=== PATIENT | male | born 1950 | race Caucasian/White ===

== ENCOUNTER 2022-08-07 14:53 | Outpatient (OUT) | payer MEDICARE, OTHER, SELFPAY ==
--- NOTE | 2022-08-07 15:24 | CT_ITS ---
[address] [address] Patient Name: CORINE LAWTON MRN: [id number] date: 1950 Sex: M Assigned Patient Location: LAB Current Patient Location: LAB Accession/Order Number: [id number] Exam Date: 08/07/2022 15:25 Report Date: 08/07/2022 17:09 At the request of: ALEX GORE Procedure: CT lung screening low-dose EXAMINATION: CT lung screening low-dose HISTORY: Nicotine dependence F17.210 COMPARISON: CT chest 07/26/2021 TECHNIQUE: Axial, Coronal, and Sagittal images were created without the administration of IV contrast material. Dose reduction techniques were achieved by using automated exposure control and/or adjustment of mA and/or kV according to patient size and/or use of iterative reconstruction technique. FINDINGS: LUNGS: No visible pulmonary disease. PLEURA: No mass, effusion, or pneumothorax. VASCULATURE: No abnormality. SYDNIE: No mass or pathologic adenopathy. MEDIASTINUM: No mass or pathologic adenopathy. CARDIAC: No enlargement, pericardial thickening, or significant calcification. AORTA: No aneurysm or dissection. CHEST WALL: No mass or axillary adenopathy BONES: No bone lesion or fracture. LIMITED ABDOMEN: No suspicious findings. Limited images of the upper abdomen. OTHER: Negative. IMPRESSION: 1. Lung-RADS Category 1 Negative. No nodules and definitely benign nodules. Continue annual screening with LDCT in 12 months. Electronically authenticated by: LATHA CHRISTIAN Date: 08/07/2022 17:09
[2022-08-07 15:54] LABS: Basophils Percent Auto 0.4 % (0.2-2.0); Eosinophils Absolute Auto 0.1 10^3/uL (0.0-0.7); Eosinophils Percent Auto 1.1 % (0.9-7.0); Hematocrit 40.7 % (42.0-54.0); Hemoglobin 13.5 g/dL (14.0-18.0); Immature Granulocytes Abs Auto 0.04 10^3/uL (0.00-0.03); Immature Granulocytes Pct Auto 0.6 % (0.0-0.5); Lymphocytes Absolute Auto 1.2 10^3/uL (1.2-3.8); Lymphocytes Percent Auto 16.9 % (20.5-60.0); Mean Corpuscular HGB Conc 33.2 g/dL (29.9-35.2); Mean Corpuscular Volume 99.5 fL (80.0-94.0); Mean Platelet Volume 10.5 fL (9.5-13.5); Monocytes Absolute Auto 0.8 10^3/uL (0.3-0.8); Monocytes Percent Auto 11.8 % (1.7-12.0); Neutrophils Absolute Auto 4.9 10^3/uL (1.4-6.5); Neutrophils Percent Auto 69.2 % (43.0-75.0); Platelet Count 226 10^3/uL (150-450); Red Blood Count 4.09 10^6/uL (4.70-6.10); Red Cell Distribution Width 13.6 % (11.0-15.0); White Blood Count 7.1 10^3/uL (4.0-11.0)
[2022-08-07 16:19] LABS: Anion Gap 12.1; BUN Creatinine Ratio 19.4; Calcium 8.6 mg/dL (8.5-10.1); Carbon Dioxide 27.4 mmol/L (21.0-32.0); Chloride 103 mmol/L (98-107); Estimated GFR (African America >60 (>=60); Estimated GFR (Non-African Ame >60 (>=60); Glucose 91 mg/dL (74-106); Potassium 4.5 mmol/L (3.5-5.1); Sodium 138 mmol/L (136-145)
[2022-08-07 16:24] LABS: Microalbumin Urine Random <1.3 mg/dL (<=30.0)
[2022-08-07 16:24] LABS: Estimated Average Glucose 105 mg/dL; Glycohemoglobin A1C 5.3 % (4.5-6.2)
[2022-08-07 17:05] LABS: Prostate Specific Antigen Scrn 0.44 ng/mL (<=4.00)
== END 2022-08-07 14:54 ==
PROVIDERS: PCP Internal Medicine; Visit Provider Internal Medicine
DX: Z79.899 Other long term (current) drug therapy (principal); E11.65 Type 2 diabetes mellitus with hyperglycemia; Z12.5 Encounter for screening for malignant neoplasm of prostate; F17.210 Nicotine dependence, cigarettes, uncomplicated
CPT/HCPCS: 36415; 71271; 80048; 82043; 83036; 85025; G0103

== ENCOUNTER 2023-08-11 10:13 | Outpatient (OUT) | payer MEDICARE, OTHER, SELFPAY ==
--- NOTE | 2023-08-11 10:36 | CT_ITS ---
[address] [address] Patient Name: CORINE LAWTON MRN: [id number] date: 1950 Sex: M Assigned Patient Location: CT Current Patient Location: Accession/Order Number: [id number] Exam Date: 08/11/2023 10:33 Report Date: 08/12/2023 09:03 At the request of: ALEX GORE Procedure: CT lung screening low-dose EXAMINATION: CT lung screening low-dose HISTORY: Nicotine Dependence COMPARISON: CT lung cancer screening 08/07/2022, 07/26/2021, 02/12/2018 TECHNIQUE: Axial, Coronal, and Sagittal images were created without the administration of IV contrast material. Dose reduction techniques were achieved by using automated exposure control and/or adjustment of mA and/or kV according to patient size and/or use of iterative reconstruction technique. FINDINGS: LUNGS: Stable, chronic small nodule versus scarring within right minor fissure. No new nodules, suspicious nodules, or infiltrates. PLEURA: No mass, effusion, or pneumothorax. VASCULATURE: No abnormality. SYDNIE: No mass or pathologic adenopathy. MEDIASTINUM: No mass or pathologic adenopathy. CARDIAC: No enlargement, pericardial thickening, or pericardial effusion. Coronary artery calcifications: Mild. AORTA: No aneurysm or dissection. CHEST WALL: No mass or axillary adenopathy BONES: No bone lesion or fracture. LIMITED ABDOMEN: No suspicious findings. Limited images of the upper abdomen. OTHER: Negative. CT/CT lung screening low-dose IMPRESSION: 1. Lung-RADS Category 1 Negative. No nodules and definitely benign nodules. Continue annual screening with LDCT in 12 months. Electronically authenticated by: LATHA CHRISTIAN Date: 08/12/2023 09:03
[2023-08-11 11:33] LABS: Alanine Aminotransferase 19 U/L (16-63); Albumin Globulin Ratio 0.9; Albumin Level 3.4 g/dL (3.4-5.0); Alkaline Phosphatase 79 U/L (46-116); Anion Gap 13.1; Aspartate Amino Transferase 17 U/L (15-37); BUN Creatinine Ratio 21.5; Bilirubin Total 0.5 mg/dL (0.2-1.0); Calcium 8.9 mg/dL (8.5-10.1); Carbon Dioxide 29.2 mmol/L (21.0-32.0); Chloride 104 mmol/L (98-107); Estimated GFR (African America >60 (>=60); Estimated GFR (Non-African Ame >60 (>=60); Glucose 81 mg/dL (74-106); Potassium 4.3 mmol/L (3.5-5.1); Sodium 142 mmol/L (136-145); Total Protein 7.4 g/dL (6.4-8.2)
[2023-08-11 11:47] LABS: Estimated Average Glucose 123 mg/dL; Glycohemoglobin A1C 5.9 % (4.5-6.2)
[2023-08-11 11:56] LABS: Prostate Specific Antigen Scrn 0.29 ng/mL (<=4.00)
[2023-08-12 16:10] LABS: Free Kappa Lt Chains,S 34.3 mg/L (3.3-19.4); Free Lambda Lt Chains,S 20.5 mg/L (5.7-26.3); Kappa/Lambda Ratio,S 1.67 (0.26-1.65)
[2023-08-13 16:10] LABS: Immunofixation Result, Serum Comment: (.); Immunoglobulin A, Qn, Serum 182 mg/dL (61-437); Immunoglobulin G, Qn, Serum 1066 mg/dL (603-1613); Immunoglobulin M, Qn, Serum 329 mg/dL (15-143)
== END 2023-08-11 10:14 | disposition home or self-care (01) ==
LOC: CT 10:13
PROVIDERS: PCP Internal Medicine; Visit Provider Internal Medicine
DX: D47.2 Monoclonal gammopathy (principal); F17.210 Nicotine dependence, cigarettes, uncomplicated; R73.01 Impaired fasting glucose; M06.9 Rheumatoid arthritis, unspecified; Z12.5 Encounter for screening for malignant neoplasm of prostate
CPT/HCPCS: 36415; 71271; 80053; 83036; 83521; G0103

== ENCOUNTER 2024-04-07 14:10 | Outpatient (OUT) | payer MEDICARE, OTHER, SELFPAY ==
--- OUTSIDE RECORDS SUMMARY | 2024-04-07 14:27 | XMS_ITS | CCD ---
Author Organization [facility] CliniSymo Care Team Providers Care Industrial Services Worker Name Role Phone CHUCK SANCHEZ Unavailable Unavailable DO Chuck Sanchez Primary Care Provider MD Enrico Rojas Attending Provider DO Chuck Sanchez Primary Care Provider HARRISON Strickland Attending Provider DO Chuck Sanchez Primary Care Provider HARRISON Strickland Attending Provider DR CHUCK SANCHEZ Attending Unavailable SOFÍA, DR JOHNSON Consulting Unavailable SOFÍA, DR JOHNSON Primary Care Unavailable SOFÍA, DR JOHNSON Admitting Unavailable SOFÍA, DR JOHNSON Attending Unavailable SOFÍA, DR JOHNSON Consulting Unavailable SOFÍA, DR JOHNSON Primary Care Unavailable SOFÍA, DR JOHNSON Admitting Unavailable ZIEBER, DR LATHA Crane Consulting Unavailable SOFÍA, DR JOHNSON Primary Care Unavailable LALO, CHARLINE DUARTE Attending Unavailable ROSS, CHARLINE DUARTE Consulting Unavailable ROSS, CHARLINE DUARTE Admitting Unavailable BALL, DR JOHNSON Attending Unavailable BALL, DR JOHNSON Consulting Unavailable SOFÍA, DR JOHNSON Primary Care Unavailable SOFÍA, DR JOHNSON Admitting Unavailable Dalia Jenkins Unavailable Chuck Sanchez Unavailable DO Chuck Sanchez Primary Care Provider MD Enrico Rojas Attending Provider [phone] Christen Gunter Unavailable DO Chuck Sanchez Primary Care Provider MD Enrico Rojas Attending Provider CHUCK SANCHEZ Primary Care Physician [phone] Chuck Sanchez MD Primary Care Provider DO Chuck Sanchez Primary Care Provider MD Estuardo Rojas Attending Provider [phone] Bob, Estuardo Attending Unavailable Ball, Chuck Primary Care Unavailable Rojas, Estuardo Admitting Unavailable Ball, Chuck Primary Care Unavailable Rojas, Estuardo Admitting Unavailable Rojas, Estuardo Attending Unavailable Ball, Chuck Primary Care Unavailable Rojas, Estuardo Admitting Unavailable Rojas, Estuardo Attending Unavailable DOLCE, LIBAN D Attending Unavailable DOLCE, LIBAN D Attending Unavailable DOLCE, LIBAN D Referring Unavailable DOLCE, LIBAN D Attending Unavailable DOLCE, LIBAN D Attending Unavailable DOLCE, LIBAN D Referring Unavailable DOLCE, LIBAN D Referring Unavailable DOLCE, LIBAN D Attending Unavailable DOLCE, LIBAN D Attending Unavailable DOLCE, LIBAN D Referring Unavailable DOLCE, LIBAN D Referring Unavailable DOLCE, LIBAN D Attending Unavailable DOLCE, LIBAN D Attending Unavailable DOLCE, LIBAN D Attending Unavailable DOLCE, LIBAN D Attending Unavailable DOLCE, LIBAN D Attending Unavailable DOLCE, LIBAN D Attending Unavailable DOLCE, LIBAN D Attending Unavailable DOLCE, LIBAN D Referring Unavailable Allergies Allergy Classification Reported Allergen(s) Allergy Type Date of Onset Reaction(s) Facility (6 sources) patient allergy list reviewed by nurse or physicia Propensity to adverse reactions 5 Comment:Done UB. Other Medications Current Medications Medication Drug Class(es) Dates Sig (Normalized) Sig (Original) acetaminophen 325 mg / oxyCODONE hydrochloride 5 mg oral tablet (3 sources) Opioid Agonist Start: 04-02-2023 End: 04-13-2023 oxyCODONE-acetam inophen (Percocet) 5-325 MG tablet Indications: Pain Take 1 tablet by mouth 4 (four) times a day as needed for severe pain for up to 5 days TAKE 1 PILL P.O. Q.4H P.R.N. PAIN 20 tablet 0 04/08/2023 04/13/2023 Active cephalexin 500 mg oral capsule (2 sources) Cephalosporin Antibacterial Start: 04-08-2023 End: 04-18-2023 take 1 capsule by mouth in the morning, then take 1 capsule by mouth in the evening, then take 1 capsule by mouth at bedtime, then take 1 capsule by mouth three times daily cephalexin (Keflex) 500 MG capsule Indications: Skin and Skin Structure Infection Take 1 capsule (500 mg) by mouth in the morning and 1 capsule (500 mg) in the evening and 1 capsule (500 mg) before bedtime. Do all this for 10 days. TAKE 1 PILL P.O. T.I.D. FOR 10 DAYS. 30 capsule 0 04/08/2023 04/18/2023 Active folic acid 1 mg oral tablet (20 sources) Start: 07-29-2023 End: 07-29-2023 take 1 tablet by mouth once daily Folic Acid 1 mg tablet Active 1 MG PO Daily July 29, 2023 12:54pm take 1 tablet by [facility] every twenty-four hours Folic Acid 1 MG 1 tablet Orally Once a day Active methotrexate 2.5 mg oral tablet (20 sources) Folate Analog Metabolic Inhibitor Start: 07-29-2023 take 1 tablet by mouth every week Methotrexate Sodium 2.5 mg tablet Active 2.5 MG PO every week July 28, 2023 11:00pm Start: 07-16-2022 take 7 tablets by mo [facility] every week methotrexate 2.5 MG tablet TAKE 7 TABLETS BY MOUTH ONCE A WEEK 07/16/2022 Active take 6 tablets by [facility] every week Methotrexate 2.5 mg 6 tablet every week Oral weekly Active traMADol hydrochloride 50 mg oral tablet (20 sources) Opioid Agonist Start: 07-29-2023 End: 07-29-2023 take 1 tablet by mouth every six hours Tramadol 50 mg tablet Active 50 MG PO Every 6 hours July 29, 2023 12:55pm take 1 tablet by mouth every six hours traMADol HCl 50 MG 1 tablet as needed Orally every 6 hrs Active Vitamin B-12 1000 MCG/15ML (10 sources) Vitamin B-12 100 0 MCG/15ML once a month Active vitamin b12 0.0667 mg/ml oral solution (16 sources) Vitamin B12 Start: 07-29-2023 take 1000 ug by mouth every month Cyanocobalamin (Vitamin B-12) 1,000 mcg/15 mL liquid Active 1000 MCG PO every month July 28, 2023 11:00pm Vitamin B-12 100 0 MCG/15ML once a month Active Vitamin B-12 100 0 MCG/15ML once a month Active Completed/Discontinued Medications Medication Drug Class(es) Dates Sig (Normalized) Sig (Original) B-12 - up to 1000 mcg (20 sources) Start: 04-01-2023 B-12 - up to 1000 mcg Mar, 1000 mcg Start: 02-26-2023 B-12 - up to 1 000 mcg Feb, 1000 mcg Start: 01-23-2023 B-12 - up to 1 000 mcg Dec, 1 mL Start: 12-19-2022 B-12 - up to 1 000 mcg Nov, 1000 mcg Start: 11-18-2022 B-12 - up to 1 000 mcg Oct, 1000 mcg Start: 10-16-2022 B-12 - up to 1 000 mcg Sep, 1000 mcg Start: 09-12-2022 B-12 - up to 1 000 mcg Aug, 1000 mcg Start: 08-07-2022 B-12 - up to 1 000 mcg Jul, 1000 mcg Start: 07-04-2022 B-12 - up to 1 000 mcg June, 1000 mcg Start: 05-30-2022 B-12 - up to 1 000 mcg May, 1000 mcg Start: 04-25-2022 B-12 - up to 1 000 mcg Apr, 1000 mcg B-12 injection PT BROUGHT OW N MED (17 sources) Start: 03-25-2022 B-12 injection PT BROUGHT OWN MED Feb, 1000 mcg Problems Active Problems Problem Classification Problem Date Documented Date Episodic/Chronic Acquired foot deformities (3 sources) Hallux valgus; Translations: [Hallux valgus (acquired), right foot] 04-02-2023 Chronic Deficiency and other anemia (4 sources) Anemia, unspecified; Translations: [ANEMIA UNSPECIFIED] Onset: 11-16-2021 Episodic Deficiency and other anemia (15 sources) Vitamin B12 deficiency anemia due to intrinsic factor deficiency; Translations: [Pernicious anemia] Onset: 08-09-2021 Episodic Deficiency and other anemia (20 sources) Pernicious anemia; Translations: [Vitamin B12 deficiency anemia due to intrinsic factor deficiency] 07-15-2023 Episodic Deficiency and other anemia (8 sources) Anemia; Translations: [Anemia, unspecified] Episodic Diabetes mellitus with complications (20 sources) Hyperglycemia due to type 2 diabetes mellitus; Translations: [Type 2 diabetes mellitus with hyperglycemia] Onset: 11-29-2014 Chronic Diabetes mellitus without complication (20 sources) Impaired fasting glucose; Translations: [Impaired fasting glycemia] Onset: 07-26-2021 Episodic Disorders of lipid metabolism (9 sources) Hyperlipidemia, unspecified; Translations: [Hyperlipidemia] Onset: 08-09-2021 Chronic Hyperplasia of prostate (16 sources) Benign prostatic hypertrophy without outflow obstruction; Translations: [Hypertrophy (benign) of prostate without urinary obstruction and other lower urinary tract symptoms [LUTS]] Onset: 11-29-2014 Chronic Immunizations and screening for infectious disease (8 sources) Vaccination given; Translations: [Encounter for immunization] Episodic Neoplasms of unspecified nature or uncertain behavior (20 sources) Monoclonal paraproteinemia; Translations: [Monoclonal gammopathy] 07-27-2023 Chronic Neoplasms of unspecified nature or uncertain behavior (4 sources) Neoplasm of uncertain behavior of skin; Translations: [Neoplasm of uncertain behavior of skin] 11-26-2023 Episodic Nutritional deficiencies (2 sources) Deficiency of other specified B group vitamins; Translations: [Other B-complex deficiencies] 10-20-2023 Episodic Osteoarthritis (20 sources) Degenerative joint disease involving multiple joints; Translations: [Polyosteoarthritis, unspecified] Onset: 06-09-2014 Chronic Other acquired deformities (17 sources) Spondylolysis; Translations: [Spondylolysis, lumbar region] Episodic Other acquired deformities (1 source) Spondylolysis, lumbar region Episodic Other acquired deformities (20 sources) Deformity of metatarsal; Translations: [Unspecified acquired deformity of unspecified lower leg] Onset: 11-27-2022 Resolved: 11-27-2022 11-27-2022 Episodic Other aftercare (1 source) Other meterman (current) drug therapy Episodic Other aftercare (8 sources) Long-term current use of drug therapy; Translations: [Other usp (current) drug therapy] Episodic Other connective tissue disease (8 sources) Pain in left foot; Translations: [Pain in left foot] 11-26-2023 Episodic Other injuries and conditions due to external causes (8 sources) History of fall; Translations: [History of falling] Episodic Other lower respiratory disease (1 source) Other nonspecific abnormal finding of lung field Episodic Other lower respiratory disease (8 sources) Lung field abnormal; Translations: [Other nonspecific abnormal finding of lung field] Episodic Other lower respiratory disease (8 sources) Solitary nodule of lung; Translations: [Solitary pulmonary nodule] Episodic Other lower respiratory disease (9 sources) Nodule of lung; Translations: [Solitary pulmonary nodule] 07-27-2023 Episodic Comment on above: LDCT w/o suspicious nodules - 07/2021, 07/2022, 07/2023 Other lower respiratory disease (5 sources) Solitary pulmonary nodule; Translations: [Solitary pulmonary nodule] 07-29-2023 Episodic Other nervous system disorders (17 sources) Chronic pain; Translations: [Other chronic pain] Chronic Other nervous system disorders (8 sources) Chronic pain syndrome; Translations: [Chronic pain syndrome] Onset: 06-09-2014 Chronic Other non-traumatic joint disorders (20 sources) Arthralgia of the lower leg; Translations: [Pain in left knee] Episodic Other screening for suspected conditions (not mental disorders or infectious disease) (8 sources) Encounter for screening for malignant neoplasm of prostate; Translations: [Encounter for screening for malignant neoplasm of colon] Onset: 08-09-2021 Episodic Rheumatoid arthritis and related disease (20 sources) Rheumatoid arthritis with rheumatoid factor 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 organ or systems involvement; Translations: [Rheumatoid arthritis with rheumatoid factor of left hand without organ or systems involvement] Onset: 06-09-2014 Chronic Spondylosis; intervertebral disc disorders; other back problems (20 sources) Lumbosacral spondylosis without myelopathy; Translations: [Spondylosis without myelopathy or radiculopathy, lumbar region] Onset: 02-11-2017 07-27-2023 Chronic Spondylosis; intervertebral disc disorders; other back problems (17 sources) Low back pain; Translations: [Low back pain] Episodic Substance-related disorders (20 sources) Nicotine dependence, cigarettes, uncomplicated; Translations: [Nicotine dependence] Onset: 08-09-2021 Chronic Unclassified (1 source) Rheumatoid arthritis with rheumatoid factor of multiple sites without organ or systems involvement; Translations: [Rheumatoid arthritis with rheumatoid factor of multiple sites without organ or systems involvement] Onset: 12-04-2022 Viral infection (4 sources) Verruca plantaris; Translations: [Plantar wart] 11-26-2023 Episodic Past or Other Problems Problem Classification Problem Date Documented Da te Episodic/Chronic Bacterial infection; unspecified site (8 sources) Bacterial infectious disease; Translations: [Bacterial infection, unspecified, in conditions classified elsewhere and of unspecified site] Onset: 03-18-2018 Episodic Genitourinary symptoms and ill-defined conditions (16 sources) Nocturia; Translations: [Nocturia] Onset: 02-11-2017 Episodic Inflammatory conditions of male genital organs (8 sources) Acute prostatitis; Translations: [Acute prostatitis] Onset: 03-18-2018 Episodic Malaise and fatigue (8 sources) Malaise and fatigue; Translations: [Other malaise and fatigue] Onset: 08-31-2015 Episodic Other connective tissue disease (8 sources) Ganglion and cyst of synovium, tendon and bursa; Translations: [Other ganglion and cyst of synovium, tendon, and bursa] Onset: 06-09-2014 Episodic Residual codes; unclassified (8 sources) Tobacco user; Translations: [Tobacco use] Onset: 02-11-2017 Episodic Skin and subcutaneous tissue infections (14 sources) Abscess of foot; Translations: [Cutaneous abscess of unspecified foot] Onset: 11-27-2022 Resolved: 11-27-2022 11-27-2022 Episodic Unclassified (8 sources) Long-term current use of drug therapy; Translations: [Long-term (current) use of other medications] Onset: 03-18-2018 Results Test Name Value Interpretation Reference Range Facility XR Foot - left 3 [facility] Result: XRAY: Three views were taken today AP/MO/LAT foot: significant degenerative arthritis noted of the left 1st metatarsophalangeal joint with severe osteophytic formation great toe joint appears to be subluxed with cystic formation noted. The lesser metatarsophalangeal joints are subluxed Fourth and 5th metatarsus not degenerative arthritis noted of the 2nd and 3rd metatarsal. s well with significant ankylosis noted. Severe fibular deviation noted as well with mild osteopenia. [facility] Radiology Study observation (narrative) [facility] Estimated glomerular filtrat ion rate (GFR) non- Americanon 08-11-2023 GFR/1.73 sq M.predicted among non-blacks MDRD (S/P/Bld) [Vol rate/Area] mL/min/{1.73_m2} >=60 [facility] Globulin Calc (S) [Mass/Vol] on 08-11-2023 Globulin (S) [Mass/Vol] 4.0 g/dL [facility] Glucose mean value [Mass/vol ume] in Blood Estimated from glycated hemoglobinon 08-11-2023 Average glucose Estimated from glycated hemoglobin (Bld) [Mass/Vol] 123 mg/dL [facility] IgA [Mass/volume] in Serum o r Plasmaon 08-11-2023 IgA [Mass/Vol] 182 mg/dL 61-437 [facility] IgG [Mass/volume] in Serum o r Plasmaon 08-11-2023 IgG [Mass/Vol] 1066 mg/dL 603-1613 [facility] IgM [Mass/volume] in Serum o r Plasmaon 08-11-2023 IgM [Mass/Vol] 329 mg/dL Abnormal 15-143 [facility] Comment on above: Performed at: [facility] [address] [id number] Director: Jesus Nam PhD, Phone: [phone] Immunoglobulin light chains. kappa.free [Mass/volume] in Serumon 08-11-2023 Immunoglobulin light chains.kappa.free (S) [Mass/Vol] 34.3 mg/L Abnormal 3.3-19.4 [facility] Immunoglobulin light chains. kappa.free/Immunoglobulin light chains.lambda.free [Julieth 08-11-2023 Immunoglobulin light chains.kappa.free/Immun oglobulin light chains.lambda.free (S) [Mass ratio] 1.67 Abnormal 0.26-1.65 [facility] Comment on above: Performed at: [facility] [id number] Director: Jesus Nam PhD, Phone: [phone] Immunoglobulin light chains. lambda.free [Mass/volume] in Serum or Plasmaon 08-11-2023 Immunoglobulin light chains.lambda.free [Mass/Vol] 20.5 mg/L 5.7-26.3 [facility] Laboratory - Chemistry and C hemistry - challengeon 08-11-2023 Albumin [Mass/Vol] 3.4 g/dL 3.4-5.0 [facility] ALP [Catalytic activity/Vol] 79 U/L 46-116 [facility] ALT [Catalytic activity/Vol] 19 U/L 16-63 [facility] AST [Catalytic activity/Vol] 17 U/L 15-37 [facility] Bilirubin [Mass/Vol] 0.5 mg/dL 0.2-1.0 [facility] Calcium [Mass/Vol] 8.9 mg/dL 8.5-10.1 [facility] Chloride [Moles/Vol] 104 mmol/L 98-107 [facility] CO2 [Moles/Vol] 29.2 mmol/L 21.0-32.0 [facility] Creatinine [Mass/Vol] 1.07 mg/dL 0.70-1.30 [facility] GFR/1.73 sq M.predicted MDRD (S/P/Bld) [Vol rate/Area] mL/min/{1.73_m2} >=60 [facility] Glucose [Mass/Vol] 81 mg/dL 74-106 [facility] Potassium [Moles/Vol] 4.3 mmol/L 3.5-5.1 [facility] Protein [Mass/Vol] 7.4 g/dL 6.4-8.2 [facility] Sodium [Moles/Vol] 142 mmol/L 136-145 [facility] Urea nitrogen [Mass/Vol] 23.0 mg/dL High 7.0-18.0 [facility] Urea nitrogen/Creatinine [Mass ratio] 21.5 mg/mg [facility] Laboratory - Hematology and Cell countson 08-11-2023 HbA1c (Bld) [Mass fraction] 5.9 % 4.5-6.2 [facility] Comment on above: ADA RECOMMENDED LIMI T 4.0 - 6.0ADA THERAPEUTIC TARGET < 7.0ACTION SUGGESTED> 7.0 No Panel Informationon 08-10 Prostate Specific Antigen Screen 0.29 ng/mL <=4.00 [facility] Serum Immunofixation Comment: . [facility] Comment on above: Presence of monoclon al protein is unclear at this time. Suggestrepeat in 3 to 6 months if clinically indicated. Serum or plasma albumin/glob ulin mass ratioon 08-11-2023 Albumin/Globulin [Mass ratio] 0.9 {ratio} [facility] Serum or plasma anion gap de terminationon 08-11-2023 Anion gap [Moles/Vol] 13.1 mmol/L [facility] Alanine aminotransferase [En zymatic activity/volume] in Serum or PlasmaOrdered By: Madhuri Strickland on 08-06-2023 ALT [Catalytic activity/Vol] 11 U/L 7-52 [facility] Comment on above: Performed By: #### C MP, ESR, CBC #### [place] [address] [place] Albumin [Mass/volume] in Ser um or Plasma by Bromocresol green (BCG) dye binding methoOrdered By: Madhuri Strickland on 08-06-2023 Albumin BCG dye [Mass/Vol] 4.0 g/dL 3.5-5.7 [facility] Alkaline phosphatase [Enzyma tic activity/volume] in Serum or PlasmaOrdered By: Madhuri Strickland on 08-06-2023 ALP [Catalytic activity/Vol] 63 U/L 34-104 [facility] Comment on above: Result Comment: PERF ORMED BY: [place] [address] PATHOLOGIST BLUE LEATHER SORTER SANDRA CHA M.D. Performed By: #### C MP, ESR, CBC #### [address] Aspartate aminotransferase [ Enzymatic activity/volume] in Serum or PlasmaOrdered By: Madhuri Strickland on 08-06-2023 AST [Catalytic activity/Vol] 15 U/L 13-39 [facility] Comment on above: Performed By: #### C MP, ESR, CBC #### [address] Automated basophil %Ordered By: Madhuri Strickland on 08-06-2023 Basophils/100 WBC (Bld) 0.7 % . [facility] Comment on above: Performed By: #### C MP, ESR, CBC #### [address] Automated basophil countOrde red By: Madhuri Strickland on 08-06-2023 Basophils (Bld) [#/Vol] 0.0 10*3/uL 0.0-0.2 [facility] Comment on above: Performed By: #### C MP, ESR, CBC #### [address] Automated blood monocyte cou ntOrdered By: Madhuri Strickland on 08-06-2023 Monocytes (Bld) [#/Vol] 0.7 10*3/uL 0.0-0.8 [facility] Comment on above: Performed By: #### C MP, ESR, CBC #### [address] Automated eosinophil %Ordere d By: Madhuri Strickland on 08-06-2023 Eosinophils/100 WBC (Bld) 1.7 % . [facility] Comment on above: Performed By: #### C MP, ESR, CBC #### [address] Automated eosinophil countOr dered By: Madhuri Strickland on 08-06-2023 Eosinophils (Bld) [#/Vol] 0.1 10*3/uL 0.0-0.45 [facility] Comment on above: Performed By: #### C MP, ESR, CBC #### [address] Automated monocyte %Ordered By: Madhuri Strickland on 08-06-2023 Monocytes/100 WBC (Bld) 10.1 % . [facility] Comment on above: Performed By: #### C MP, ESR, CBC #### [address] Automated neutrophil %Ordere d By: Madhuri Strickland on 08-06-2023 Neutrophils/100 WBC (Bld) 70.0 % . [facility] Comment on above: Performed By: #### C MP, ESR, CBC #### [address] Bilirubin.total [Mass/volume ] in Serum or PlasmaOrdered By: Madhuri Strickland on 08-06-2023 Bilirubin [Mass/Vol] 0.5 mg/dL 0.3-1.0 [facility] Comment on above: Performed By: #### C MP, ESR, CBC #### [facility] [address] [place] [address] Calcium [Mass/volume] in Ser um or PlasmaOrdered By: Madhuri Strickland on 08-06-2023 Calcium [Mass/Vol] 9.0 mg/dL 8.6-10.3 [facility] Comment on above: Performed By: #### C MP, ESR, CBC #### [address] Carbon dioxide, total [Moles /volume] in Serum or PlasmaOrdered By: Madhuri Strickland on 08-06-2023 CO2 [Moles/Vol] 26.2 mmol/L 21.0-31.0 [facility] Comment on above: Performed By: #### C MP, ESR, CBC #### [address] Chloride [Moles/volume] in S yun or PlasmaOrdered By: Madhuri Strickland on 08-06-2023 Chloride [Moles/Vol] 105 mmol/L 98-107 [facility] Comment on above: Performed By: #### C MP, ESR, CBC #### [address] Complete Blood Count Auto Di ffon 08-06-2023 Mean Corpuscular HGB Conc 33.1 g/dL Normal 32.5-35.6 [facility] Comment on above: Performed By: #### C MP, ESR, CBC #### [address] NRBC% 0.0 /100{WBC} Normal 0-0.5 [facility] Comment on above: Performed By: #### C MP, ESR, CBC #### [address] Comprehensive Metabolic Pane ben 08-06-2023 Albumin [Mass/Vol] 4.0 g/dL Normal 3.5-5.7 [facility] Comment on above: Performed By: #### C MP, ESR, CBC #### [address] GFR/1.73 sq M.predicted MDRD (S/P/Bld) [Vol rate/Area] mL/min/{1.73_m2} Normal [facility] Comment on above: Performed By: #### C MP, ESR, CBC #### [address] Creatinine [Mass/volume] in Serum or PlasmaOrdered By: Madhuri Strickland on 08-06-2023 Creatinine [Mass/Vol] 1.00 mg/dL 0.70-1.30 [facility] Comment on above: Performed By: #### C MP, ESR, CBC #### [address] Erythrocyte Sedimentation Ra avelina 08-06-2023 ESR (Bld) [Velocity] 27 mm/h High 0-19 [facility] Comment on above: Result Comment: PERF ORMED BY: [place] [address] PATHOLOGIST BLUE LEATHER SORTER SANDRA CHA M.D. Performed By: #### C MP, ESR, CBC #### [address] Erythrocyte distribution wid th [Ratio] by Automated countOrdered By: Madhuri Strickland on 08-06-2023 Erythrocyte distribution width (RBC) [Ratio] 13.2 % 12.0-14.8 [facility] Comment on above: Performed By: #### C MP, ESR, CBC #### [address] Erythrocyte sedimentation ra te by Photometric methodOrdered By: Madhuri Strickland on 08-06-2023 ESR Photometric method (Bld) [Velocity] 27 mm/hr High 0-19 [facility] Erythrocytes [#/volume] in B lood by Automated countOrdered By: Madhuri Strickland on 08-06-2023 RBC (Bld) [#/Vol] 4.41 10*6/uL 3.90-5.60 [facility] Comment on above: Performed By: #### C MP, ESR, CBC #### [facility] [address] Glucose [Mass/volume] in Ser um or PlasmaOrdered By: Madhuri Strickland on 08-06-2023 Glucose [Mass/Vol] 123 mg/dL High 70-100 [facility] Comment on above: ADA recommended refe rence rangeRandom Glucose Reference Range is dependent on time and content of last meal. Glucose of more than 200 mg/dL in a nonstressed, ambulatory subject supports the diagnosis of Diabetes Mellitus. Result Comment: Edroy om Glucose Reference Range is dependent on time and content of last meal. Glucose of more than 200 mg/dL in a nonstressed, ambulatory subject supports the diagnosis of Diabetes Mellitus. ADA recommended reference range Performed By: #### C MP, ESR, CBC #### [facility] [address] Hematocrit [Volume Fraction] of Blood by Automated countOrdered By: Madhuri Strickland on 08-06-2023 Hematocrit (Bld) [Volume fraction] 41.3 % 38.8-50.0 [facility] Comment on above: Performed By: #### C MP, ESR, CBC #### [facility] [address] Hemoglobin [Mass/volume] in BloodOrdered By: Madhuri Strickland on 08-06-2023 Hemoglobin (Bld) [Mass/Vol] 13.7 g/dL 13.0-17.0 [facility] Comment on above: Performed By: #### C MP, ESR, CBC #### [facility] [address] Leukocytes [#/volume] correc matthias for nucleated erythrocytes in Blood by Automated counOrdered By: Madhuri Strickland on 08-06-2023 WBC corrected for nucl RBC Auto (Bld) [#/Vol] 6.6 10*3/uL 4.1-10.5 [facility] Leukocytes [#/volume] in Blo od by Automated countOrdered By: Madhuri Strickland on 08-06-2023 WBC (Bld) [#/Vol] 6.6 10*3/uL 4.1-10.5 [facility] Comment on above: Performed By: #### C MP, ESR, CBC #### [address] Lymphocytes [#/volume] in Bl ood by Automated countOrdered By: Madhuri Strickland on 08-06-2023 Lymphocytes (Bld) [#/Vol] 1.2 10*3/uL 1.00-4.8 [facility] Comment on above: Performed By: #### C MP, ESR, CBC #### [address] Lymphocytes/100 leukocytes i n Blood by Automated countOrdered By: Madhuri Strickland on 08-06-2023 Lymphocytes/100 WBC (Bld) 17.5 % . [facility] Comment on above: Performed By: #### C MP, ESR, CBC #### [address] MCH [Entitic mass] by Automa matthias countOrdered By: Madhuri Strickland on 08-06-2023 MCH (RBC) [Entitic mass] 31.0 pg 27.5-35.2 [facility] Comment on above: Performed By: #### C MP, ESR, CBC #### [facility] [address] [place] [address] MCHC Auto (RBC) [Mass/Vol]Or dered By: Madhuri Strickland on 08-06-2023 MCHC (RBC) [Mass/Vol] 33.1 g/dL 32.5-35.6 [facility] MCV [Entitic volume] by Auto mated countOrdered By: Madhuri Strickland on 08-06-2023 MCV (RBC) [Entitic vol] 93.7 fL 83.5-101 [facility] Comment on above: Performed By: #### C MP, ESR, CBC #### [address] [address] [place] Neutrophils [#/volume] in Bl ood by Automated countOrdered By: Madhuri Strickland on 08-06-2023 Neutrophils (Bld) [#/Vol] 4.6 10*3/uL 1.8-7.7 [facility] Comment on above: Performed By: #### C MP, ESR, CBC #### [facility] [address] [place] [address] No Panel InformationOrdered By: Madhuri Strickland on 08-06-2023 Estimated GFR (CKD-EPI) > 60.0 mL/Min [facility] Creatinine Clearance (Chem N/A [facility] Nucleated erythrocytes [Pres ence] in Blood by Automated countOrdered By: Madhuri Strickland on 08-06-2023 Nucleated RBC Auto Ql (Bld) 0.0 /100{WBC} 0-0.5 [facility] Platelet mean volume [Entiti c volume] in Blood by Automated countOrdered By: Madhuri Strickland on 08-06-2023 Platelet mean volume (Bld) [Entitic vol] 12.4 fL High 6.6-10.1 [facility] Comment on above: Performed By: #### C MP, ESR, CBC #### [facility] [address] [place] [address] Platelets [#/volume] in Bloo d by Automated countOrdered By: Madhuri Strickland on 08-06-2023 Platelets (Bld) [#/Vol] 178 10*3/uL 150-450 [facility] Comment on above: Performed By: #### C MP, ESR, CBC #### [facility] [address] [place] [address] [place] Potassium [Moles/volume] in Serum or PlasmaOrdered By: Madhuri Strickland on 08-06-2023 Potassium [Moles/Vol] 4.7 mmol/L 3.5-5.1 [facility] Comment on above: Performed By: #### C MP, ESR, CBC #### [facility] [address] [place] [address] [place] Protein [Mass/volume] in Ser um or PlasmaOrdered By: Madhuri Strickland on 08-06-2023 Protein [Mass/Vol] 6.5 g/dL 6.4-8.9 [facility] Comment on above: Performed By: #### C MP, ESR, CBC #### [address] Serum globulin measurement b y calculation (mass/volume)Ordered By: Madhuri Strickland on 08-06-2023 Globulin (S) [Mass/Vol] 2.5 g/dL [facility] Comment on above: Performed By: #### C MP, ESR, CBC #### [address] Serum or plasma albumin/glob ulin mass ratioOrdered By: Madhuri Strickland on 08-06-2023 Albumin/Globulin [Mass ratio] 1.6 {ratio} [facility] Comment on above: Performed By: #### C MP, ESR, CBC #### [address] Serum or plasma anion gap de terminationOrdered By: Madhuri Strickland on 08-06-2023 Anion gap [Moles/Vol] 11.5 mmol/L 6.0-15.[address] [facility] Comment on above: Performed By: #### C MP, ESR, CBC #### [address] Sodium [Moles/volume] in Ser um or PlasmaOrdered By: Madhuri Strickland on 08-06-2023 Sodium [Moles/Vol] 138 mmol/L 136-145 [facility] Comment on above: Performed By: #### C MP, ESR, CBC #### [address] Urea nitrogen [Mass/volume] in Serum or PlasmaOrdered By: Madhuri Strickland on 08-06-2023 Urea nitrogen [Mass/Vol] 24 mg/dL 7-25 [facility] Comment on above: Performed By: #### C MP, ESR, CBC #### [facility] [address] CHEMISTRYOrdered By: SYSTEM SYSTEM on 03-12-2023 Anion gap [Moles/Vol] 9 mmol/L Normal 6 - 16 mEq/L [facility] Calcium [Mass/Vol] 9.3 mg/dL Normal 8.9 - 11. 1 mg/dL [facility] Chloride [Moles/Vol] 106 mmol/L Normal 101 - 1 11 mmol/L [facility] CO2 [Moles/Vol] 30 mmol/L Normal 21 - 31 mmol/L [facility] Creatinine [Mass/Vol] 0.9 mg/dL Normal 0.5 - 1.3 mg/dL [facility] eGFR 91 mL/min/1.73 m2 Normal >=59mL/min / 1.73 m2 [facility] Glucose [Mass/Vol] 90 mg/dL Normal 55 - 199 mg/dL [facility] Potassium [Moles/Vol] 4.3 mmol/L Normal 3.5 - 5.3 mmol/L [facility] Sodium [Moles/Vol] 141 mmol/L Normal 135 - 145 mmol/L [facility] Urea nitrogen [Mass/Vol] 19 mg/dL Normal 5 - 21 mg/dL [facility] Urea nitrogen/Creatinine [Mass ratio] 21 mg/mg High 10 - 20 [facility] HEMATOLOGYOrdered By: SYSTEM SYSTEM on 03-12-2023 Basophil Absolute 0.0 E9/L Normal 0.0 - 0.2 E9/L [facility]e Basophils/100 WBC (Bld) 0.5 % Normal 0.0 - 2.0 % [facility]e Eos Absolute 0.1 E9/L Normal 0.0 - 0.5 E9/L [facility] Eosinophils/100 WBC (Bld) 0.8 % Normal 0.0 - 8.0 % [facility] Erythrocyte distribution width (RBC) [Ratio] 14.0 % Normal 10.9 - 14.2 % [facility] Hematocrit (Bld) [Volume fraction] 45.0 % Normal 37.7 - 49.0 % [facility] Hemoglobin (Bld) [Mass/Vol] 14.7 g/dL Normal 13.5 - 17.5 gm/dL [facility] Lymph Absolute 1.2 E9/L Normal 1.0 - 4.0 E9/L [facility]e Lymphocytes/100 WBC (Bld) 14.2 % Normal 14.0 - 50.0 % [facility]e MCH (RBC) [Entitic mass] 32.5 pg Normal 27.0 - 34.0 pg [facility] Heme MCHC (RBC) [Mass/Vol] 32.5 g/dL Normal 31.4 - 36.0 gm/dL [facility]e MCV (RBC) [Entitic vol] 99.9 fL Normal 80.0 - 100.0 fL [facility] Heme [place] Absolute 1.0 E9/L Normal 0.2 - 1.0 E9/L [facility]e Monocytes/100 WBC (Bld) 11.3 % Normal 4.0 - 14.0 % [facility] Neutro Absolute 6.3 E9/L Normal 2.0 - 7.5 E9/L [facility] Neutro Auto 73.2 % Normal 36.0 - 75.0 % [facility] Platelet 212.0 E9/L Normal 150.0 - 500.0 E9/L [facility] Platelet mean volume (Bld) [Entitic vol] 9.6 fL Normal 6.4 - 10.8 fL [facility] Heme RBC 4.5 E12/L Normal 4.3 - 5.9 E12/L [facility] WBC 8.7 E9/L Normal 4.0 - 11.0 E9/L [facility] Heme Complete Blood Count Auto Di ffon 12-04-2022 Basophils (Bld) [#/Vol] 0.0 10*3/uL Normal 0.0-0.2 [facility] Comment on above: Performed By: #### E SR, CMP, CBC #### [facility] [address] [place] [address] [place] Basophils/100 WBC (Bld) 0.6 % Normal . [facility] Comment on above: Performed By: #### E SR, CMP, CBC #### [facility] [address] [place] [address] [place] Eosinophils (Bld) [#/Vol] 0.1 10*3/uL Normal 0.0-0.45 [facility] Comment on above: Performed By: #### E SR, CMP, CBC #### [address] Eosinophils/100 WBC (Bld) 0.8 % Normal . [facility] Comment on above: Performed By: #### E SR, CMP, CBC #### [address] Erythrocyte distribution width (RBC) [Ratio] 14.3 % Normal 12.0-14.8 [facility] Comment on above: Performed By: #### E SR, CMP, CBC #### [address] Hematocrit (Bld) [Volume fraction] 42.0 % Normal 38.8-50.0 [facility] Comment on above: Performed By: #### E SR CMP, CBC #### [address] Hemoglobin (Bld) [Mass/Vol] 14.0 g/dL Normal 13.0-17.0 [facility] Comment on above: Performed By: #### E SR CMP, CBC #### [address] Lymphocytes (Bld) [#/Vol] 1.2 10*3/uL Normal 1.00-4.8 [facility] Comment on above: Performed By: #### E SR, CMP, CBC #### [address] Lymphocytes/100 WBC (Bld) 16.2 % Normal . [facility] Comment on above: Performed By: #### E SR, CMP, CBC #### [address] MCH (RBC) [Entitic mass] 32.9 pg Normal 27.5-35.2 [facility] Comment on above: Performed By: #### E SR, CMP, CBC #### [address] MCV (RBC) [Entitic vol] 98.4 fL Normal 83.5-101 [facility] Comment on above: Performed By: #### E SR, CMP, CBC #### [address] Mean Corpuscular HGB Conc 33.4 g/dL Normal 32.5-35.6 [facility] Comment on above: Performed By: #### E SR, CMP, CBC #### [facility] [address] Monocytes (Bld) [#/Vol] 0.5 10*3/uL Normal 0.0-0.8 [facility] Comment on above: Performed By: #### E SR, CMP, CBC #### [address] Monocytes/100 WBC (Bld) 7.3 % Normal . [facility] Comment on above: Performed By: #### E SR, CMP, CBC #### [address] Neutrophils (Bld) [#/Vol] 5.6 10*3/uL Normal 1.8-7.7 [facility] Comment on above: Performed By: #### E SR, CMP, CBC #### [address] Neutrophils/100 WBC (Bld) 75.1 % Normal . [facility] Comment on above: Performed By: #### E SR, CMP, CBC #### [address] NRBC% 0.1 /100{WBC} Normal 0-0.5 [facility] Comment on above: Performed By: #### E SR, CMP, CBC #### [address] Platelet mean volume (Bld) [Entitic vol] 10.8 fL High 6.6-10.1 [facility] Comment on above: Performed By: #### E SR, CMP, CBC #### [address] Platelets (Bld) [#/Vol] 186 10*3/uL Normal 150-450 [facility] Comment on above: Performed By: #### E SR, CMP, CBC #### [address] RBC (Bld) [#/Vol] 4.27 10*6/uL Normal 3.90-5.60 [facility] Comment on above: Performed By: #### E SR, CMP, CBC #### [address] WBC (Bld) [#/Vol] 7.5 10*3/uL Normal 4.1-10.5 [facility] Comment on above: Performed By: #### E SR, CMP, CBC #### [address] Comprehensive Metabolic Pane ben 12-04-2022 Albumin [Mass/Vol] 4.2 g/dL Normal 3.5-5.7 [facility] Comment on above: Performed By: #### E SR, CMP, CBC #### [address] Albumin/Globulin [Mass ratio] 1.8 {ratio} Normal [facility] Comment on above: Performed By: #### E SR, CMP, CBC #### [address] ALP [Catalytic activity/Vol] 58 U/L Normal 34-104 [facility] Comment on above: Result Comment: PERF ORMED BY: [place] [address] PATHOLOGIST BLUE LEATHER SORTER SANDRA CHA M.D. Performed By: #### E SR, CMP, CBC #### [address] ALT [Catalytic activity/Vol] 10 U/L Normal 7-52 [facility] Comment on above: Performed By: #### E SR, CMP, CBC #### [address] Anion gap [Moles/Vol] 8.2 mmol/L Normal 6.0-15.0 [facility] Comment on above: Performed By: #### E SR, CMP, CBC #### [facility] [address] AST [Catalytic activity/Vol] 13 U/L Normal 13-39 [facility] Comment on above: Performed By: #### E SR CMP, CBC #### [facility] [address] [place] [id number] [facility] Bilirubin [Mass/Vol] 0.4 mg/dL Normal 0.3-1.0 [facility] Comment on above: Performed By: #### E SR, CMP, CBC #### [facility] [address] Calcium [Mass/Vol] 9.2 mg/dL Normal 8.6-10.3 [facility] Comment on above: Performed By: #### E SR CMP, CBC #### [facility] [address] Chloride [Moles/Vol] 105 mmol/L Normal 98-107 [facility] Comment on above: Performed By: #### E SR CMP, CBC #### [place] [address] [place] CO2 [Moles/Vol] 31.0 mmol/L Normal 21.0-31.0 [facility] Comment on above: Performed By: #### E SR CMP, CBC #### [facility] [address] [place] [address] [place] Creatinine [Mass/Vol] 1.00 mg/dL Normal 0.70-1.30 [facility] Comment on above: Performed By: #### E SR CMP, CBC #### [place] [id number] [place] GFR/1.73 sq M.predicted MDRD (S/P/Bld) [Vol rate/Area] mL/min/{1.73_m2} Normal [facility] Comment on above: Performed By: #### E SR, CMP, CBC #### [facility] [address] [place] [address] [place] Globulin (S) [Mass/Vol] 2.3 g/dL Normal [facility] Comment on above: Performed By: #### E SR, CMP, CBC #### [address] Glucose [Mass/Vol] 162 mg/dL High 70-100 [facility] Comment on above: Result Comment: [place] Glucose Reference Range is dependent on time and content of last meal. Glucose of more than 200 mg/dL in a nonstressed, ambulatory subject supports the diagnosis of Diabetes Mellitus. ADA recommended reference range Performed By: #### E SUE ACUÑA, CBC #### [address] Potassium [Moles/Vol] 4.2 mmol/L Normal 3.5-5.1 [facility] Comment on above: Performed By: #### E SUE ACUÑA, CBC #### [address] Protein [Mass/Vol] 6.5 g/dL Normal 6.4-8.9 [facility] Comment on above: Performed By: #### E SUE ACUÑA, CBC #### [address] Sodium [Moles/Vol] 140 mmol/L Normal 136-145 [facility] Comment on above: Performed By: #### E SUE ACUÑA, CBC #### [address] Urea nitrogen [Mass/Vol] 13 mg/dL Normal 7-25 [facility] Comment on above: Performed By: #### E SUE ACUÑA, CBC #### [address] Erythrocyte Sedimentation Ra avelina 12-04-2022 ESR (Bld) [Velocity] 22 mm/h High 0-19 [facility] Comment on above: Result Comment: PERF ORMED BY: [place] [address] PATHOLOGIST BLUE LEATHER SORTER SANDRA CHA M.D. Performed By: #### E SR CMP, CBC #### [address] Physician Orderon 11-28-2022 Physician Order [id number] D:127 Normal [facility] Physician Orderon 11-27-2022 Physician Order [id number] D:127 Normal [facility] Alanine aminotransferase [En zymatic activity/volume] in Serum or PlasmaOrdered By: Estuardo Rojas on 09-05-2022 ALT [Catalytic activity/Vol] 14 U/L Normal 7-52 [facility] Comment on above: Performed By: #### E SR, CMP, CBC #### [facility] [address] Albumin [Mass/volume] in Ser um or Plasma by Bromocresol green (BCG) dye binding methoOrdered By: Estuardo Rojas on 09-05-2022 Albumin BCG dye [Mass/Vol] 3.9 g/dL 3.5-5.7 [facility] Alkaline phosphatase [Enzyma tic activity/volume] in Serum or PlasmaOrdered By: Estuardo Rojas on 09-05-2022 ALP [Catalytic activity/Vol] 46 U/L Normal 34-104 [facility] Comment on above: Result Comment: PERF ORMED BY: [place] [address] PATHOLOGIST BLUE LEATHER SORTER SANDRA CHA M.D. Performed By: #### E SR, CMP, CBC #### [facility] [address] [place] [address] Aspartate aminotransferase [ Enzymatic activity/volume] in Serum or PlasmaOrdered By: Estuardo Rojas on 09-05-2022 AST [Catalytic activity/Vol] 16 U/L Normal 13-39 [facility] Comment on above: Performed By: #### E SR, CMP, CBC #### [facility] [address] [place] [address] Automated basophil %Ordered By: Estuardo Rojas on 09-05-2022 Basophils/100 WBC (Bld) 0.6 % Normal . [facility] Comment on above: Performed By: #### E SR, CMP, CBC #### [address] Automated basophil countOrde red By: Estuardo Rojas on 09-05-2022 Basophils (Bld) [#/Vol] 0.0 10*3/uL Normal 0.0-0.2 [facility] Comment on above: Performed By: #### E SR, CMP, CBC #### [address] Automated blood monocyte cou ntOrdered By: Estuardo Westrow on 09-05-2022 Monocytes (Bld) [#/Vol] 0.6 10*3/uL Normal 0.0-0.8 [facility] Comment on above: Performed By: #### E SR, CMP, CBC #### [address] Automated eosinophil %Ordere d By: Estuardo Westrow on 09-05-2022 Eosinophils/100 WBC (Bld) 0.8 % Normal . [facility] Comment on above: Performed By: #### E SR, CMP, CBC #### [address] Automated eosinophil countOr dered By: Estuardo Westrow on 09-05-2022 Eosinophils (Bld) [#/Vol] 0.1 10*3/uL Normal 0.0-0.45 [facility] Comment on above: Performed By: #### E SR, CMP, CBC #### [address] Automated monocyte %Ordered By: Estuardo Westrow on 09-05-2022 Monocytes/100 WBC (Bld) 8.9 % Normal . [facility] Comment on above: Performed By: #### E SR, CMP, CBC #### [address] Automated neutrophil %Ordere d By: Estuardo Westrow on 09-05-2022 Neutrophils/100 WBC (Bld) 74.0 % Normal . [facility] Comment on above: Performed By: #### E SR, CMP, CBC #### [address] [place] [address] [place] Bilirubin.total [Mass/volume ] in Serum or PlasmaOrdered By: Estuardo Rojas on 09-05-2022 Bilirubin [Mass/Vol] 0.3 mg/dL Normal 0.3-1.0 [facility] Comment on above: Performed By: #### E SR, CMP, CBC #### [address] Calcium [Mass/volume] in Ser um or PlasmaOrdered By: Estuardo Westrow on 09-05-2022 Calcium [Mass/Vol] 8.9 mg/dL Normal 8.6-10.3 [facility] Comment on above: Performed By: #### E SR, CMP, CBC #### [address] Carbon dioxide, total [Moles /volume] in Serum or PlasmaOrdered By: Estuardo Westrow on 09-05-2022 CO2 [Moles/Vol] 30.0 mmol/L Normal 21.0-31.0 [facility] Comment on above: Performed By: #### E SR, CMP, CBC #### [address] Chloride [Moles/volume] in S yun or PlasmaOrdered By: Estuardo Westrow on 09-05-2022 Chloride [Moles/Vol] 107 mmol/L Normal 98-107 [facility] Comment on above: Performed By: #### E SR, CMP, CBC #### [address] Complete Blood Count Auto Di ffon 09-05-2022 Mean Corpuscular HGB Conc 33.1 g/dL Normal 32.5-35.6 [facility] Comment on above: Performed By: #### E SR, CMP, CBC #### [address] NRBC% 0.0 /100{WBC} Normal 0-0.5 [facility] Comment on above: Performed By: #### E SR, CMP, CBC #### [address] Comprehensive Metabolic Pane ben 09-05-2022 Albumin [Mass/Vol] 3.9 g/dL Normal 3.5-5.7 [facility] Comment on above: Performed By: #### E SR CMP, CBC #### [address] GFR/1.73 sq M.predicted MDRD (S/P/Bld) [Vol rate/Area] 55.494 mL/min/{1.73_m2} Normal [facility] Comment on above: Performed By: #### E SR, CMP, CBC #### [address] Creatinine [Mass/volume] in Serum or PlasmaOrdered By: Estuardo Rojas on 09-05-2022 Creatinine [Mass/Vol] 1.37 mg/dL High 0.70-1.30 [facility] Comment on above: Performed By: #### E SR CMP, CBC #### [address] Erythrocyte Sedimentation Ra avelina 09-05-2022 ESR (Bld) [Velocity] 26 mm/h High 0-19 [facility] Comment on above: Result Comment: PERF ORMED BY: [place] [address] PATHOLOGIST BLUE LEATHER SORTER SANDRA CHA M.D. Performed By: #### E SRSUE, CBC #### [address] Erythrocyte distribution wid th [Ratio] by Automated countOrdered By: Estuardo Rojas on 09-05-2022 Erythrocyte distribution width (RBC) [Ratio] 13.8 % Normal 12.0-14.8 [facility] Comment on above: Performed By: #### E SR CMP, CBC #### [address] Erythrocyte sedimentation ra te by Photometric methodOrdered By: Estuardo Rojas on 09-05-2022 ESR Photometric method (Bld) [Velocity] 26 mm/hr 0-19 [facility] Erythrocytes [#/volume] in B lood by Automated countOrdered By: Estuardo Rojas on 09-05-2022 RBC (Bld) [#/Vol] 3.79 10*6/uL Low 3.90-5.60 [facility] Comment on above: Performed By: #### E SUE ACUÑA, CBC #### [facility] [address] Glucose [Mass/volume] in Ser um or PlasmaOrdered By: Estuardo Rojas on 09-05-2022 Glucose [Mass/Vol] 98 mg/dL Normal 70-100 [facility] Comment on above: ADA recommended refe rence rangeRandom Glucose Reference Range is dependent on time and content of last meal. Glucose of more than 200 mg/dL in a nonstressed, ambulatory subject supports the diagnosis of Diabetes Mellitus. Result Comment: [place] Glucose Reference Range is dependent on time and content of last meal. Glucose of more than 200 mg/dL in a nonstressed, ambulatory subject supports the diagnosis of Diabetes Mellitus. ADA recommended reference range Performed By: #### E SUE ACUÑA, CBC #### [facility] [address] Hematocrit [Volume Fraction] of Blood by Automated countOrdered By: Estuardo Rojas on 09-05-2022 Hematocrit (Bld) [Volume fraction] 37.4 % Low 38.8-50.0 [facility] Comment on above: Performed By: #### E SUE ACUÑA, CBC #### [facility] [address] Hemoglobin [Mass/volume] in BloodOrdered By: Estuardo Rojas on 09-05-2022 Hemoglobin (Bld) [Mass/Vol] 12.4 g/dL Low 13.0-17.0 [facility] Comment on above: Performed By: #### E SUE ACUÑA, CBC #### [facility] [address] Leukocytes [#/volume] correc matthias for nucleated erythrocytes in Blood by Automated counOrdered By: Estuardo Rojas on 07-13-2023 WBC corrected for nucl RBC Auto (Bld) [#/Vol] 6.3 10*3/uL 4.1-10.5 [facility] Leukocytes [#/volume] in Blo od by Automated countOrdered By: Estuardo Rojas on 09-05-2022 WBC (Bld) [#/Vol] 6.3 10*3/uL Normal 4.1-10.5 [facility] Comment on above: Performed By: #### E SR, CMP, CBC #### [facility] [address] Lymphocytes [#/volume] in Bl ood by Automated countOrdered By: Estuardo Rojas on 09-05-2022 Lymphocytes (Bld) [#/Vol] 1.0 10*3/uL Normal 1.00-4.8 [facility] Comment on above: Performed By: #### E SR, CMP, CBC #### [facility] [address] [place] [address] Lymphocytes/100 leukocytes i n Blood by Automated countOrdered By: Estuardo Rojas on 09-05-2022 Lymphocytes/100 WBC (Bld) 15.7 % Normal . [facility] Comment on above: Performed By: #### E SR, CMP, CBC #### [facility] [address] [place] [address] MCH [Entitic mass] by Automa matthias countOrdered By: Estuardo Rojas on 09-05-2022 MCH (RBC) [Entitic mass] 32.7 pg Normal 27.5-35.2 [facility] Comment on above: Performed By: #### E SR, CMP, CBC #### [facility] [address] [place] [address] MCHC Auto (RBC) [Mass/Vol]Or dered By: Estuardo Rojas on 09-05-2022 MCHC (RBC) [Mass/Vol] 33.1 g/dL 32.5-35.6 [facility] MCV [Entitic volume] by Auto mated countOrdered By: Estuardo Rojas on 09-05-2022 MCV (RBC) [Entitic vol] 98.7 fL Normal 83.5-101 [facility] Comment on above: Performed By: #### E SR, CMP, CBC #### [address] Neutrophils [#/volume] in Bl ood by Automated countOrdered By: Estuardo Rojas on 09-05-2022 Neutrophils (Bld) [#/Vol] 4.7 10*3/uL Normal 1.8-7.7 [facility] Comment on above: Performed By: #### E SR, CMP, CBC #### [address] No Panel InformationOrdered By: Estuardo Rojas on 09-05-2022 Estimated GFR (CKD-EPI) 55.494 mL/Min [facility] Creatinine Clearance (Chem N/A [facility] Nucleated erythrocytes [Pres ence] in Blood by Automated countOrdered By: Estuardo Rojas on 09-05-2022 Nucleated RBC Auto Ql (Bld) 0.0 /100{WBC} 0-0.5 [facility] Platelet mean volume [Entiti c volume] in Blood by Automated countOrdered By: Estuardo Rojas on 09-05-2022 Platelet mean volume (Bld) [Entitic vol] 11.7 fL High 6.6-10.1 [facility] Comment on above: Performed By: #### E SR, CMP, CBC #### [address] Platelets [#/volume] in Bloo d by Automated countOrdered By: Estuardo Rojas on 09-05-2022 Platelets (Bld) [#/Vol] 199 10*3/uL Normal 150-450 [facility] Comment on above: Performed By: #### E SR, CMP, CBC #### [facility] [address] [place] [address] Potassium [Moles/volume] in Serum or PlasmaOrdered By: Estuardo Rojas on 09-05-2022 Potassium [Moles/Vol] 4.7 mmol/L Normal 3.5-5.1 [facility] Comment on above: Performed By: #### E SR, CMP, CBC #### [address] Protein [Mass/volume] in Ser um or PlasmaOrdered By: Estuardo Rojas on 09-05-2022 Protein [Mass/Vol] 6.1 g/dL Low 6.4-8.9 [facility] Comment on above: Performed By: #### E SR CMP, CBC #### [address] Serum globulin measurement b y calculation (mass/volume)Ordered By: Estuardo Rojas on 09-05-2022 Globulin (S) [Mass/Vol] 2.2 g/dL Normal [facility] Comment on above: Performed By: #### E SUE ACUÑA, CBC #### [address] Serum or plasma albumin/glob ulin mass ratioOrdered By: Estuardo Rojas on 09-05-2022 Albumin/Globulin [Mass ratio] 1.8 {ratio} Normal [facility] Comment on above: Performed By: #### E SR CMP, CBC #### [address] Serum or plasma anion gap de terminationOrdered By: Estuardo Rojas on 09-05-2022 Anion gap [Moles/Vol] 7.7 mmol/L Normal 6.0-15.0 [facility] Comment on above: Performed By: #### E SUE ACUÑA, CBC #### [place] [address] [place] Sodium [Moles/volume] in Ser um or PlasmaOrdered By: Estuardo Rojas on 09-05-2022 Sodium [Moles/Vol] 140 mmol/L Normal 136-145 [facility] Comment on above: Performed By: #### E SR CMP, CBC #### [address] Urea nitrogen [Mass/volume] in Serum or PlasmaOrdered By: Estuardo Rojas on 09-05-2022 Urea nitrogen [Mass/Vol] 21 mg/dL Normal 7-25 [facility] Comment on above: Performed By: #### E SR, CMP, CBC #### [facility] [address] Alanine aminotransferase [En zymatic activity/volume] in Serum or PlasmaOrdered By: Estuardo Rojas on 06-06-2022 ALT [Catalytic activity/Vol] 16 U/L 7-52 [facility] Albumin [Mass/volume] in Ser um or Plasma by Bromocresol green (BCG) dye binding methoOrdered By: Estuardo Rojas on 06-06-2022 Albumin BCG dye [Mass/Vol] 4.0 g/dL 3.5-5.7 [facility] Alkaline phosphatase [Enzyma tic activity/volume] in Serum or PlasmaOrdered By: Estuardo Rojas on 06-06-2022 ALP [Catalytic activity/Vol] 52 U/L 34-104 [facility] Aspartate aminotransferase [ Enzymatic activity/volume] in Serum or PlasmaOrdered By: Estuardo Rojas on 06-06-2022 AST [Catalytic activity/Vol] 15 U/L 13-39 [facility] Basophils Auto (Bld) [#/Vol] Ordered By: Estuardo Rojas on 06-06-2022 Basophils (Bld) [#/Vol] 0.1 10*3/uL 0.0-0.2 [facility] Basophils/100 WBC Auto (Bld) Ordered By: Estuardo Rojas on 06-06-2022 Basophils/100 WBC (Bld) 0.9 % . [facility] Bilirubin.total [Mass/volume ] in Serum or PlasmaOrdered By: Estuardo Rojas on 06-06-2022 Bilirubin [Mass/Vol] 0.4 mg/dL 0.3-1.0 [facility] Calcium [Mass/volume] in Ser um or PlasmaOrdered By: Estuardo Rojas on 06-06-2022 Calcium [Mass/Vol] 8.5 mg/dL 8.6-10.3 [facility] Carbon dioxide, total [Moles /volume] in Serum or PlasmaOrdered By: Estuardo Rojas on 06-06-2022 CO2 [Moles/Vol] 27.4 mmol/L 21.0-31.0 [facility] Chloride [Moles/volume] in S yun or PlasmaOrdered By: Estuardo Rojas on 06-06-2022 Chloride [Moles/Vol] 108 mmol/L 98-107 [facility] Creatinine [Mass/volume] in Serum or PlasmaOrdered By: Estuardo Rojas on 06-06-2022 Creatinine [Mass/Vol] 1.11 mg/dL 0.70-1.30 [facility] Eosinophils Auto (Bld) [#/Vo l]Ordered By: Estuardo Rojas on 06-06-2022 Eosinophils (Bld) [#/Vol] 0.1 10*3/uL 0.0-0.45 [facility] Eosinophils/100 WBC Auto (Bl d)Ordered By: Estuardo Rojas on 06-06-2022 Eosinophils/100 WBC (Bld) 1.3 % . [facility] Erythrocyte distribution wid th Auto (RBC) [Ratio]Ordered By: Estuardo Rojas on 06-06-2022 Erythrocyte distribution width (RBC) [Ratio] 14.2 % 12.0-14.8 [facility] Erythrocyte sedimentation ra te by Photometric methodOrdered By: Estuardo Rojas on 06-06-2022 ESR Photometric method (Bld) [Velocity] 15 mm/hr 0-19 [facility] Globulin Calc (S) [Mass/Vol] Ordered By: Estuardo Rojas on 06-06-2022 Globulin (S) [Mass/Vol] 2.1 g/dL [facility] Glucose [Mass/volume] in Ser um or PlasmaOrdered By: Estuardo Rojas on 06-06-2022 Glucose [Mass/Vol] 137 mg/dL 70-100 [facility] Comment on above: ADA recommended refe rence rangeRandom Glucose Reference Range is dependent on time and content of last meal. Glucose of more than 200 mg/dL in a nonstressed, ambulatory subject supports the diagnosis of Diabetes Mellitus. Hematocrit Auto (Bld) [Volum e fraction]Ordered By: Estuardo Rojas on 06-06-2022 Hematocrit (Bld) [Volume fraction] 42.5 % 38.8-50.0 [facility] Hemoglobin [Mass/volume] in BloodOrdered By: Estuardo Rojas on 06-06-2022 Hemoglobin (Bld) [Mass/Vol] 13.8 g/dL 13.0-17.0 [facility] Leukocytes [#/volume] correc matthias for nucleated erythrocytes in Blood by Automated counOrdered By: Estuardo Rojas on 06-06-2022 WBC corrected for nucl RBC Auto (Bld) [#/Vol] 7.1 10*3/uL 4.1-10.5 [facility] Lymphocytes Auto (Bld) [#/Vo l]Ordered By: Estuardo Rojas on 06-06-2022 Lymphocytes (Bld) [#/Vol] 1.2 10*3/uL 1.00-4.8 [facility] Lymphocytes/100 WBC Auto (Bl d)Ordered By: Estuardo Rojas on 06-06-2022 Lymphocytes/100 WBC (Bld) 17.1 % . [facility] MCH Auto (RBC) [Entitic mass ]Ordered By: Estuardo Rojas on 06-06-2022 MCH (RBC) [Entitic mass] 32.0 pg 27.5-35.2 [facility] MCHC Auto (RBC) [Mass/Vol]Or dered By: Estuardo Rojas on 06-06-2022 MCHC (RBC) [Mass/Vol] 32.6 g/dL 32.5-35.6 [facility] MCV Auto (RBC) [Entitic vol] Ordered By: Estuardo Rojas on 06-06-2022 MCV (RBC) [Entitic vol] 98.1 fL 83.5-101 [facility] Monocytes Auto (Bld) [#/Vol] Ordered By: Estuardo Rojas on 06-06-2022 Monocytes (Bld) [#/Vol] 0.6 10*3/uL 0.0-0.8 [facility] Monocytes/100 WBC Auto (Bld) Ordered By: Estuardo Rojas on 06-06-2022 Monocytes/100 WBC (Bld) 8.7 % . [facility] Neutrophils Auto (Bld) [#/Vo l]Ordered By: Estuardo Rojas on 06-06-2022 Neutrophils (Bld) [#/Vol] 5.1 10*3/uL 1.8-7.7 [facility] Neutrophils/100 WBC Auto (Bl d)Ordered By: Estuardo Rojas on 06-06-2022 Neutrophils/100 WBC (Bld) 72.0 % . [facility] No Panel InformationOrdered By: Estuardo Rojas on 06-06-2022 Estimated GFR (CKD-EPI) > 60.0 mL/Min [facility] Creatinine Clearance (Chem N/A [facility] Nucleated erythrocytes [Pres ence] in Blood by Automated countOrdered By: Estuardo Rojas on 06-06-2022 Nucleated RBC Auto Ql (Bld) 0.1 /100{WBC} 0-0.5 [facility] Platelet mean volume Auto (B ld) [Entitic vol]Ordered By: Estuardo Rojas on 06-06-2022 Platelet mean volume (Bld) [Entitic vol] 11.2 fL 6.6-10.1 [facility] Platelets Auto (Bld) [#/Vol] Ordered By: Estuardo Rojas on 06-06-2022 Platelets (Bld) [#/Vol] 199 10*3/uL 150-450 [facility] Potassium [Moles/volume] in Serum or PlasmaOrdered By: Estuardo Rojas on 06-06-2022 Potassium [Moles/Vol] 4.8 mmol/L 3.5-5.1 [facility] Protein [Mass/volume] in Ser um or PlasmaOrdered By: Estuardo Rojas on 06-06-2022 Protein [Mass/Vol] 6.1 g/dL 6.4-8.9 [facility] RBC Auto (Bld) [#/Vol]Ordere d By: Estuardo Rojas on 06-06-2022 RBC (Bld) [#/Vol] 4.33 10*6/uL 3.90-5.60 [facility] Serum or plasma albumin/glob ulin mass ratioOrdered By: Estuardo Rjoas on 06-06-2022 Albumin/Globulin [Mass ratio] 1.9 {ratio} [facility] Serum or plasma anion gap de terminationOrdered By: Estuardo Rojas on 06-06-2022 Anion gap [Moles/Vol] 10.4 mmol/L 6.0-15.0 [facility] Sodium [Moles/volume] in Ser um or PlasmaOrdered By: Estuardo Westrow on 06-06-2022 Sodium [Moles/Vol] 141 mmol/L 136-145 [facility] Urea nitrogen [Mass/volume] in Serum or PlasmaOrdered By: Estuardo Westrow on 06-06-2022 Urea nitrogen [Mass/Vol] 19 mg/dL 7-25 [facility] WBC Auto (Bld) [#/Vol]Ordere d By: Estuardo Bob on 06-06-2022 WBC (Bld) [#/Vol] 7.1 10*3/uL 4.1-10.5 [facility] CBC AUTO DIFFon 11-16-2021 BASO # 0.0 103/ul Normal 0.0-0.1 [facility] Comment on above: Performed By: #### C BC ####[facility] [address] [place] [address]Dr. Sharath Aguilera Basophils/100 WBC (Bld) 0.4 % Normal 0.2-2.0 [facility] Comment on above: Performed By: #### C BC ####[facility] [address] [place] [address]DrMony Aguilera EO # 0.2 103/ul Normal 0.0-0.7 [facility] Comment on above: Performed By: #### C BC ####[facility] [address] [place] [address]Dr. Sharath Aguilera Eosinophils/100 WBC (Bld) 2.4 % Normal 0.9-7.0 [facility] Comment on above: Performed By: #### C BC ####[facility] [address] [place] [address]DrMony Aguilera Erythrocyte distribution width (RBC) [Ratio] 13.2 % Normal 11.0-15.0 [facility] Comment on above: Performed By: #### C BC ####[facility] [address] [place] [address]DrMony Aguilera Hematocrit (Bld) [Volume fraction] 42.0 % Normal 42.0-54.0 [facility] Comment on above: Performed By: #### C BC ####[facility] [address] [place] [id number] Sharath Aguilera Hemoglobin (Bld) [Mass/Vol] 13.9 g/dL Critically low 14.0-18.0 [facility] Comment on above: Performed By: #### C BC ####[facility] [address] [place] [id number] Pughlb Willy IG # 0.08 10e3/ul Critically high 0.00-0.03 [facility] Comment on above: Performed By: #### C BC ####[facility] [address] [place] [address]DrMony Pughlb Willy IG % 1.2 % Critically high 0.0-0.5 [facility] Comment on above: Performed By: #### C BC ####[facility] [address] [place] [address]DrMony Aguilera LYMPH # 1.0 103/ul Critically low 1.2-3.8 [facility] Comment on above: Performed By: #### C BC ####[facility] [address] [place] [address]DrMony Lexylb Aguilera Lymphocytes/100 WBC (Bld) 14.8 % Critically low 20.5-60.0 [facility] Comment on above: Performed By: #### C BC ####[facility] [address] [place] [address]DrMony Aguilera MANUAL DIFF REQ NO Normal [facility] Comment on above: Performed By: #### C BC ####[facility] [address] [place] [id number] Pughlb Willy MCH (RBC) [Entitic mass] 32.9 pg Normal 25.9-34.0 [facility] Comment on above: Performed By: #### C BC ####[facility] [address] [place] [id number] Aguilera MCHC (RBC) [Mass/Vol] 33.1 g/dL Normal 29.9-35.2 [facility] Comment on above: Performed By: #### C BC ####[facility] [address] [place] [address]DrMony Sharath Willy MCV (RBC) [Entitic vol] 99.5 fL Critically high 80.0-94 .0 [facility] Comment on above: Performed By: #### C BC ####[facility] [address] [place] [address]DrMony Pughlb Willy MONO # 0.7 103/ul Normal 0.3-0.8 [facility] Comment on above: Performed By: #### C BC ####[facility] [address] [place] [address]DrMony Aguilera Monocytes/100 WBC (Bld) 10.9 % Normal 1.7-12.0 [facility] Comment on above: Performed By: #### C BC ####[facility] [address] [place], [place] [address]DrMony Pughlb Willy NEUT # 4.7 103/ul Normal 1.4-6.5 [facility] Comment on above: Performed By: #### C BC ####[facility] [address] [place], [place] [address]DrMony Lexylb gAuilera Neutrophils/100 WBC (Bld) 70.3 % Normal 43.0-75.[address] [facility] Comment on above: Performed By: #### C BC ####[facility] [address] [place] [address]DrMony Aguilera Platelet mean volume (Bld) [Entitic vol] 9.6 fL Normal 9.5-13.5 [facility] Comment on above: Performed By: #### C BC ####[facility] [address] [place] [address]DrMony Aguilera PLT 198 103/ul Normal 150-[address] [facility] Comment on above: Performed By: #### C BC ####[facility] [address] [place] [id number] Aguilera RBC 4.22 106/ul Critically low 4.70-6.10 [facility] Comment on above: Performed By: #### C BC ####[facility] [address] [place] [address]Dr. Sharath Aguilera WBC 6.7 103/ul Normal 4.0-11.0 [facility] Comment on above: Performed By: #### C BC ####[facility] [address] [place] [address]Dr. Sharath Aguilera FERRITINon 11-16-2021 Ferritin [Mass/Vol] 491.0 ng/mL Critically high 26.0-388.0 [facility] Comment on above: Performed By: #### F ERR, FOL, FETIBC #### [facility] [address] [place] [address] [address] Sharath Aguilera FOLATEon 11-16-2021 FOLATE 23.60 ng/mL Normal 8.60-58.90 [facility] Comment on above: Performed By: #### F ERR, FOL, FETIBC #### [facility] [address] [place] [address] [address] Sharath Aguilera IRON AND TIBCon 11-16-2021 % SATURATION 41.6 % Normal [facility] Comment on above: Performed By: #### F ERR, FOL, FETIBC #### [facility] [address] [place] [address] [address] Sharath Aguilera Iron [Mass/Vol] 87.0 ug/dL Normal 65.0-175.0 [facility] Comment on above: Performed By: #### F ERR, FOL, FETIBC #### [facility] [address] [place] [address] [address] Sharath Aguilera TIBC DIRECT 209.0 ug/dL Critically low 250.0-450.0 [facility] Comment on above: Performed By: #### F ERR, FOL, FETIBC #### [facility] [address] [place] [address] [address] Sharath Aguilera Basophils Auto (Bld) [#/Vol] Ordered By: Madhuri Strickland on 11-13-2021 Basophils (Bld) [#/Vol] 0.1 10*3/uL 0.0-0.2 [facility] Basophils/100 WBC Auto (Bld) Ordered By: Madhuri Strickland on 11-13-2021 Basophils/100 WBC (Bld) 0.8 % . [facility] Blood hemoglobin measurement (mass/volume)Ordered By: Madhuri Strickland on 11-13-2021 Hemoglobin (Bld) [Mass/Vol] 14.6 g/dL 13.0-17.0 [facility] Blood leukocytes automated c ount (number/volume)Ordered By: Madhuri Strickland on 11-13-2021 WBC (Bld) [#/Vol] 6.4 10*3/uL 4.5-11.0 [facility] Body fluid albumin measureme nt (mass/volume)Ordered By: Madhuri Strickland on 11-13-2021 Albumin (Body fld) [Mass/Vol] 3.8 g/dL 3.2-5.5 [facility] Creatinine and Glomerular fi ltration rate.predicted panel (S/P/Bld)Ordered By: Madhuri Strickland on 11-13-2021 Creatinine [Mass/Vol] 1.11 mg/dL 0.64-1.27 [facility] Eosinophils Auto (Bld) [#/Vo l]Ordered By: Madhuri Strickland on 11-13-2021 Eosinophils (Bld) [#/Vol] 0.2 10*3/uL 0.0-0.45 [facility] Eosinophils/100 WBC Auto (Bl d)Ordered By: Madhuri Strickland on 11-13-2021 Eosinophils/100 WBC (Bld) 2.7 % . [facility] Erythrocyte distribution wid th Auto (RBC) [Ratio]Ordered By: Madhuri Strickland on 11-13-2021 Erythrocyte distribution width (RBC) [Ratio] 13.9 % 12.0-14.8 [facility] Erythrocyte sedimentation ra te by Photometric methodOrdered By: Madhuri Strickland on 11-13-2021 ESR Photometric method (Bld) [Velocity] 25 mm/hr 0-19 [facility] Estimated glomerular filtrat ion rate (GFR) non- AmericanOrdered By: Madhuri Strickland on 11-13-2021 GFR/1.73 sq M.predicted among non-blacks MDRD (S/P/Bld) [Vol rate/Area] > 60 mL/Min [facility] Globulin Calc (S) [Mass/Vol] Ordered By: Madhuri Strickland on 11-13-2021 Globulin (S) [Mass/Vol] 2.6 g/dL [facility] Hematocrit Auto (Bld) [Volum e fraction]Ordered By: Madhuri Strickland on 11-13-2021 Hematocrit (Bld) [Volume fraction] 43.5 % 38.8-50.0 [facility] Laboratory - Hematology and Cell countsOrdered By: Madhuri Strickland on 11-13-2021 Nucleated RBC/100 WBC (Bld) [Ratio] 0.0 % 0-0.5 [facility] Lymphocytes Auto (Bld) [#/Vo l]Ordered By: Madhuri Strickland on 11-13-2021 Lymphocytes (Bld) [#/Vol] 1.2 10*3/uL 1.00-4.8 [facility] Lymphocytes/100 WBC Auto (Bl d)Ordered By: Madhuri Strickland on 11-13-2021 Lymphocytes/100 WBC (Bld) 18.4 % . [facility] MCH Auto (RBC) [Entitic mass ]Ordered By: Madhuri Strickland on 11-13-2021 MCH (RBC) [Entitic mass] 33.2 pg 27.5-35.2 [facility] MCHC Auto (RBC) [Mass/Vol]Or dered By: Madhuri Strickland on 11-13-2021 MCHC (RBC) [Mass/Vol] 33.5 g/dL 32.5-35.6 [facility] MCV Auto (RBC) [Entitic vol] Ordered By: Madhuri Strickland on 11-13-2021 MCV (RBC) [Entitic vol] 99.0 fL 83.5-101 [facility] Monocytes Auto (Bld) [#/Vol] Ordered By: Madhuri Strickland on 11-13-2021 Monocytes (Bld) [#/Vol] 0.6 10*3/uL 0.0-0.8 [facility] Monocytes/100 WBC Auto (Bld) Ordered By: Madhuri Strickland on 11-13-2021 Monocytes/100 WBC (Bld) 9.8 % . [facility] Neutrophils Auto (Bld) [#/Vo l]Ordered By: Madhuri Strickland on 11-13-2021 Neutrophils (Bld) [#/Vol] 4.4 10*3/uL 1.8-7.7 [facility] Neutrophils/100 WBC Auto (Bl d)Ordered By: Madhuri Strickland on 11-13-2021 Neutrophils/100 WBC (Bld) 68.3 % . [facility] No Panel InformationOrdered By: Madhuri Strickland on 11-13-2021 Estimated GFR () > 60 mL/Min [facility] Comment on above: GFR estimated refere nce range: According to KDOQI guidelines, <60 ml/min/1.73m2 is sufficient to diagnose a patient with chronic kidney disease. Pharmacy Creatinine Clearance (Chem N/A [facility] Platelet mean volume Auto (B ld) [Entitic vol]Ordered By: Madhuri Strickland on 11-13-2021 Platelet mean volume (Bld) [Entitic vol] 9.9 fL 6.6-10.1 [facility] Platelets Auto (Bld) [#/Vol] Ordered By: Madhuri Strickland on 11-13-2021 Platelets (Bld) [#/Vol] 218 10*3/uL 150-450 [facility] Protein [Mass/volume] in Ser um or PlasmaOrdered By: Madhuri Strickland on 11-13-2021 Protein [Mass/Vol] 6.4 g/dL 6.1-7.9 [facility] RBC Auto (Bld) [#/Vol]Ordere d By: Madhuri Strickland on 11-13-2021 RBC (Bld) [#/Vol] 4.39 10*6/uL 3.90-5.60 [facility] Serum or plasma alanine aragon otransferase measurement without P-5'-P (enzymatic activiOrdered By: Madhuri Strickland on 11-13-2021 ALT No additional P-5'-P [Catalytic activity/Vol] 21 U/L 10-60 [facility] Serum or plasma albumin/glob ulin mass ratioOrdered By: Madhuri Strickland on 11-13-2021 Albumin/Globulin [Mass ratio] 1.5 {ratio} [facility] Serum or plasma alkaline dharmesh sphatase measurement (enzymatic activity/volume)Ordered By: Madhuri Strickland on 11-13-2021 ALP [Catalytic activity/Vol] 41 U/L 32-92 [facility] Serum or plasma anion gap de terminationOrdered By: Madhuri Strickland on 11-13-2021 Anion gap [Moles/Vol] 11.1 mmol/L 6.0-15.[address] [facility] Serum or plasma aspartate am inotransferase measurement (enzymatic activity/volume)Ordered By: Madhuri Strickland on 11-13-2021 AST [Catalytic activity/Vol] 20 U/L 10-42 [facility] Serum or plasma calcium vargas urement (mass/volume)Ordered By: Madhuri Strickland on 11-13-2021 Calcium [Mass/Vol] 9.0 mg/dL 8.2-10.2 [facility] Serum or plasma chloride kristie surement (moles/volume)Ordered By: Madhuri Strickland on 11-13-2021 Chloride [Moles/Vol] 104 mmol/L 95-114 [facility] Serum or plasma glucose vargas urement (mass/volume)Ordered By: Madhuri Strickland on 11-13-2021 Glucose [Mass/Vol] 89 mg/dL 70-100 [facility] Comment on above: ADA recommended refe rence range Random Glucose Reference Range is dependent on time and content of last meal. Glucose of more than 200 mg/dL in a nonstressed, ambulatory subject supports the diagnosis of Diabetes Mellitus. Serum or plasma potassium me asurement (moles/volume)Ordered By: Madhuri Strickland on 11-13-2021 Potassium [Moles/Vol] 4.5 mmol/L 3.5-5.1 [facility] Serum or plasma sodium measu rement (moles/volume)Ordered By: Madhuri Strickland on 11-13-2021 Sodium [Moles/Vol] 136 mmol/L 136-146 [facility] Serum or plasma total biliru bin measurement (mass/volume)Ordered By: Madhuri Strickland on 11-13-2021 Bilirubin [Mass/Vol] 1.0 mg/dL 0.3-1.2 [facility] Serum or plasma total carbon dioxide measurement (moles/volume)Ordered By: Madhuri Strickland on 11-13-2021 CO2 [Moles/Vol] 25.4 mmol/L 22.0-30.0 [facility] Serum or plasma urea nitroge n measurement (mass/volume)Ordered By: Madhuri Strickland on 11-13-2021 Urea nitrogen [Mass/Vol] 17 mg/dL 9-23 [facility] Basophils Auto (Bld) [#/Vol] Ordered By: Madhuri Strickland on 08-15-2021 Basophils (Bld) [#/Vol] 0.1 10*3/uL 0.0-0.2 [facility] Basophils/100 WBC Auto (Bld) Ordered By: Madhuri Strickland on 08-15-2021 Basophils/100 WBC (Bld) 1.0 % [facility] Blood hemoglobin measurement (mass/volume)Ordered By: Madhuri Strickland on 08-15-2021 Hemoglobin (Bld) [Mass/Vol] 13.5 g/dL 13.0-17.0 [facility] Blood leukocytes automated c ount (number/volume)Ordered By: Madhuri Strickland on 08-15-2021 WBC (Bld) [#/Vol] 5.5 10*3/uL 4.5-11.0 [facility] Body fluid albumin measureme nt (mass/volume)Ordered By: Madhuri Strickland on 08-15-2021 Albumin (Body fld) [Mass/Vol] 3.5 g/dL 3.2-5.5 [facility] Creatinine and Glomerular fi ltration rate.predicted panel (S/P/Bld)Ordered By: Madhuri Strickland on 08-15-2021 Creatinine [Mass/Vol] 1.08 mg/dL 0.64-1.27 [facility] Eosinophils Auto (Bld) [#/Vo l]Ordered By: Madhuri Strickland on 08-15-2021 Eosinophils (Bld) [#/Vol] 0.1 10*3/uL 0.0-0.45 [facility] Eosinophils/100 WBC Auto (Bl d)Ordered By: Madhuri Strickland on 08-15-2021 Eosinophils/100 WBC (Bld) 1.3 % [facility] Erythrocyte distribution wid th Auto (RBC) [Ratio]Ordered By: Madhuri Strickland on 08-15-2021 Erythrocyte distribution width (RBC) [Ratio] 13.7 % 12.0-14.8 [facility] Erythrocyte sedimentation ra te by Photometric methodOrdered By: Madhuri Strickland on 08-15-2021 ESR Photometric method (d) [Velocity] 20 mm/hr 0-19 [facility] Estimated glomerular filtrat ion rate (GFR) non- AmericanOrdered By: Madhuri Strickland on 08-15-2021 GFR/1.73 sq M.predicted among non-blacks MDRD (S/P/Bld) [Vol rate/Area] > 60 mL/Min [facility] Globulin Calc (S) [Mass/Vol] Ordered By: Madhuri Strickland on 08-15-2021 Globulin (S) [Mass/Vol] 2.3 g/dL [facility] Hematocrit Auto (Bld) [Volum e fraction]Ordered By: Madhuri Strickland on 08-15-2021 Hematocrit (Bld) [Volume fraction] 40.3 % 38.8-50.0 [facility] Laboratory - Hematology and Cell countsOrdered By: Madhuri Strickland on 08-15-2021 Nucleated RBC/100 WBC (Bld) [Ratio] 0.1 % 0-0.5 [facility] Lymphocytes Auto (Bld) [#/Vo l]Ordered By: Madhuri Strickland on 08-15-2021 Lymphocytes (Bld) [#/Vol] 1.0 10*3/uL 1.00-4.8 [facility] Lymphocytes/100 WBC Auto (Bl d)Ordered By: Madhuri Strickland on 08-15-2021 Lymphocytes/100 WBC (Bld) 18.6 % [facility] MCH Auto (RBC) [Entitic mass ]Ordered By: Madhuri Strickland on 08-15-2021 MCH (RBC) [Entitic mass] 32.8 pg 27.5-35.2 [facility] MCHC Auto (RBC) [Mass/Vol]Or dered By: Madhuri Strickland on 08-15-2021 MCHC (RBC) [Mass/Vol] 33.5 g/dL 32.5-35.6 [facility] MCV Auto (RBC) [Entitic vol] Ordered By: Madhuri Strickland on 08-15-2021 MCV (RBC) [Entitic vol] 97.9 fL 83.5-101 [facility] Monocytes Auto (Bld) [#/Vol] Ordered By: Madhuri Strickland on 08-15-2021 Monocytes (Bld) [#/Vol] 0.4 10*3/uL 0.0-0.8 [facility] Monocytes/100 WBC Auto (Bld) Ordered By: Madhuri Strickland on 08-15-2021 Monocytes/100 WBC (Bld) 7.2 % [facility] Neutrophils Auto (Bld) [#/Vo l]Ordered By: Madhuri Strickland on 08-15-2021 Neutrophils (Bld) [#/Vol] 4.0 10*3/uL 1.8-7.7 [facility] Neutrophils/100 WBC Auto (Bl d)Ordered By: Madhuri Strickland on 08-15-2021 Neutrophils/100 WBC (Bld) 71.9 % [facility] No Panel InformationOrdered By: Madhuri Strickland on 08-15-2021 Estimated GFR () > 60 mL/Min [facility] Comment on above: GFR estimated refere nce range: According to KDOQI guidelines, <60 ml/min/1.73m2 is sufficient to diagnose a patient with chronic kidney disease. Pharmacy Creatinine Clearance (Chem N/A [facility] Platelet mean volume Auto (B ld) [Entitic vol]Ordered By: Madhuri Strickland on 08-15-2021 Platelet mean volume (Bld) [Entitic vol] 9.8 fL 6.6-10.1 [facility] Platelets Auto (Bld) [#/Vol] Ordered By: Madhuri Strickland on 08-15-2021 Platelets (Bld) [#/Vol] 198 10*3/uL 150-450 [facility] Protein [Mass/volume] in Ser um or PlasmaOrdered By: Madhuri Strickland on 08-15-2021 Protein [Mass/Vol] 5.8 g/dL 6.1-7.9 [facility] RBC Auto (Bld) [#/Vol]Ordere d By: Madhuri Strickland on 08-15-2021 RBC (Bld) [#/Vol] 4.12 10*6/uL 3.90-5.60 [facility] Serum or plasma alanine aragon otransferase measurement without P-5'-P (enzymatic activiOrdered By: Madhuri Strickland on 08-15-2021 ALT No additional P-5'-P [Catalytic activity/Vol] 18 U/L 10-60 [facility] Serum or plasma albumin/glob ulin mass ratioOrdered By: Madhuri Strickland on 08-15-2021 Albumin/Globulin [Mass ratio] 1.5 {ratio} [facility] Serum or plasma alkaline dharmesh sphatase measurement (enzymatic activity/volume)Ordered By: Madhuri Strickland on 08-15-2021 ALP [Catalytic activity/Vol] 42 U/L 32-92 [facility] Serum or plasma aspartate am inotransferase measurement (enzymatic activity/volume)Ordered By: Madhuri Strickland on 08-15-2021 AST [Catalytic activity/Vol] 19 U/L 10-42 [facility] Serum or plasma calcium vargas urement (mass/volume)Ordered By: Madhuri Strickland on 08-15-2021 Calcium [Mass/Vol] 8.8 mg/dL 8.2-10.2 [facility] Serum or plasma chloride kristie surement (moles/volume)Ordered By: Madhuri Strickland on 08-15-2021 Chloride [Moles/Vol] 103 mmol/L 95-114 [facility] Serum or plasma glucose vargas urement (mass/volume)Ordered By: Madhuri Strickland on 08-15-2021 Glucose [Mass/Vol] 124 mg/dL 70-100 [facility] Comment on above: ADA recommended refe rence range Random Glucose Reference Range is dependent on time and content of last meal. Glucose of more than 200 mg/dL in a nonstressed, ambulatory subject supports the diagnosis of Diabetes Mellitus. Serum or plasma potassium me asurement (moles/volume)Ordered By: Madhuri Strickland on 08-15-2021 Potassium [Moles/Vol] 4.3 mmol/L 3.5-5.1 [facility] Serum or plasma sodium measu rement (moles/volume)Ordered By: Madhuri Strickland on 08-15-2021 Sodium [Moles/Vol] 137 mmol/L 136-146 [facility] Serum or plasma total biliru bin measurement (mass/volume)Ordered By: Madhuri Strickland on 08-15-2021 Bilirubin [Mass/Vol] 0.5 mg/dL 0.3-1.2 [facility] Serum or plasma total carbon dioxide measurement (moles/volume)Ordered By: Madhuri Strickland on 08-15-2021 CO2 [Moles/Vol] 24.3 mmol/L 22.0-30.0 [facility] Serum or plasma urea nitroge n measurement (mass/volume)Ordered By: Madhuri Strickland on 08-15-2021 Urea nitrogen [Mass/Vol] 18 mg/dL 9- [facility] CBC AUTO DIFFon 07-26-2021 BASO # 0.0 103/ul Normal 0.0-0.1 [facility] Comment on above: Performed By: #### C BC #### [facility] [address] [address] [address] Sharath Aguilera Basophils/100 WBC (Bld) 0.3 % Normal 0.2-2.0 [facility] Comment on above: Performed By: #### C BC #### [facility] [address] [place] [address] Dr. Sharath Aguilera EO # 0.1 103/ul Normal 0.0-0.[address] [facility] Comment on above: Performed By: #### C BC #### [facility] [address] [place] [address] Dr. Sharath Aguilera Eosinophils/100 WBC (Bld) 1.7 % Normal 0.9-7.[address] [facility] Comment on above: Performed By: #### C BC #### [facility] [address] [place] [address] Dr. Sharath Aguilera Erythrocyte distribution width (RBC) [Ratio] 13.1 % Normal 11.0-15.0 [facility] Comment on above: Performed By: #### C BC #### [facility] [address] [place] [address] Dr. Sharath Aguilera Hematocrit (Bld) [Volume fraction] 43.0 % Normal 42.0-54.0 [facility] Comment on above: Performed By: #### C BC #### [facility] [address] [place] [address] Dr. Sharath Aguilera Hemoglobin (Bld) [Mass/Vol] 13.9 g/dL Critically low 14.0-18.0 [facility] Comment on above: Performed By: #### C BC #### [facility] [address] [place] [address] Dr. Sharath Aguilera IG # 0.03 10e3/ul Normal 0.00-0.[address] [facility] Comment on above: Performed By: #### C BC #### [facility] [address] [place] [address] Dr. Sharath Aguilera IG % 0.5 % Normal 0.0-0.[address] [facility] Comment on above: Performed By: #### C BC #### [facility] [address] [place] [address] Dr. Sharath Aguilera LYMPH # 1.2 103/ul Normal 1.2-3.[address] [facility] Comment on above: Performed By: #### C BC #### [facility] [address] [address] [address] Sharath Aguilera Lymphocytes/100 WBC (Bld) 18.8 % Critically low 20.5-60.0 [facility] Comment on above: Performed By: #### C BC #### [facility] [address] [place] [address] Dr. Sharath Aguilera MANUAL DIFF REQ NO Normal [facility] Comment on above: Performed By: #### C BC #### [facility] [address] [place] [address] Dr. Sharath Aguilera MCH (RBC) [Entitic mass] 32.8 pg Normal 25.9-34.0 [facility] Comment on above: Performed By: #### C BC #### [facility] [address] [place] [address] Dr. Sharath Aguilera MCHC (RBC) [Mass/Vol] 32.3 g/dL Normal 29.9-35.2 [facility] Comment on above: Performed By: #### C BC #### [facility] [address] [place] [address] Dr. Sharath Aguilera MCV (RBC) [Entitic vol] 101.4 fL Critically high 80.0-94 .0 [facility] Comment on above: Performed By: #### C BC #### [facility] [address] [place] [address] Dr. Sharath Aguilera MONO # 0.6 103/ul Normal 0.3-0.8 [facility] Comment on above: Performed By: #### C BC #### [facility] [address] [place] [address] Dr. Sharath Aguilera Monocytes/100 WBC (Bld) 9.5 % Normal 1.7-12.0 [facility] Comment on above: Performed By: #### C BC #### [facility] [address] [place] [address] Dr. Sharath Aguilera NEUT # 4.5 103/ul Normal 1.4-6.5 [facility] Comment on above: Performed By: #### C BC #### [facility] [address] [address] [address] Sharath Aguilera Neutrophils/100 WBC (Bld) 69.2 % Normal 43.0-75.0 [facility] Comment on above: Performed By: #### C BC #### [facility] [address] [place] [address] Dr. Sharath Aguilera Platelet mean volume (Bld) [Entitic vol] 9.7 fL Normal 9.5-13.5 [facility] Comment on above: Performed By: #### C BC #### [facility] [address] [place] [address] Dr. Sharath Aguilera PLT 189 103/ul Normal 150-450 [facility] Comment on above: Performed By: #### C BC #### [facility] [address] [place] [address] Dr. Sharath Aguilera RBC 4.24 106/ul Critically low 4.70-6.10 [facility] Comment on above: Performed By: #### C BC #### [facility] [address] [place] [address] Dr. Sharath Aguilera WBC 6.5 103/ul Normal 4.0-11.[address] [facility] Comment on above: Performed By: #### C BC #### [facility] [address] [place] [address] LUNG CANCER SCREENINGon 0 07-26-2021 CT LUNG CANCER SCREENING EXAMINATION: CT LUNG CANCER SCREENING HISTORY: Tobacco dependence caused by cigarettes COMPARISON: CT chest 07/06/2020 TECHNIQUE: Axial, Coronal, and Sagittal images were created without the administration of IV contrast material. Dose reduction techniques were achieved by using automated exposure control and/or adjustment of mA and/or kV according to patient size and/or use of iterative reconstruction technique. FINDINGS: LUNGS: No suspicious pulmonary nodules, acute infiltrates, or significant chronic interstitial changes. PLEURA: No mass, effusion, or pneumothorax. VASCULATURE: No abnormality. SYDNIE: No mass or pathologic adenopathy. MEDIASTINUM: No mass or pathologic adenopathy. CARDIAC: No enlargement, pericardial thickening, or significant calcification. AORTA: No aneurysm or dissection. CHEST WALL: No mass or axillary adenopathy BONES: No bone lesion or fracture. LIMITED ABDOMEN: No suspicious findings. Limited images of the upper abdomen. OTHER: Negative. IMPRESSION: 1. LUNG SCREENING: Lung-RADS Category 1 Negative. No nodules and definitely benign nodules. Continue annual screening with LDCT in 12 months. Electronically authenticated by: LATHA CHRISTIAN Date: 2021-07-26 16:23 Normal [facility] GLYCOHEMOGLOBIN A1Con 2021 ADA RECOMMENDATION SEE BELOW Normal [facility] Comment on above: Result Comment: ADA RECOMMENDED LIMIT 4.0 - 6.0 ADA THERAPEUTIC TARGET < 7.0 ACTION SUGGESTED > 7.0 Performed By: #### A 1C #### [facility] [address] [place] [address] Dr. Sharath Aguilera Glucose [Mass/Vol] 105 mg/dL Normal [facility] Comment on above: Performed By: #### A 1C #### [facility] [address] [place] [address] Dr. Sharath Aguilera HbA1c (Bld) [Mass fraction] 5.3 % Normal 4.5-6.2 [facility] Comment on above: Performed By: #### A 1C #### [facility] [address] [place] [address] Dr. Sharath Aguilera LIPID PROFILEon 07-26-2021 CHOL-HDL RATIO NORM SEE BELOW Normal [facility] Comment on above: Result Comment: 3.3 - 4.4 LOW RISK 4.4 - 7.1 AVERAGE RISK 7.1 - 11.0 MODERATE RISK >11.0 HIGH RISK Performed By: #### B MP, LIPID #### [facility] [address] [place] [address] Dr. Sharath Aguilera Cholesterol [Mass/Vol] 168 mg/dL Normal <=200 [facility] Comment on above: Performed By: #### B MP, LIPID #### [facility] [address] [place] [address] Dr. Sharath Aguilera Cholesterol in HDL [Mass/Vol] 53 mg/dL Normal 40-60 [facility] Comment on above: Performed By: #### B MP, LIPID #### [facility] [address] [place] [address] Dr. Sharath Aguilera Cholesterol in LDL [Mass/Vol] 101.2 mg/dL Normal [facility] Comment on above: Performed By: #### B MP, LIPID #### [facility] [address] [address] [address] Sharath Aguilera Cholesterol.total/Mary Carmen sterol in HDL [Mass ratio] 3.2 {ratio} Normal [facility] Comment on above: Performed By: #### B MP, LIPID #### [facility] [address] [address] [address] Sharath Aguilera HDL NORMAL > or = 60 mg/dl - LO W CARDIOVASCULAR RISK <40 mg/dl - HIGH CARDIOVASCULAR RISK Normal [facility] Comment on above: Performed By: #### B MP, LIPID #### [facility] [address] [place] [address] Dr. Sharath Aguilera LDL CALC NORMAL SEE BELOW Normal [facility] Comment on above: Result Comment: <100 mg/dl OPTIMAL 100 - 129 mg/dl NEAR OR ABOVE OPTIMAL 130 - 159 mg/dl BORDERLINE HIGH 160 - 189 mg/dl HIGH >190 mg/dl VERY HIGH Performed By: #### B MP, LIPID #### [facility] [address] [address] [address] Sharath Aguilera Triglyceride [Mass/Vol] 69 mg/dL Normal <=150 [facility] Comment on above: Performed By: #### B MP, LIPID #### [facility] [address] [address] [address] Sharath Aguilera VLDL CALC 13.8 mg/dL Normal [facility] Comment on above: Performed By: #### B MP, LIPID #### [facility] [address] [address] [address] Sharath Aguilera PROF CHEM 8 (BAS METB)on Anion gap [Moles/Vol] 13.4 mmol/L Normal [facility] Comment on above: Performed By: #### B MP, LIPID #### [facility] [address] [address] [address] Sharath Aguilera Calcium [Mass/Vol] 8.7 mg/dL Normal 8.5-10.1 [facility] Comment on above: Performed By: #### B MP, LIPID #### [facility] [address] [address] [address] Sharath Aguilera Chloride [Moles/Vol] 105 mmol/L Normal 98-107 [facility] Comment on above: Performed By: #### B MP, LIPID #### [facility] [address] [address] [address] Sharath Aguilera CO2 [Moles/Vol] 27.2 mmol/L Normal 21.0-32.0 [facility] Comment on above: Performed By: #### B MP, LIPID #### [facility] [address] [address] [address] Sharath Aguilera Creatinine [Mass/Vol] 1.08 mg/dL Normal 0.70-1.30 [facility] Comment on above: Performed By: #### B MP, LIPID #### [facility] [address] [address] [address] Sharath Aguilera EGFR-AF NAURUAN >60 Normal >=60 [facility] Comment on above: Performed By: #### B MP, LIPID #### [facility] [address] [address] [address] Sharath Aguilera EGFR-NON AF NAURUAN >60 Normal >=60 [facility] Comment on above: Performed By: #### B MP, LIPID #### [facility] [address] [address] [address] Sharath Aguilera Glucose [Mass/Vol] 120 mg/dL Critically high 74-106 [facility] Comment on above: Performed By: #### B MP, LIPID #### [facility] [address] [address] [address] Sharath Aguilera Potassium [Moles/Vol] 4.6 mmol/L Normal 3.5-5.1 [facility] Comment on above: Performed By: #### B MP, LIPID #### [facility] [address] [address] [address] Sharath Aguilera Sodium [Moles/Vol] 141 mmol/L Normal 136-145 [facility] Comment on above: Performed By: #### B MP, LIPID #### [facility] [address] [place], [place] [address] Dr. Sharath Aguilera Urea nitrogen [Mass/Vol] 25.0 mg/dL Critically high 7.0-18.0 [facility] Comment on above: Performed By: #### B MP, LIPID #### [facility] [address] [place], [place] [address] Dr. Sharath Aguilera Urea nitrogen/Creatinine [Mass ratio] 23.1 mg/mg Normal [facility] Comment on above: Performed By: #### B MP, LIPID #### [facility] [address] [place], [place] [address] Dr. Sharath Aguilera Basophils Auto (Bld) [#/Vol] Ordered By: Estuardo Rojas on 05-14-2021 Basophils (Bld) [#/Vol] 0.0 10*3/uL 0.0-0.2 [facility] Basophils/100 WBC Auto (Bld) Ordered By: Estuardo Rojas on 05-14-2021 Basophils/100 WBC (Bld) 0.6 % [facility] Blood hemoglobin measurement (mass/volume)Ordered By: Estuardo Rojas on 05-14-2021 Hemoglobin (Bld) [Mass/Vol] 14.0 g/dL 13.0-17.0 [facility] Blood leukocytes automated c ount (number/volume)Ordered By: Estuardo Rojas on 05-14-2021 WBC (Bld) [#/Vol] 7.4 10*3/uL 4.5-11.0 [facility] Body fluid albumin measureme nt (mass/volume)Ordered By: Estuardo Rojas on 05-14-2021 Albumin (Body fld) [Mass/Vol] 3.8 g/dL 3.2-5.5 [facility] Creatinine and Glomerular fi ltration rate.predicted panel (S/P/Bld)Ordered By: Estuardo Rojas on 05-14-2021 Creatinine [Mass/Vol] 1.08 mg/dL 0.64-1.27 [facility] Eosinophils Auto (Bld) [#/Vo l]Ordered By: Estuardo Rojas on 05-14-2021 Eosinophils (Bld) [#/Vol] 0.1 10*3/uL 0.0-0.45 [facility] Eosinophils/100 WBC Auto (Bl d)Ordered By: Estuardo Rojas on 05-14-2021 Eosinophils/100 WBC (Bld) 2.0 % [facility] Erythrocyte distribution wid th Auto (RBC) [Ratio]Ordered By: Estuardo Rojas on 05-14-2021 Erythrocyte distribution width (RBC) [Ratio] 14.2 % 12.0-14.8 [facility] Erythrocyte sedimentation ra te by Photometric methodOrdered By: Estuardo Rojas on 05-14-2021 ESR Photometric method (d) [Velocity] 26 mm/hr 0-19 [facility] Estimated glomerular filtrat ion rate (GFR) non- AmericanOrdered By: Estuardo Rojas on 05-14-2021 GFR/1.73 sq M.predicted among non-blacks MDRD (S/P/Bld) [Vol rate/Area] > 60 mL/Min [facility] Globulin Calc (S) [Mass/Vol] Ordered By: Estuardo Rojas on 05-14-2021 Globulin (S) [Mass/Vol] 2.6 g/dL [facility] Hematocrit Auto (Bld) [Volum e fraction]Ordered By: Estuardo oRjas on 05-14-2021 Hematocrit (Bld) [Volume fraction] 41.2 % 38.8-50.0 [facility] Laboratory - Hematology and Cell countsOrdered By: Estuardo Rojas on 05-14-2021 Nucleated RBC/100 WBC (Bld) [Ratio] 0.1 % 0-0.5 [facility] Lymphocytes Auto (Bld) [#/Vo l]Ordered By: Estuardo Rojas on 05-14-2021 Lymphocytes (Bld) [#/Vol] 1.4 10*3/uL 1.00-4.8 [facility] Lymphocytes/100 WBC Auto (Bl d)Ordered By: Estuardo Rojas on 05-14-2021 Lymphocytes/100 WBC (Bld) 18.8 % [facility] MCH Auto (RBC) [Entitic mass ]Ordered By: Estuardo Rojas on 05-14-2021 MCH (RBC) [Entitic mass] 33.4 pg 27.5-35.2 [facility] MCHC Auto (RBC) [Mass/Vol]Or dered By: Estuardo Rojas on 05-14-2021 MCHC (RBC) [Mass/Vol] 33.9 g/dL 32.5-35.6 [facility] MCV Auto (RBC) [Entitic vol] Ordered By: Estuardo Rojas on 05-14-2021 MCV (RBC) [Entitic vol] 98.6 fL 83.5-101 [facility] Monocytes Auto (Bld) [#/Vol] Ordered By: Estuardo Rojas on 05-14-2021 Monocytes (Bld) [#/Vol] 0.6 10*3/uL 0.0-0.8 [facility] Monocytes/100 WBC Auto (Bld) Ordered By: Estuardo Rojas on 05-14-2021 Monocytes/100 WBC (Bld) 7.7 % [facility] Neutrophils Auto (Bld) [#/Vo l]Ordered By: Estuardo Rojas on 05-14-2021 Neutrophils (Bld) [#/Vol] 5.2 10*3/uL 1.8-7.7 [facility] Neutrophils/100 WBC Auto (Bl d)Ordered By: Estuardo Rojas on 05-14-2021 Neutrophils/100 WBC (Bld) 70.9 % [facility] No Panel InformationOrdered By: Estuardo Rojas on 05-14-2021 Estimated GFR () > 60 mL/Min [facility] Comment on above: GFR estimated refere nce range: According to KDOQI guidelines, <60 ml/min/1.73m2 is sufficient to diagnose a patient with chronic kidney disease. Pharmacy Creatinine Clearance (Chem N/A [facility] Platelet mean volume Auto (B ld) [Entitic vol]Ordered By: Estuardo Rojas on 05-14-2021 Platelet mean volume (Bld) [Entitic vol] 9.5 fL 6.6-10.1 [facility] Platelets Auto (Bld) [#/Vol] Ordered By: Estuardo Rojas on 05-14-2021 Platelets (Bld) [#/Vol] 244 10*3/uL 150-450 [facility] Protein [Mass/volume] in Ser um or PlasmaOrdered By: Estuardo Rojas on 05-14-2021 Protein [Mass/Vol] 6.4 g/dL 6.1-7.9 [facility] RBC Auto (Bld) [#/Vol]Ordere d By: Estuardo Rojas on 05-14-2021 RBC (Bld) [#/Vol] 4.18 10*6/uL 3.90-5.60 [facility] Serum or plasma alanine aragon otransferase measurement without P-5'-P (enzymatic activiOrdered By: Estuardo Rojas on 05-14-2021 ALT No additional P-5'-P [Catalytic activity/Vol] 19 U/L 10-60 [facility] Serum or plasma albumin/glob ulin mass ratioOrdered By: Estuardo Rojas on 05-14-2021 Albumin/Globulin [Mass ratio] 1.5 {ratio} [facility] Serum or plasma alkaline dharmesh sphatase measurement (enzymatic activity/volume)Ordered By: Estuardo Rojas on 05-14-2021 ALP [Catalytic activity/Vol] 42 U/L 32-92 [facility] Serum or plasma aspartate am inotransferase measurement (enzymatic activity/volume)Ordered By: Estuardo Rojas on 05-14-2021 AST [Catalytic activity/Vol] 18 U/L 10-42 [facility] Serum or plasma calcium vargas urement (mass/volume)Ordered By: Estuardo Rojas on 05-14-2021 Calcium [Mass/Vol] 9.0 mg/dL 8.2-10.2 [facility] Serum or plasma chloride kristie surement (moles/volume)Ordered By: Estuardo Rojas on 05-14-2021 Chloride [Moles/Vol] 102 mmol/L 95-114 [facility] Serum or plasma glucose vargas urement (mass/volume)Ordered By: Estuardo Rojas on 05-14-2021 Glucose [Mass/Vol] 119 mg/dL 70-100 [facility] Comment on above: ADA recommended refe rence rangeRandom Glucose Reference Range is dependent on time and content of last meal. Glucose of more than 200 mg/dL in a nonstressed, ambulatory subject supports the diagnosis of Diabetes Mellitus. Serum or plasma potassium me asurement (moles/volume)Ordered By: Estuardo Rojas on 05-14-2021 Potassium [Moles/Vol] 4.6 mmol/L 3.5-5.1 [facility] Serum or plasma sodium measu rement (moles/volume)Ordered By: Estuardo Rojas on 05-14-2021 Sodium [Moles/Vol] 138 mmol/L 136-146 [facility] Serum or plasma total biliru bin measurement (mass/volume)Ordered By: Estuardo Rojas on 05-14-2021 Bilirubin [Mass/Vol] 0.7 mg/dL 0.3-1.2 [facility] Serum or plasma total carbon dioxide measurement (moles/volume)Ordered By: Estuardo Rojas on 05-14-2021 CO2 [Moles/Vol] 25.3 mmol/L 22.0-30.0 [facility] Serum or plasma urea nitroge n measurement (mass/volume)Ordered By: Estuardo Rojas on 05-14-2021 Urea nitrogen [Mass/Vol] 16 mg/dL 9-23 [facility] CBC AUTO DIFFon 12-25-2020 BASO # 0.0 103/ul Normal 0.0-0.1 [facility] Comment on above: Performed By: #### C BC #### [facility] [address] [address] [address] Sharath Aguilera Basophils/100 WBC (Bld) 0.4 % Normal 0.2-2.0 [facility] Comment on above: Performed By: #### C BC #### [facility] [address] [address] [address] Sharath Aguilera EO # 0.1 103/ul Normal 0.0-0.7 [facility] Comment on above: Performed By: #### C BC #### [facility] [address] [place] [address] Dr. Sharath Aguilera Eosinophils/100 WBC (Bld) 1.2 % Normal 0.9-7.0 [facility] Comment on above: Performed By: #### C BC #### [facility] [address] [place] [address] Dr. Sharath Aguilera Erythrocyte distribution width (RBC) [Ratio] 13.0 % Normal 11.0-15.0 [facility] Comment on above: Performed By: #### C BC #### [facility] [address] [place] [address] Dr. Sharath Aguilera Hematocrit (Bld) [Volume fraction] 40.7 % Critically low 42.0-54.0 [facility] Comment on above: Performed By: #### C BC #### [facility] [address] [place] [address] Dr. Sharath Aguilera Hemoglobin (Bld) [Mass/Vol] 13.4 g/dL Critically low 14.0-18.0 [facility] Comment on above: Performed By: #### C BC #### [facility] [address] [place] [address] Dr. Sharath Aguilera IG # 0.04 10e3/ul Critically high 0.00-0.03 [facility] Comment on above: Performed By: #### C BC #### [facility] [address] [place] [address] Dr. Sharath Aguilera IG % 0.5 % Normal 0.0-0.5 [facility] Comment on above: Performed By: #### C BC #### [facility] [address] [place] [address] Dr. Sharath Aguilera LYMPH # 1.1 103/ul Critically low 1.2-3.8 [facility] Comment on above: Performed By: #### C BC #### [facility] [address] [place] [address] Dr. Sharath Aguilera Lymphocytes/100 WBC (Bld) 14.5 % Critically low 20.5-60.0 [facility] Comment on above: Performed By: #### C BC #### [facility] [address] [place] [address] Dr. Sharath Aguilera MANUAL DIFF REQ NO Normal [facility] Comment on above: Performed By: #### C BC #### [facility] [address] [address] [address] Sharath Aguilera MCH (RBC) [Entitic mass] 32.7 pg Normal 25.9-34.[address] [facility] Comment on above: Performed By: #### C BC #### [facility] [address] [place] [address] Dr. Sharath Aguilera MCHC (RBC) [Mass/Vol] 32.9 g/dL Normal 29.9-35.[address] [facility] Comment on above: Performed By: #### C BC #### [facility] [address] [place] [address] Dr. Sharath Aguilera MCV (RBC) [Entitic vol] 99.3 fL Critically high 80.0-94 .0 [facility] Comment on above: Performed By: #### C BC #### [facility] [address] [place] [address] Dr. Sharath Aguilera MONO # 1.0 103/ul Critically high 0.3-0.8 [facility] Comment on above: Performed By: #### C BC #### [facility] [address] [place] [address] Dr. Sharath Aguilera Monocytes/100 WBC (Bld) 12.7 % Critically high 1.7-12. 0 [facility] Comment on above: Performed By: #### C BC #### [facility] [address] [place] [address] Dr. Sharath Aguilera NEUT # 5.4 103/ul Normal 1.4-6.[address] [facility] Comment on above: Performed By: #### C BC #### [facility] [address] [place] [address] Dr. Sharath Aguilera Neutrophils/100 WBC (Bld) 70.7 % Normal 43.0-75.[address] [facility] Comment on above: Performed By: #### C BC #### [facility] [address] [place] [address] Dr. Sharath Aguilera Platelet mean volume (Bld) [Entitic vol] 10.1 fL Normal 9.5-13.[address] [facility] Comment on above: Performed By: #### C BC #### [facility] [address] [place], [place] [address] Dr. Sharath Aguilera PLT 205 103/ul Normal 150-[address] [facility] Comment on above: Performed By: #### C BC #### [facility] [address] [place], [place] [address] Dr. Sharath Aguilera RBC 4.10 106/ul Critically low 4.70-6.10 [facility] Comment on above: Performed By: #### C BC #### [facility] [address] [place], [place] [address] Dr. Sharath Aguilera WBC 7.6 103/ul Normal 4.0-11.0 [facility] Comment on above: Performed By: #### C BC #### [facility] [id number] Sharath Aguilera NM PET/CT SKULL-THIGH INITon 02-27-2018 NM PET/CT SKULL-THIGH INIT * * *Final Report* * *DATE OF EXAM: Feb 27 2018 2:40PM NRN [id number] - NM PET/CT SKULL-THIGH INIT / REASON: Multiple nodules of lung, hx of MGUS * * * * Physician Interpretation * * * *RESULT: FDG PET/CT SCAN:CLINICAL HISTORY: Lung noduleINDICATION: Initial treatment strategy.TECHNIQUE: 10.3 mCi 18-FDG IV, followed about 1 hour later by PET imaging from base of the skull to proximal femur. Non contrast CT was performed for attenuation correction and anatomic localization purposes.CT Dose-Length Product (DLP): 260 mGy*cm.CT Dose Reduction Employed: YesBLOOD GLUCOSE: 172 mg/dL Correlation: CT chest dated 02/13/2018RESULT:NECK: Likely physiological activity in the oral cavity, tonsillar regions, salivary glands, larynx.No suspicious hypermetabolic foci.There is no hypermetabolic cervical lymphadenopathy.CHEST: There are aortic and coronary calcifications.There is no hypermetabolic hilar or mediastinal lymphadenopathy.Few scattered axillary lymph nodes likely reactive.There is no hypermetabolic axillary lymphadenopathy.Scatter ed bilateral opacities not associated with significant FDG activity.A nodular/groundglass opacity in the right anterior midlung region, measuring about 0.6 x 0.8 cm (max SUV 0.8), a posterior medial left lower nodular opacity measuring about 0.5 x 0.6 cm (max SUV 1).There are no hypermetabolic foci in the lungs.ABDOMEN AND PELVIS: The liver is slightly heterogeneous activity but no focal lesions are identified. There are no hypermetabolic foci in the liver, spleen, adrenals.There is no hypermetabolic abdominal or pelvic lymphadenopathy.Physiol ogic activity is noted in the liver, renal collecting system, bladder and bowel.Diffuse activity in several colonic and bowel loops in the mid and lower abdomen can be physiological or inflammatory.SKELETON: Mild heterogeneous marrow activity no focal lesions identified. There are no hypermetabolic osseous lesions. --------IMPRESSION:1. Neck: No suspicious hypermetabolic foci2. Chest: No hypermetabolic foci in the lungs.Scattered bilateral nodular opacities not associated with significant FDG activity.No hypermetabolic lymphadenopathy.3. Abdomen and pelvis: No suspicious hypermetabolic foci4. Skeleton: No hypermetabolic osseous lesionsTranscribe Date/Time: Feb 27 2018 3:22PDictated by: NICOLASA HURST MDThis examination was interpreted and the report reviewed and electronically signed by: NICOLASA HURST MD on Feb 27 2018 7:37PM ESTThank you for allowing us to participate in the care of your patient.Should there be any questions regarding this interpretation, please call [phone].If you are unable to reach us at the number above,please feel free to contact [facility] at [phone] [id number] Normal [facility] [place] PROGRESSon 02-27-2018 Protein mass conc HNO ID: [id number]: Diann Sanchez: (none)Author Type: (none)Type: Progress NotesFiled: 02/27/2018 2:50 PMNote Text: RADIOLOGY SERVICE PROGRESS NOTESERVICE DATE: 02/27/2018SERVICE TIME: 1:04 PMPATIENT IDENTITY VERIFICATION COMPLETED USING TWO (2) METHODS: Patientconfirmed name and Date of verbally.PATIENT GENDER DATA: .male: NoALLERGIES: Reviewed and unchangedMEDICATIONS REVIEWED: Not applicablePATIENT RELEVANT IMPLANT DATA REVIEWED: Not ApplicableCREATININE: No results found for: CREAT, EGFROTH, EGFRAAP.O.C.T. RESULTS: POC done: Yes, See Lab Tab February 27, 2018DIAGNOSTIC CT PERFORMED: NoIV SITE: Ambulatory: A peripheral IV was started in the Left antecubitalsite with a Angio cath: 22 gauge. Ondina Waddell RNPOST EXAM PIV STATUS: DiscontinuedPROCEDURE TYPE: NM INJECT: PET/CT BODY SCAN. 10.3 mCi F18 FDG. No othermedications given..ADMINISTRATION TIME: 1307PATIENT DISCHARGED TO: Ambulatory patient, left NM department area.Diann YovannoA Diagnostic radioactive procedure has taken place, with no furtherprecautions necessary other than routine body substance precautions. Moreinformation regarding radiation safety can be found using this link:[email or web address] [email or web address]%20Medic [email or web address] NATURE: Ondina Waddell PATIENT NAME: Parth LucianoDATE: February 27, 2018 : 1:04 PM PAGER/CONTACT #: Normal [facility] [place] CT-CT LUNG CANCER SCREENING IMPORTon 02-13-2018 CT-CT LUNG CANCER SCREENING IMPORT Images were obtained outside of [facility] [id number] Normal [facility] [place] Vital Signs Date Time Vital Sign Value Performing Clinician Facility 03-25-2024 11:43-0500 Body height 175.26 cm [facility] 03-25-2024 11:43-0500 Body mass index (BMI) [Ratio] 22.9 kg/m2 [facility] 03-25-2024 11:43-0500 Body weight 70.53 kg [facility] 03-25-2024 11:43-0500 Diastolic blood pressure 87 mm[Hg] [facility] 03-25-2024 11:43-0500 Heart rate 74 /min [facility] 03-25-2024 11:43-0500 Respiratory rate 12 /min [facility] 03-25-2024 11:43-0500 Systolic blood pressure 133 mm[Hg] [facility] 03-03-2024 11:11-0500 Body height 172.7 cm Liban Dolce DPM [facility] Work Phone: [facility] 03-03-2024 11:11-0500 Body mass index (BMI) [Ratio] 26.61 kg/m2 Liban Dolce DPM [facility] Work Phone: [facility] 03-03-2024 11:11-0500 Body weight 79.38 kg Liban Dolce DPM [facility] Work Phone: [facility] 03-03-2024 11:11-0500 Diastolic blood pressure 75 mm[Hg] Liban Dolce DPM [facility] Work Phone: [facility] 03-03-2024 11:11-0500 Heart rate 72 /min Liban Dolce DPM [facility] Work Phone: [facility] 03-03-2024 11:11-0500 Systolic blood pressure 129 mm[Hg] Liban Dolce DPM [facility] Work Phone: [facility] 01-07-2024 11:12-0500 Body height 172.7 cm Liban Dolce DPM [facility] Work Phone: [facility] 01-07-2024 11:12-0500 Body mass index (BMI) [Ratio] 26.61 kg/m2 Liban Dolce DPM [facility] Work Phone: [facility] 01-07-2024 11:12-0500 Body weight 79.38 kg Liban Dolce DPM [employer] Work Phone: [facility] 01-07-2024 11:12-0500 Diastolic blood pressure 75 mm[Hg] Liban Dolce DPM [facility] Work Phone: [facility] 01-07-2024 11:12-0500 Heart rate 72 /min Liban Dolce DPM [facility] Work Phone: [facility] 01-07-2024 11:12-0500 Systolic blood pressure 128 mm[Hg] Liban Dolce DPM [facility] Work Phone: [facility] 11-26-2023 11:48-0400 Body height 172.7 cm Liban Danielle DPM [facility] Work Phone: [facility] 11-26-2023 11:48-0400 Body mass index (BMI) [Ratio] 26.61 kg/m2 Liban Balderas DPM [facility] Work Phone: [facility] 11-26-2023 11:48-0400 Body weight 79.38 kg Liban Balderas DPM [facility] Work Phone: [facility] 11-26-2023 11:48-0400 Diastolic blood pressure 77 mm[Hg] Liban Balderas DPM [facility] Work Phone: [facility] 11-26-2023 11:48-0400 Heart rate 70 /min Liban Balderas DPM [facility] Work Phone: [facility] 11-26-2023 11:48-0400 Systolic blood pressure 130 mm[Hg] Liban Balderas DPM [facility] Work Phone: [facility] 07-29-2023 14:02-0400 Body height 175.26 cm [facility] 07-29-2023 14:02-0400 Body mass index (BMI) [Ratio] 23.3 kg/m2 [facility] 07-29-2023 14:02-0400 Body weight 71.78 kg [facility] 07-29-2023 14:02-0400 Diastolic blood pressure 90 mm[Hg] [facility] 07-29-2023 14:02-0400 Heart rate 68 /min [facility] 07-29-2023 14:02-0400 Respiratory rate 12 /min [facility] 07-29-2023 14:02-0400 Systolic blood pressure 134 mm[Hg] [facility] 04-08-2023 09:30-0500 Body height 172.7 cm Liban Balderas DPM [facility] Work Phone: [facility] 04-08-2023 09:30-0500 Body mass index (BMI) [Ratio] 26.15 kg/m2 Liban Balderas DPM [facility] Work Phone: [facility] 04-08-2023 09:30-0500 Body weight 78.02 kg Liban Balderas DPM [facility] Work Phone: [facility] 04-08-2023 09:30-0500 Diastolic blood pressure 77 mm[Hg] Liban Balderas DPM [facility] Work Phone: [facility] 04-08-2023 09:30-0500 Heart rate 74 /min Liban Balderas DPM [facility] Work Phone: [facility] 04-08-2023 09:30-0500 Systolic blood pressure 129 mm[Hg] Liban Balderas DPM [facility] Work Phone: [facility] 03-18-2023 11:00-0500 Body height 175.26 cm Chuck Ball Other [facility] 03-18-2023 11:00-0500 Body mass index (BMI) [Ratio] 24.07 kg/m2 Chukc Ball Other [facility] [employer] Other 03-18-2023 11:00-0500 Body weight 73.94 kg Chuck Ball Other [facility] [employer] Other 03-18-2023 11:00-0500 Body weight 73.93 kg [facility] 03-18-2023 11:00-0500 Diastolic blood pressure 88 mm[Hg] Chuck Ball Other [facility] 03-18-2023 11:00-0500 Respiratory rate 16 /min Chuck Ball Other [facility] [employer] Other 03-18-2023 11:00-0500 Systolic blood pressure 138 mm[Hg] Chuck Ball Other [facility] 07-19-2022 11:00-0400 Body height 175.26 cm Chuck Ball Other [facility] Other 07-19-2022 11:00-0400 Body mass index (BMI) [Ratio] 24.36 kg/m2 Chuck [employer] Other [facility] Other 07-19-2022 11:00-0400 Body weight 74.84 kg Chuck [employer] Other [facility] Other 07-19-2022 11:00-0400 Diastolic blood pressure 89 mm[Hg] Chuck [employer] Other [facility] Other 07-19-2022 11:00-0400 Respiratory rate 12 /min [employer] Other [facility] Other 07-19-2022 11:00-0400 Systolic blood pressure 142 mm[Hg] [employer] Other [facility] Other Encounters Encounter Date Encounter Type Care Provider Facility Start: 03-25-2024 End: 03-25-2024 ambulatory [facility] Work Phone: Start: 03-25-2024 End: 03-25-2024 Encounter for other preprocedural examination [facility] Start: 03-25-2024 End: 03-25-2024 Patient encounter procedure [facility] Work Phone: Start: 03-08-2024 End: 03-08-2024 ambulatory [facility] Work Phone: Start: 03-08-2024 End: 03-08-2024 Patient encounter procedure [facility] Work Phone: Start: 03-03-2024 End: 03-03-2024 [facility] Balderas DPM [facility] Work Phone: [facility] Start: 03-03-2024 End: 03-03-2024 [employer] Liban D Dolce DPM [facility] Work Phone: [facility] Start: 03-03-2024 End: 03-03-2024 Telephone encounter Liban D Dolce DPM [facility] Work Phone: [facility] Start: 03-03-2024 End: 03-03-2024 Office outpatient visit 25 minutes Liban D Dolce DPM [facility] Work Phone: [facility] Comment on above: Metatarsal deformity , left (Primary Dx); Foot pain, left; 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 ([facility]/HCC); Pain in left foot [M79.672] Start: 03-03-2024 End: 03-03-2024 ambulatory LIBAN D DOLCE Not Available Start: 01-28-2024 End: 01-28-2024 Patient encounter procedure [facility] Work Phone: Start: 01-07-2024 End: 01-07-2024 Bamboo flowsheet Liban D Dolce DPM [facility] Work Phone: [facility] Start: 01-07-2024 End: 01-07-2024 Bamboo flowsheet Liban D Dolce DPM [facility] Work Phone: [facility] Start: 01-07-2024 End: 01-07-2024 Office outpatient visit 15 minutes Liban D Dolce DPM [facility] Work Phone: [facility] Comment on above: Neoplasm of uncertai n behavior of skin (Primary Dx); Pain in left foot [M79.672]; Verruca plantaris; Metatarsal deformity, left Start: 01-07-2024 End: 01-07-2024 ambulatory LIBAN D DOLCE Not Available Start: 12-25-2023 End: 12-25-2023 ambulatory [facility] Work Phone: Start: 12-25-2023 End: 12-25-2023 Patient encounter procedure [facility] Work Phone: Start: 11-26-2023 End: 11-26-2023 Bamboo flowsheet Liban D Dolce DPM [facility] Work Phone: [facility] Start: 11-26-2023 End: 11-26-2023 Bamboo flowsheet Liban D Dolce DPM [facility] Work Phone: [facility] Start: 11-26-2023 End: 11-26-2023 Office outpatient visit 15 minutes Liban Balderas DPM [facility] Work Phone: [facility] Comment on above: 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 (CMS/HCC) (Primary Dx); Pain in left foot [M79.672]; Neoplasm of uncertain behavior of skin; Verruca plantaris; Metatarsal deformity, left Start: 11-26-2023 End: 11-26-2023 ambulatory LIBAN Kait DOLCE Not Available Start: 11-21-2023 End: 11-21-2023 ambulatory [facility] Work Phone: Start: 11-21-2023 End: 11-21-2023 Patient encounter procedure [facility] Work Phone: Start: 10-20-2023 End: 10-20-2023 ambulatory DO Chuck Ball Work Phone: [facility] Work Phone: Start: 10-20-2023 End: 10-20-2023 Patient encounter procedure DO Chuck Ball Work Phone: [facility] Work Phone: Start: 09-16-2023 End: 09-16-2023 ambulatory DO Chuck Ball Work Phone: [facility] Work Phone: Start: 09-16-2023 End: 09-16-2023 Patient encounter procedure DO Chuck Ball Work Phone: [facility] Work Phone: Start: 09-15-2023 End: 09-15-2023 ambulatory LIBAN D DOLCE Not Available Start: 08-15-2023 End: 08-15-2023 ambulatory DO Chuck Sanchez Work Phone: [facility] Work Phone: Start: 08-15-2023 End: 08-15-2023 Patient encounter procedure DO Chuck Sanchez Work Phone: [facility] Work Phone: Start: 08-15-2023 End: 08-15-2023 ambulatory LIBAN D DOLCE Not Available Start: 08-11-2023 Non-patient / Non-visit DO Rakesh Sanchez Work Phone: [facility] Work Phone: Start: 08-06-2023 End: 08-06-2023 Patient encounter procedure DO Chuck Sanchez Work Phone: [facility] [address] Work Phone: Start: 08-06-2023 End: 08-06-2023 ambulatory DO Chuck Sanchez Work Phone: [facility] Work Phone: Start: 07-29-2023 End: 07-29-2023 ambulatory [facility] Work Phone: Start: 07-29-2023 End: 07-29-2023 Patient encounter procedure [facility] Work Phone: Start: 07-18-2023 End: 07-18-2023 ambulatory LIBAN D DOLCE Not Available Start: 07-15-2023 End: 07-15-2023 ambulatory [facility] Work Phone: Start: 07-15-2023 End: 07-15-2023 Patient encounter procedure [facility] Physician [facility] Work Phone: Start: 07-04-2023 End: 07-04-2023 ambulatory LIBAN D DOLCE Not Available Start: 06-06-2023 End: 06-06-2023 ambulatory [facility] Work Phone: Start: 06-06-2023 End: 06-06-2023 Patient encounter procedure [facility] Work Phone: Start: 05-23-2023 End: 05-23-2023 ambulatory LIBAN D DOLCE Not Available Start: 05-09-2023 End: 05-09-2023 ambulatory LIBAN D DOLCE Not Available Start: 05-05-2023 End: 05-05-2023 Patient encounter procedure [facility] Work Phone: Start: 2023 End: 2023 ambulatory LIBAN D DOLCE Not Available Start: 04-25-2023 End: 04-25-2023 ambulatory LIBAN D DOLCE Not Available Start: 04-08-2023 Bamboo flowsheet Liban D Dolce DPM FACFAS Work Phone: [facility] Start: 04-08-2023 Bamboo flowsheet Liban D Dolce DPM FACFAS Work Phone: [facility] Start: 04-08-2023 End: 04-08-2023 Patient encounter procedure Liban D Dolce DPM FACFAS Work Phone: [facility] Comment on above: 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 (CMS/HCC) (Primary Dx); Hallux valgus of right foot; Metatarsal deformity, right Start: 04-08-2023 End: 04-08-2023 ambulatory LIBAN D DOLCE Not Available Start: 04-02-2023 Telephone encounter Liban D Dol ce DPM FACFAS Work Phone: [facility] Start: 04-01-2023 End: 04-01-2023 ambulatory Chuck Sanchez Other [facility]. Other Start: 04-01-2023 Nursing evaluation o f patient and report Chuck Sanchez [facility] Start: 03-18-2023 End: 03-18-2023 ambulatory Chuck Sanchez Other [facility]. Other Start: 03-18-2023 Encounter for other preprocedural examination Chuck Sanchez [facility] Start: 03-18-2023 Office outpatient vi sit 25 minutes Chuck Sanchez [facility] Start: 03-18-2023 End: 03-18-2023 Patient encounter procedure [facility]- Start: 03-12-2023 End: 03-12-2023 ambulatory LIBAN BALDERAS Not Available Start: 03-12-2023 End: 03-12-2023 Patient encounter procedure Liban Balderas [facility] Start: 02-26-2023 End: 02-26-2023 ambulatory Chuck Sanchez Other [facility]. Other Start: 02-26-2023 Nursing evaluation o f patient and report Chuck Sanchez [facility] Start: 01-23-2023 End: 01-23-2023 ambulatory Dalia Jenkins Other [facility]. Other Start: 01-23-2023 Nursing evaluation o f patient and report Dalia Alice [facility] Start: 12-23-2022 End: 12-23-2022 ambulatory Chuck Sanchez Other [facility]. Other Start: 12-23-2022 Nursing evaluation o f patient and report Chuck Sanchez [facility] Start: 12-19-2022 End: 12-19-2022 ambulatory Dalia Jenkins Other [facility]. Other Start: 12-19-2022 Nursing evaluation o f patient and report Dalia Alice [facility] Start: 12-04-2022 End: 12-04-2022 ambulatory Estuardo Rojas Facility:[facility] Start: 11-18-2022 End: 11-18-2022 ambulatory Chuck Sanchez Other [facility]. Other Start: 11-18-2022 Nursing evaluation o f patient and report Chuck Sanchez [facility] Start: 10-16-2022 End: 10-16-2022 ambulatory Chuck Sanchez Other [facility]. Other Start: 10-16-2022 Nursing evaluation o f patient and report Chuck Sanchez [facility] Start: 09-12-2022 End: 09-12-2022 ambulatory Dalia Jenkins Other [facility]. Other Start: 09-12-2022 Nursing evaluation o f patient and report Dalia Jenkins [facility] Start: 09-05-2022 End: 09-05-2022 Patient encounter procedure DO Chuck Sanchez Work Phone: [facility] [address] Work Phone: Start: 09-05-2022 End: 09-05-2022 ambulatory DO Chuck Sanchez Work Phone: [facility] Work Phone: Start: 08-14-2022 End: 08-14-2022 ambulatory Chuck Sanchez Other [facility]. Other Start: 08-14-[address] [facility] Start: 08-08-2022 End: 08-08-2022 ambulatory Chuck Sanchez Other [facility]. Other Start: 08-08-2022 Telephone encounter Chuck Sanchez [facility] Start: 08-07-2022 End: 08-07-2022 ambulatory Christen Gunter Other [facility]. Other Start: 08-07-2022 Nursing evaluation o f patient and report Christen Gunter [facility] Start: 07-19-2022 End: 07-19-2022 ambulatory Chuck Sanchez Other [facility]. Other Start: 07-19-2022 Patient encounter procedure Chuck Sanchez [facility] Start: 07-04-2022 End: 07-04-2022 ambulatory Chuck Sanchez Other [facility]. Other Start: 07-04-2022 Nursing evaluation o f patient and report Chuck Sanchez [facility] Start: 06-06-2022 End: 06-06-2022 ambulatory DO Chuck Sanchez Work Phone: [facility] Work Phone: Start: 06-06-2022 End: 06-06-2022 Patient encounter procedure DO Chuck Sanchez Work Phone: [facility] [address] Work Phone: Start: 05-30-2022 End: 05-30-2022 ambulatory Chuck Sanchez Other [facility]. Other Start: 05-30-2022 Nursing evaluation o f patient and report Chuck Sanchez [facility] Start: 04-25-2022 End: 04-25-2022 ambulatory Chuck Sanchez Other [facility]. Other Start: 04-25-2022 Nursing evaluation o f patient and report Chuck Sanchez [facility] Start: 03-25-2022 End: 03-25-2022 ambulatory Dalia Jenkins Other [facility]. Other Start: 03-25-2022 Nursing evaluation o f patient and report Dalia Alice [facility] Start: 11-16-2021 End: 11-17-[address] CUHCK SANCHEZ Facility:[facility] Start: 11-13-2021 End: 11-13-2021 Patient encounter procedure DO Chuck Sanchez Work Phone: [facility] [address] Start: 08-15-2021 End: 08-15-2021 Patient encounter procedure DO Chuck Sanchez Work Phone: [facility] [address] Start: 07-26-2021 End: 07-27-[address] CHUCK SANCHEZ Facility:[facility] Start: 07-19-2021 Adult health examination Edmar Sanchez Other [facility]. Other Start: 05-14-2021 End: 05-14-2021 Patient encounter procedure DO Chuck Sanchez Work Phone: [facility] [address] Start: 12-26-2020 End: 12-27-[address] CHUCK SANCHEZ Facility:[facility] Start: 12-25-2020 End: 12-26-[address] CHUCK SANCHEZ Facility:[facility] Start: 02-27-2018 End: 03-03-2018 Patient encounter procedure CHUCK SANCHEZ [facility] Procedures Date Procedure Procedure Detail Performing Clinician Start: 03-03-2024 Radex foot complete minimum 3 views Liban Balderas DPM FACFAS Work Phone: Start: 07-26-[address] J CARLOS WAYNE SOFÍA Comment on above: Performed By: #### P [facility] #### [facility] [address] [place] [address] Dr. Sharath Aguilera Start: 02-05-2018 Diabetes mellitus screening Chuck Sanchez Other Start: 02-05-2018 Hyperlipidemia screening Chuck Sanchez Other Start: 08-31-2015 General examination of patient Chuck Sanchez Other Start: 08-31-2015 Screening for malign ant neoplasm of colon Chuck Sanchez Other Start: 08-31-2015 Screening for malign ant neoplasm of prostate Chuck Sanchez Other Depression screening Kapil Sanchez Other Screening for malign ant neoplasm of prostate Chuck Sanchez Other Plan of Treatment Date Care Activity Detail Author Start: 08-30-2025 Screening for malign ant neoplasm of colon [facility] Start: 03-03-2024 End: 03-03-2024 Patient encounter procedure [facility] Comment on above: Arrived Start: 12-31-2023 End: 12-31-2023 Patient encounter procedure 12/31/2023 11:20 AM EST Office Visit [facility] [address] [place] [address] Libna Balderas, DPM FACFAS [address] [place] [address] [facility] Start: 11-26-2023 End: 11-26-2023 Patient encounter procedure 11/26/2023 11:40 AM EDT Office Visit [facility] [address] [place] [phone] Liban Balderas, DPM FACFAS [address] [facility] [address] Arrived [facility] Comment on above: Arrived Start: 10-26-2023 Influenza vaccination Influenza Vacc ine (#1) [facility] Start: 04-25-2023 End: 04-25-2023 Patient encounter procedure 04/25/2023 9:20 AM EST Office Visit [facility] [address] [place] [phone] Liban Balderas, DPM FACFAS [address] [place] [address] [facility] Start: 04-08-2023 End: 04-08-2023 Patient encounter procedure [facility] Comment on above: Arrived Start: 04-03-2023 End: 04-03-2023 Patient encounter procedure 04/03/2023 7:50 AM EST Procedure Visit [facility] Liban Balderas, DPM FACFAS [address] [facility] [address] [facility] Start: 02-05-2019 Pneumococcal Vaccine : 65+ Years (2 of 2 - PPSV23 or PCV20) Pneumococcal Vaccine: 65+ Years (2 of 2 - PPSV23 or PCV20) [facility] Start: 1950 Screening for malign ant neoplasm of colon [facility] Comprehensive metabo lic 2000 panel - Serum or Plasma [facility] XR Foot - right 3 Views XR foot 3+ views right Imaging Routine Hallux valgus of right foot Metatarsal deformity, right 04/08/2023 9:31 AM EST [facility] Work Phone: [facility] Immunizations Immunization Date Immunization Notes Care Provider Fa cility 01-28-2024 influenza, high dose seasonal, preservative-free [facility] 01-28-2024 influenza virus vaccine, unspecified formulation Liban Balderas CHILORayray FACFAS Work Phone: [facility] 12-23-2022 influenza, high dose seasonal, preservative-free Chuck Sanchez Other [facility] [employer] Other 12-23-2022 influenza virus vaccine, unspecified formulation [facility] 12-03-2021 influenza virus vaccine, split virus (incl. purified surface antigen) Chuck Sanchez Other [facility] [employer] Other 12-03-2021 influenza virus vaccine, unspecified formulation [facility] 12-03-2021 influenza, high dose seasonal, preservative-free Christen Gunter Other [facility] [employer] Other 12-26-2020 COVID-19 Vaccine Pfi zer - Documentation Purposes Only Christen Gunter Other [facility] 12-11-2020 influenza virus vaccine, split virus (incl. purified surface antigen) Chuck Sanchez Other [facility] [employer] Other 12-11-2020 influenza virus vaccine, unspecified formulation [facility] 05-16-2020 COVID-19 Vaccine Pfi zer - Documentation Purposes Only Christen Gunter Other [facility] 04-24-2020 COVID-19 Vaccine Pfi zer - Documentation Purposes Only Christen Gunter Other [facility] 12-07-2019 influenza virus vaccine, split virus (incl. purified surface antigen) Chuck Sanchez Other [facility] [employer] Other 12-07-2019 influenza virus vaccine, unspecified formulation [facility] 06-09-2019 pneumococcal polysaccharide vaccine, 23 valent Christen Gunter Other [facility] 12-14-2018 influenza virus vaccine, split virus (incl. purified surface antigen) Chuck Sanchez Other [facility] [employer] Other 12-14-2018 influenza virus vaccine, unspecified formulation [facility] 04-24-2018 zoster vaccine recombinant Christen Lyric Other [facility] 02-20-2018 zoster vaccine recombinant Christen Lyric Other [facility] 02-05-2018 pneumococcal Conjuga te, unspecified formulation; Translations: [Need for prophylactic vaccination against Streptococcus pneumoniae (pneumococcus)] Chuck Sanchez Other [facility] [employer] Other 02-05-2018 pneumococcal conjuga te vaccine, 13 valent Christenyajaira Gunter Other [facility] 12-12-2017 influenza virus vaccine, split virus (incl. purified surface antigen) Chuck Sanchez Other [facility] [employer] Other 12-12-2017 influenza virus vaccine, unspecified formulation [facility] 11-27-2016 tetanus and diphther ia toxoids, adsorbed, preservative free, for adult use (5 Lf of tetanus toxoid and 2 Lf of diphtheria toxoid) Chuck Sanchez Other [facility] 12-01-2015 tetanus and diphther ia toxoids, adsorbed, preservative free, for adult use (5 Lf of tetanus toxoid and 2 Lf of diphtheria toxoid) Chuck Sanchez Other [facility] 12-13-2013 tetanus and diphther ia toxoids, adsorbed, preservative free, for adult use (5 Lf of tetanus toxoid and 2 Lf of diphtheria toxoid) Chuck Sanchez Other [facility] Payers Date Payer Category Payer Private Health Insurance [id number] 2017 Medicare [id number] 1959 Medicare [id number] 1959 Self-pay [id number] 1959 Unknown [id number] 1952 Unknown [id number] 2.16.84 0.1.119558.3.579.2.593 1952 Unknown [id number] 2.16.84 0.1.604959.3.579.2.593 1952 Unknown [id number] 2.16.84 0.1.125454.3.579.2.593 1952 Unknown [id number] 2.16.84 0.1.576560.3.579.2.1259 1952 Unknown [id number] 2.16.84 0.1.402412.3.579.2.1259 1952 Unknown [id number] 2.16.84 0.1.672342.3.579.2.1259 1952 Unknown [id number] 2.16.84 0.1.316137.3.579.2.1259 1952 Unknown [id number] 2.16.84 0.1.491066.3.579.2.1259 1952 Unknown [id number] 2.16.84 0.1.300155.3.579.2.1259 1952 Unknown [id number] 2.16.84 0.1.105155.3.579.2.1259 1952 Unknown [id number] 2.16.84 0.1.276323.3.579.2.1259 1952 Unknown [id number] 2.16.84 0.1.731031.3.579.2.1259 1952 Unknown [id number] 2.16.84 0.1.032189.3.579.2.9 1952 Unknown [id number] 2.16.84 0.1.768388.3.579.2.9 1952 Unknown [id number] 2.16.84 0.1.346589.3.579.2.1258 1952 Unknown [id number] 2.16.84 0.1.124094.3.579.2.1258 1952 Unknown [id number] 2.16.84 0.1.185164.3.579.2.1258 1952 Unknown [id number] 2.16.84 0.1.620702.3.579.2.1258 1952 Unknown [id number] 2.16.84 0.1.380100.3.579.2.1258 1952 Unknown [id number] 2.16.84 0.1.491824.3.579.2.1259 Private Health Insurance [facility] [id number] Unknown [id number] Unknown [id number] Unknown [id number] 2.16.84 0.1.030231.3.579.2.593 Unknown [id number] 2.16.8 40.1.744270.3.579.2.531 Unknown [id number] 2.16.8 40.1.918851.3.579.2.531 Unknown [id number] 2.16.8 40.1.599082.3.579.2.531 Social History Date Type Detail Facility [facility] Work Phone: Start: 1950 Sex Assigned At Male [facility] Start: 03-12-2023 End: 03-03-2024 Sex Assigned At [facility] Tobacco smoking status No Smokin g Status Entered [facility] Start: 08-16-2022 Tobacco smoking stat us NHIS Never smoked tobacco [facility] Start: 08-16-2022 Tobacco use and exposure Smokeless tobacco non-user [facility] Start: 03-12-2023 End: 03-03-2024 Alcohol intake Lifetime non-drinker (finding) [facility] Start: 03-12-2023 End: 03-03-2024 History of Social function [facility] Start: 1950 Sex Assigned At Not on file [facility] Start: 03-17-2023 End: 01-28-2024 Tobacco smoking status NHIS Smoker (finding) [facility] Start: 03-08-2024 End: 03-25-2024 Sex Male (finding) [facility] Clinical Notes 03-25-2022 to 03-03-2024 Telephone Encounter - HILARY Kirkland - 03/03/2024 10:18 PM ESTTelephone Encounter - HILARY Kirkland - 03/03/2024 10:18 PM ESTHILARY Kirkland - 03/03/2024 10:50 AM EST Note Date & Type Note Facility 03-03-2024 Telephone encounter Note Phone #: [phone] Insurance: Payor: MEDICARE / Plan: MEDICARE PART B / Product Type: Medicare / Preferred Date/Time: First Available [x] MISSAEL [] Patient Name: Joo Luciano : 1950 Surgeon: Dr. Libna Balderas [x] Dr. Leland Balderas [] Location: [facility] [x] [facility] [] [facility] [] Procedure(s): 1 Pathak bunionectomy, 2. Gill -brando procedure CPT Code(s): 43201 20689 Diagnosis: No diagnosis found. Procedure Time: 30 min [] 1 Hour [x] 1.5 Hour [] 2 Hours [] Anesthesia: MAC [x] General [] Local [] Popliteal Block [] Position: Supine [x] Prone [] Lateral [] Special Requests: C-arm [x] Pulse Lavage [] VersaJet [] Special Equipment: Arthrex plate /screws [] Internal brace [] Arthrex FiberTak [] Biopro Staple [] Biopro Hank Impant [] Other [] Pre-op Orders: Abx 30 min Prior: 2g Ancef [x] Clindamycin 600mg [] Vancomycin 1 g [] Post-op WB: Partial WB [x] Non-WB [x] Crutches [] Walker [] Knee Scooter [] PCP Clearance: Chuck Sanchez MD Other Clearance: Cardiology [] Rheumatology [] Other [x] Patient may need to stop his methotrexate [facility] [employer] Work Phone: 03-03-2024 Miscellaneous Notes Phone #: [phone] Insurance: Payor: MEDICARE / Plan: MEDICARE PART B / Product Type: Medicare / Preferred Date/Time: First Available [x] MISSAEL [] Patient Name: Joo Luciano : 1950 Surgeon: Dr. Liban Balderas [x] Dr. Leland Balderas [] Location: [facility] [x] [facility] [] [facility] [] Procedure(s): 1 Pathak bunionectomy, 2. Gill -brando procedure CPT Code(s): 23275 29678 Diagnosis: No diagnosis found. Procedure Time: 30 min [] 1 Hour [x] 1.5 Hour [] 2 Hours [] Anesthesia: MAC [x] General [] Local [] Popliteal Block [] Position: Supine [x] Prone [] Lateral [] Special Requests: C-arm [x] Pulse Lavage [] VersaJet [] Special Equipment: Arthrex plate /screws [] Internal brace [] Arthrex FiberTak [] Biopro Staple [] Biopro Hank Impant [] Other [] Pre-op Orders: Abx 30 min Prior: 2g Ancef [x] Clindamycin 600mg [] Vancomycin 1 g [] Post-op WB: Partial WB [x] Non-WB [x] Crutches [] Walker [] Knee Scooter [] PCP Clearance: Chuck Sanchez MD Other Clearance: Cardiology [] Rheumatology [] Other [x] Patient may need to stop his methotrexate documented in this encounter [facility] 03-03-2024 History of Present illness Narrative Patient: Joo Luciano : 1950 PCP: Chuck Sanchez MD SUBJECTIVE This is a 73 y.o. male that presents today for a chief complaint of This patient has been dealing with severe forefoot deformities secondary to rheumatoid arthritis. 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 He has been improving with the use of topical salicylic acid as well as offloading. But he is at a point now where he has significant limitation ambulation due to pain and pressure from the deformity of the left foot. He wishes to discuss surgical intervention possibly in the fall. On a scale of 1-10 the patient rates the pain as an 9 with 10 being the worst pain of the lives. He is attempted shoe gear modifications anti-inflammatory medications to no avail. Previous Gill procedure on her right had an excellent postoperative outcome. Allergies: No Known Allergies Past Medical History: Past Medical History: Diagnosis Date Abscess of foot 11/27/2022 Anemia pernicious Arthritis Deformity of metatarsal 11/27/2022 Rheumatoid arthritis ([facility]) Medications: Current Outpatient Medications: methotrexate 2.5 MG tablet, TAKE 7 TABLETS BY MOUTH ONCE A WEEK, Disp: , Rfl: ROS: Constitutional: Denies fever, chills, nausea, vomiting GI: Denies abdominal pain, cramping, loose stool, gastric ulcers Musculoskeletal: Denies low back pain, knee pain, systemic arthritis Neurologic: Denies burning, tingling, transient paralysis OBJECTIVE Physical examination: Vascular: Dorsalis pedis posterior tibial pulses are palpable bilateral, no edema noted Neuro: Milliken-Gab 5.07 monofilament intact, vibratory sensation intact Derm: All hair growth noted skin temperature is warm to cool knees to toes There is pinpoint bleeding noted upon debridement. Pain with lateral compression. No skin lines running through the lesion. The lesions are multiple and sporadic. Musculoskeletal: Muscle strength +5/5 all intrinsic and extrinsic muscles tested Severe fibular deviation of the lesser digits with a large hallux abductovalgus deformity left foot. There is severe contracture of the PIPJ joint and MPJ joints creating pressure plantarly at the level of the lesser metatarsal heads. There is hallux abductovalgus deformity is rigidly fixed and non reducible. There is significant anterior displacement of the fat pad plantarly as well. XRAY: Three views were taken today AP/MO/LAT foot: significant degenerative arthritis noted of the left 1st metatarsophalangeal joint with severe osteophytic formation great toe joint appears to be subluxed with cystic formation noted. The lesser metatarsophalangeal joints are subluxed Fourth and 5th metatarsus not degenerative arthritis noted of the 2nd and 3rd metatarsal. s well with significant ankylosis noted. Severe fibular deviation noted as well with mild osteopenia. ASSESSMENT 1. Foot pain, left PLAN I discussed the etiology of his severe forefoot deformity on the left. I explained to him how the severe subluxation and ankylosis of his lesser metatarsals and great toe joint are directly related to his rheumatoid arthritis. He is at a point where he is having significant limitation in activities of daily living secondary to the deformities. I discussed in great detail reconstruction of the forefoot including a Gill lake metatarsal head resection on the left. With fusion Pathak procedure procedure of the great toe joint has a toe is rigidly fixed We felt this would be the best option to allow him to ambulate without pain and prevent further destruction of his forefoot which could lead to further disability in the future. Plantar plantar approach where the displaced fat pad can be brought more proximally does have a large hallux valgus deformity. Patient is currently on methotrexate I discussed stopping the methotrexate prior and after his surgery as may impede his postoperative healing. He has an appointment with his bridge tender next week discussed stopping his methotrexate prior to surgery. Today I debrided all the porokeratosis. Applied 60 percent salicylic acid to the lesions recommended continue offloading and shoe gear modifications. He will follow up with me in 2 weeks Liban Balderas DPM FACFAS, FACFAS documented in this encounter [facility] 01-07-2024 History of Present illness Narrative Images from the original note were not included. Patient: Joo Luciano : 1950 PCP: Chuck Sanchez MD SUBJECTIVE This is a 73 y.o. male that presents today with a chief complaint of a painful lesion plantar aspect of the foot. They state the lesion has been slow growing and has multipled. The area is painful and causes marked limitation in ambulation secondary to the pain. They have attempted [id number] anti-inflammatory medications as well as pwpt-uru-kfvunzn wart treatment to no avail. This is relating to his left foot. His right foot status post Gill procedure doing very well no complaints very happy with the outcome of the procedure. Allergies: No Known Allergies Past Medical History: Past Medical History: Diagnosis Date Abscess of foot 11/27/2022 Anemia pernicious Arthritis Deformity of metatarsal 11/27/2022 Rheumatoid arthritis ([facility]) Medications: Current Outpatient Medications: methotrexate 2.5 MG tablet, TAKE 7 TABLETS BY MOUTH ONCE A WEEK, Disp: , Rfl: Review of systems: Constitutional: Denies fever, chills, nausea, vomiting GI: Denies abdominal pain, cramping, loose stool, gastric ulcers Musculoskeletal: Denies low back pain, knee pain, systemic arthritis Neurologic: Denies burning, tingling, transient paralysis OBJECTIVE Physical Examination: DERM: Positive hair growth to b/l feet with good skin turgor noted. Negative openings in skin. There is pinpoint bleeding noted upon debridement. Pain with lateral compression. No skin lines running through the lesion. The lesions are multiple and sporadic. Left VASC: DP /PT were palpable bilateral. Capillary refill time < 3 seconds Digits 1-5 bilateral NEURO: Milliken Gab 5.07 monofilament was intact B/L. Vibratory sensation was intact B/L Musculoskeletal: Muscle strength was +5 over 5 all intrinsic and extrinsic muscles tested. Gill procedure doing well no signs of hyperkeratosis no pain right foot. With direct palpation of the 3rd metatarsophalangeal joint secondary to rigidly contracted MPJ and left. ASSESSMENT 1. Neoplasm of uncertain behavior of skin 2. Pain in left foot [M79.672] 3. Verruca plantaris 4. Metatarsal deformity, left PLAN Patient was educated on the etiology of the plantar neoplasm. We discussed surgical versus conservative options. From a surgical standpoint we discussed excision with pathological examination versus Chemo -lytic treatment. Today I debrided the lesions to the level of pinpoint bleeding. I applied an application of 60 percent salicylic acid to the lesions. Covered with an occlusive dressing. Doing well on the right no complaints able to walk and cut the grass very happy with the outcome of his surgery. Follow-up 1 month. Discussed possible osteotomy of the left 3rd metatarsal we will further discuss next visit and plan radiographs. HILARY Kirkland documented in this encounter [facility] 12-25-2023 Evaluation note Diagnosis Onset Date Resolution Pernicious anemia acute December 25, 2023 2:30pm [facility] Work Phone: 1(524) 463-928410-02-2024 History of Present illness Narrative* HILARY Kirkland - 11/26/2023 11:40 AM EDT Images from the original note were not included. Patient: Joo Luciano : 1950 PCP: Chuck Sanchez MD SUBJECTIVE This is a 73 y.o. male that presents today with a chief complaint of a painful lesion plantar aspect of the foot. They state the lesion has been slow growing and has multipled. The area is painful and causes marked limitation in ambulation secondary to the pain. They have attempted ltke-fad-llueapseiyo- inflammatory medications as well as yzho-vmb-nqwrkny wart treatment to no avail. This is relating to his left foot. His right foot status post Gill procedure doing very well no complaints very happy with the outcome of the procedure. Allergies: No Known Allergies Past Medical History: Past Medical History: Diagnosis Date Abscess of foot 11/27/2022 Anemia pernicious Arthritis Deformity of metatarsal 11/27/2022 Rheumatoid arthritis (CMS/HCC) Medications: Current Outpatient Medications: methotrexate 2.5 MG tablet, TAKE 7 TABLETS BY MOUTH ONCE A WEEK, Disp: , Rfl: Review of systems: Constitutional: Denies fever, chills, nausea, vomiting GI: Denies abdominal pain, cramping, loose stool, gastric ulcers Musculoskeletal: Denies low back pain, knee pain, systemic arthritis Neurologic: Denies burning, tingling, transient paralysis OBJECTIVE Physical Examination: DERM: Positive hair growth to b/l feet with good skin turgor noted. Negative openings in skin. There is pinpoint bleeding noted upon debridement. Pain with lateral compression. No skin lines running through the lesion. The lesions are multiple and sporadic. Left VASC: DP /PT were palpable bilateral. Capillary refill time < 3 seconds Digits 1-5 bilateral NEURO: Milliken Gab 5.07 monofilament was intact B/L. Vibratory sensation was intact B/L Musculoskeletal: Muscle strength was +5 over 5 all intrinsic and extrinsic muscles tested. Gill procedure doing well no signs of hyperkeratosis no pain right foot. With direct palpation of the 3rdmetatarsophalangeal joint secondary to rigidly contracted MPJ and left. ASSESSMENT 1. 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 (CMS/HCC) 2. Pain in left foot [M79.672] 3. Neoplasm of uncertain behavior of skin 4. Verruca plantaris 5. Metatarsal deformity, left PLAN Patient was educated on the etiology of the plantar neoplasm. We discussed surgical versus conservative options. From a surgical standpoint we discussed excision with pathological examination versus Chemo -lytic treatment. Today I debrided the lesions to the level of pinpoint bleeding. I applied anapplication of 60 percent salicylic acid to the lesions. Covered with an occlusive dressing. Doing well on the right no complaints able to walk and cut the grass very happy with the outcome of his surgery. Follow-up 1 month. Discussed possible osteotomy of the left 3rd metatarsal we will further discuss next visit and plan radiographs HILARY Kirkland [id number] History of Present illness Narrative* HILARY Kirkland - 04/08/2023 9:30 AM EST Images from the original note were not included. Patient: Joo Luciano : 1950 PCP: Chuck Sanchez MD SUBJECTIVE This is a 72 y.o. male that presents today The patient is here status post Pathak/Gill Brando procedure right procedure. Postop week 1. They deny fevers, chills, nausea, vomiting, calf pain and shortness of breath. Pain level is being managed with ice elevation and pain medication. They have been relatively compliant with her postoperative care. Patient is doing quite well minimal pain Allergies: No Known Allergies Past Medical History: Past Medical History: Diagnosis Date Abscess of foot 11/27/2022 Anemia pernicious Arthritis Deformity of metatarsal 11/27/2022 Rheumatoid arthritis ([facility]) Medications: Current Outpatient Medications: cephalexin (Keflex) 500 MG capsule, Take 1 capsule (500 mg) by mouth in the morning and 1 capsule (500 mg) in the evening and 1 capsule (500 mg) before bedtime. Do all this for 10 days. TAKE 1 PILL P.O. T.I.D. FOR 10 DAYS., Disp: 30 capsule, Rfl: 0 methotrexate 2.5 MG tablet, TAKE 7 TABLETS BY MOUTH ONCE A WEEK, Disp: , Rfl: oxyCODONE-acetaminophen (Percocet) 5-325 MG tablet, Take 1 tablet by mouth 4 (four) times a day as needed for severe pain for up to 5 days TAKE 1 PILL P.O. Q.4H P.R.N. PAIN, Disp: 20 tablet, Rfl: 0 Review of systems: Constitutional: Denies fever, chills, nausea, vomiting GI: Denies abdominal pain, cramping, loose stool, gastric ulcers Musculoskeletal: Denies low back pain, knee pain, systemic arthritis Neurologic: Denies burning, tingling, transient paralysis OBJECTIVE Physical Examination: DERM: Positive hair growth to b/l feet with good skin turgor noted. Negative openings in skin VASC: DP /PT were palpable bilateral. Capillary refill time < 3 seconds Digits 1-5 bilateral NEURO: Milliken Gab 5.07 monofilament was intact B/L. Vibratory sensation was intact B/L Musculoskeletal: Muscle strength was +5 over 5 all intrinsic and extrinsic muscles tested. NegativeHomans test noted Surgical site evaluation: The incision site is healing well without signs infection. Minimal swelling noted. Consistent with the patient's level of surgery consistent with time frame postoperatively.Sutures remain intact without signs of dehiscence. Radiographs: AP/MO/LAT: Excellent position and resection of the lesser metatarsals metatarsal parabola has been maintained K-wires intact Diagnostic ultrasound: ASSESSMENT 1. 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 (CMS/HCC) 2. Hallux valgus of right foot 3. Metatarsal deformity, right PLAN Today we applied a dry sterile dressing with betadine to the incision site. Covered the incision with 4x4s, Kerlix and Aguilar bandage. The Patient is to continue ice and elevation on a regular basis. They were reminded to remain compliant with her weight-bearing status in the ambulatory surgical device. I applied a below-knee posterior splint well-padded continue with the knee 1 mg aspirin he is to continue to remain off his rheumatoid medication dispensed a prescription for Keflex 500 mg t.i.d. as well as Percocet 5 mg for pain with nonweightbearing on the foot follow up with me in 1 week HILARY Kirkland documented [facility] encounter[facility] [id number] Evaluation note* Encounter Date Diagnosis Assessment Notes Treatment Notes Treatment Clinical Notes Mar, Pernicious anemia (ICD-10 - D51.0) UB. Other 01-23-2024 Evaluation note* Encounter Date Diagnosis Assessment Notes Treatment Notes Treatment Clinical Notes Feb, Preop exam for internal medicine (ICD-10 - Z01.818) Patient seen and examined for preoperative evaluation. I have reviewed his medications - Podiatry has instructed him to hold his MTX for two doses, prior to his procedure - he was instructed to avoid fish oil, ASA, NSAIDs Feb, Nicotine dependence, cigarettes, uncomplicated (ICD-10 - F17.210) Instructed to decrease or stop smoking two weeks prior to surgery. Cough and deep breathing exercises. Mucolytics as needed for cough. Feb, Rheumatoid arthritis involving multiple sites with positive rheumatoid factor (ICD-10 - M05.79) Stable and in remission. Podiatry has him holding his MTX prior to surgery. Feb, Pernicious anemia (ICD-10 - D51.0) Stable, continue w/ monthly B12 supplements. UB. Other 01-03-2024 Evaluation note* Encounter Date Diagnosis Assessment Notes Treatment Notes Treatment Clinical Notes 03 Lance, 2024 Pernicious anemia (ICD-10 - D51.0) UB. Other 11-30-2023 Evaluation note* Encounter Date Diagnosis Assessment Notes Treatment Notes Treatment Clinical Notes Dec, Pernicious anemia (ICD-10 - D51.0) UB. Other 10-26-2023 Evaluation note* Encounter Date Diagnosis Assessment Notes Treatment Notes Treatment Clinical Notes Nov, Pernicious anemia (ICD-10 - D51.0) UB. Other 09-25-2023 Evaluation note* Encounter Date Diagnosis Assessment Notes Treatment Notes Treatment Clinical Notes Oct, Pernicious anemia (ICD-10 - D51.0) UB. Other 08-23-2023 Evaluation note* Encounter Date Diagnosis Assessment Notes Treatment Notes Treatment Clinical Notes Sep, Pernicious anemia (ICD-10 - D51.0) UB. Other 07-20-2023 Evaluation note* Encounter Date Diagnosis Assessment Notes Treatment Notes Treatment Clinical Notes Aug, Pernicious anemia (ICD-10 - D51.0) UB. Other 06-15-2023 Evaluation note* Encounter Date Diagnosis Assessment Notes Treatment Notes Treatment Clinical Notes Jul, Cigarette nicotine dependence without complication (ICD-10 - F17.210) LDCT w/o suspicious nodules - 07/2021, 07/2022 UB. Other 06-14-2023 Evaluation note* Encounter Date Diagnosis Assessment Notes Treatment Notes Treatment Clinical Notes Jul, Pernicious anemia (ICD-10 - D51.0) UB. Other 05-26-2023 Evaluation note* Encounter Date Diagnosis Assessment Notes Treatment Notes Treatment Clinical Notes June, Medicare annual wellness visit, subsequent (ICD-10 - Z00.00) Personalized health advice was given to the beneficiary including a written plan for screenings discussed and provided. Advanced care planning reviewed and/or information given as requested. Additional counseling was provided here today in regards to, [ ]. The above visit was performed by [ ], under direct supervision of [ ]. Document reviewed and amended by provider signed below. Healthy diet and exercise. Reviewed age-appropriate preventive testing recommended. June, Lumbar spondylolysis (ICD-10 - M43.06) The patient is instructed to avoid bending, twisting or lifting. They are to use intermittent heat and ice as needed. They may schedule a massage or gentle manipulation. They may safely use Tylenol as needed. June, Controlled type 2 diabetes mellitus with hyperglycemia, without long-term current use of insulin (ICD-10 - E11.65) This patient is following a comprehensive diabetic treatment plan. They are checking their feet daily for calluses and nonhealing ulcers. They are being seen for yearly dilated eye examinations. Goals: SBP less than 130, LDL less than 100, FBS less than 140, AC and A1C less than 7%. They are checking their BS daily, will which are reviewed at the office visit. A1C: [ ] Microalbumin: [ ] Eye exam: [ ] Foot exam: [ ] June, Rheumatoid arthritis involving multiple sites with positive rheumatoid factor (ICD-10 - M05.79) June, Cigarette nicotine dependence without complication (ICD-10 - F17.210) LDCT w/o suspicious nodules - 07/2021 This patient has been encouraged to quit tobacco use immediately. They are aware of the hazards associated with tobacco use, including but not limited to respiratory infections, vascular disease and cancers. 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 Other 05-11-2023 Evaluation note* Encounter Date Diagnosis Assessment Notes Treatment Notes Treatment Clinical Notes June, Pernicious anemia (ICD-10 - D51.0) UB. Other 04-06-2023 Evaluation note* Encounter Date Diagnosis Assessment Notes Treatment Notes Treatment Clinical Notes May, Pernicious anemia (ICD-10 - D51.0) UB. Other 03-02-2023 Evaluation note* Encounter Date Diagnosis Assessment Notes Treatment Notes Treatment Clinical Notes Apr, Pernicious anemia (ICD-10 - D51.0) UB. Other 01-30-2023 Evaluation note* Encounter Date Diagnosis Assessment Notes Treatment Notes Treatment Clinical Notes Feb, Pernicious anemia (ICD-10 - D51.0) UB. Other Evaluation + Plan note No data available for this section [facility] information [facility] Work Phone: Evaluation noteNo InformationNortEvangelical [facility] [employer] Other Evaluation note* Diagnosis 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 (CMS/HCC)- Primary Hallux valgus of right foot [facility] Diagnosis 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 (CMS/HCC)- Primary Hallux valgus of right foot Metatarsal deformity, right [facility]* Diagnosis Onset Date Resolution Status IFG (impaired fasting glucose) acute Lumbar spondylosis acute Lung nodule acute MGUS (monoclonal gammopathy of unknown significance) acute Nicotine addiction acute Rheumatoid arthritis in remission acute Medicare annual wellness visit, subsequent noneactive Screening PSA (prostate specific antigen) noneactive [facility] Work Phone: Evaluation note* Diagnosis Onset Date Resolution Status B12 deficiency noneactive [facility] Work Phone: Evaluation note* Diagnosis 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 (CMS/HCC)- Primary Pain in left foot [M79.672] Pain in soft tissues of limb Neoplasm of uncertain behavior of skin Verruca plantaris Plantar wart Metatarsal deformity, left [facility] Diagnosis Neoplasm of uncertain behavior of skin- Primary Pain in left foot [M79.672] Pain in soft tissues of limb Verruca plantaris Plantar wart Metatarsal deformity, left documented in [facility] encounter [facility]* Diagnosis Metatarsal deformity, left- Primary Foot pain, left Pain in soft tissues of limb 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 (CMS/HCC) Pain in left foot [M79.672] Pain in soft tissues of limb documented in this encounter [facility]* Diagnosis Onset Date Resolution Status Admit Date IFG (impaired fasting glucose) acute March 25 11:27am Nicotine addiction acute 2024 11:27am Rheumatoid arthritis in remission acute March 25 11:27am Preop exam for internal medicine noneactive March 25 11:27am [facility] Work Phone: History general Narrative - Reported* Type Description Date Medical History Anemia Medical History Pre- Diabetic Surgical History tonsillectomy Hospitalization History anemia 1987 UB. Other History general Narrative - Reported* Type Description Date Medical History Anemia Medical History Pre- Diabetic Medical History Monoclonal gammopathy of unknown significance (MGUS) Medical History IFG (impaired fasting glucose) Medical History Controlled type 2 di abetes mellitus with hyperglycemia, without long-term current use of insulin Surgical History tonsillectomy Hospitalization History anemia 1987 [facility]. Other Hospital Discharge instructions No data available for this section [facility] No data available for this section [facility] Summary Purpose Family History Relationship Condition Age at Onset Recorded Date/T tammy brother Unknown daughter Malignant neoplasm Unknown Unknown father Heart disease Unknown Not Specified Diabetes mellitus Unknown Relationship Condition Age at Onset Recorded Date/T tammy brother Unknown daughter Malignant neoplasm Unknown Unknown father Heart disease Unknown mother Diabetes mellitus Unknown Advance Directives Advance Directive Response Recorded Date/ Time Advance Directives No July 09 1:08pm Advance Directive Response Recorded Date/ Time Advance Directives No January 28, 2024 2:31pm Chief Complaint and Reason for Visit Chief Complaint See order Chief Complaint M05.79 M15.0 Z79.899 Chief Complaint m05.79 m15.0 z79.899 Chief Complaint M05.79 Chief Complaint Pre-Op Clearance B-12 SHOT b12 Chief Complaint B-12 SHOT b12 b12 Chief Complaint B-12 SHOT b12 b12 Medicare Wellness Reason for Visit IFG (impaired fastin g glucose) Lumbar spondylosis Lung nodule MGUS (monoclonal gammopathy of unknown significance) Nicotine addiction Rheumatoid arthritis in remission Medicare annual wellness visit, subsequent Screening PSA (prostate specific antigen) Chief Complaint b12 b12 Medicare Wellness See order Reason for Visit IFG (impaired fastin g glucose) Lumbar spondylosis Lung nodule MGUS (monoclonal gammopathy of unknown significance) Nicotine addiction Rheumatoid arthritis in remission Medicare annual wellness visit, subsequent Screening PSA (prostate specific antigen) Chief Complaint b12 b12 Medicare Wellness See order B12 Shot Reason for Visit IFG (impaired fastin g glucose) Lumbar spondylosis Lung nodule MGUS (monoclonal gammopathy of unknown significance) Nicotine addiction Rheumatoid arthritis in remission Medicare annual wellness visit, subsequent Screening PSA (prostate specific antigen) Chief Complaint b12 Medicare Wellness See order B12 Shot B12 Shot Reason for Visit IFG (impaired fastin g glucose) Lumbar spondylosis Lung nodule MGUS (monoclonal gammopathy of unknown significance) Nicotine addiction Rheumatoid arthritis in remission Medicare annual wellness visit, subsequent Screening PSA (prostate specific antigen) Chief Complaint Medicare Wellness See order B12 Shot B12 Shot B12 Shot Reason for Visit IFG (impaired fastin g glucose) Lumbar spondylosis Lung nodule MGUS (monoclonal gammopathy of unknown significance) Nicotine addiction Rheumatoid arthritis in remission Medicare annual wellness visit, subsequent Screening PSA (prostate specific antigen) Chief Complaint B12 Shot B12 Shot b12 shot Reason for Visit B12 deficiency Chief Complaint B12 Shot b12 shot B12 shot Reason for Visit B12 deficiency Chief Complaint Admit Date B12 shot December 25, 2023 2 :30pm b12 shot/flu shot January 28, 2024 2 :31pm b12 shot March 08, 2024 3 :37pm Reason for Visit Admit Date Pernicious anemia December 25, 2023 2 :30pm Chief Complaint Admit Date b12 shot/flu shot January 28, 2024 2 :31pm b12 shot March 08, 2024 3 :37pm pre surgical clearance March 25 11:27am Reason for Visit Admit Date IFG (impaired fasting glucose) February 262024 11:27am Nicotine addiction March 25, 2024 1 1:27am Rheumatoid arthritis in remission Valeria kaylie 2024 11:27am Preop exam for internal medicine March 25, 2024 11:27am Additional Source Comments (unrecognized sect ion and content) No Status Records FoundNo Status Records FoundNo Status Records FoundNo Status Records FoundNo Status Records Found INFORMATION SOURCE (unrecogn ized section and content) DATE CREATED AUTHOR 03/04/2018 [facility] DATE CREATED AUTHOR AUTHOR'S ORGANIZ ATION 11/26/2021 [facility] DATE CREATED AUTHOR AUTHOR'S ORGANIZ ATION 12/01/2022 [facility] DATE CREATED AUTHOR AUTHOR'S ORGANIZ ATION 08/20/2023 [facility] DATE CREATED AUTHOR AUTHOR'S ORGANIZ ATION 03/09/2024 [facility] EPIC Care Teams (unrecognized sec tion and content) Team Status: Inactive Member Role Status Dates Chuck Sanchez DO Primary Care Provider Active Enrico Rojas MD Attending Provider Active Team Status: Active Member Role Status Dates Chuck Sanchez DO Primary Care Provider Active Team Status: Inactive Member Role Status Dates Chuck Sanchez DO Primary Care Provider Active Madhuri Strickland NP-C Attending Provider Active 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 Specialty Start Date End Date Chuck Sanchez MD [address] [place] [id number] PCP - General Internal Medicine 08/16/22 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 Specialty Start Date End Date Chuck Sanchez MD [address] [place] [id number] PCP - General Internal Medicine 08/16/22 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 Specialty Start Date End Date Chuck Sanchez MD [address] [place] [phone] PCP - General Internal Medicine 08/16/22 Team Status: Inactive Member Role Status Dates Chuck Sanchez DO Attending Provider Active Sta rt: March 18, 2023 End: March 18, 2023 Team Status: Inactive Member Role Status Dates Chuck Sanchez DO Primary Care Provide r, Attending Provider Active Start: May 05, 2023 End: May 05, 2023 Team Status: Inactive Member Role Status Dates Chuck Sanchez DO Primary Care Provide r, Attending Provider Active Start: June 06, 2023 End: June 06, 2023 Team Status: Inactive Member Role Status Dates Chuck Sanchez DO Primary Care Provide r, Attending Provider Active Start: July 15, 2023 End: July 15, 2023 Team Status: Inactive Member Role Status Dates Chuck Sanchez DO Primary Care Provide r, Attending Provider Active Start: July 29, 2023 End: July 29, 2023 Team Status: Inactive Member Role Status Dates Chuck Sanchez DO Primary Care Provider Active Start: August 06, 2023 End: August 06, 2023 Estuardo Rojas MD Attending Provider Active St art: August 06, 2023 End: August 06, 2023 Team Status: Active Member Role Status Dates Chuck Sanchez DO Primary Care Provide r, Attending Provider Active Start: August 11, 2023 Team Status: Inactive Member Role Status Dates Chuck Sanchez DO Primary Care Provide r, Attending Provider Active Start: August 15, 2023 End: August 15, 2023 Team Status: Inactive Member Role Status Dates Chuck Sanchez DO Primary Care Provide r, Attending Provider Active Start: September 16, 2023 End: September 16, 2023 Team Status: Inactive Member Role Status Dates Chuck Sanchez DO Primary Care Provide r, Attending Provider Active Start: October 20, 2023 End: October 20, 2023 Team Status: Inactive Member Role Status Dates Chuck Sanchez DO Primary Care Provide r, Attending Provider Active Start: November 21, 2023 End: November 21, 2023 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 Specialty Start Date End Date Chuck Sanchez MD [address] [place] [phone] PCP - General Internal Medicine 08/16/22 Team Status: Inactive Member Role Status Dates Chuck Sanchez DO Primary Care Provider Active Start: December 25, 2023 End: December 25, 2023 Dalia Jenkins MD Attending Provider Active St art: December 25, 2023 End: December 25, 2023 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 Specialty Start Date End Date Chuck Sanchez MD [address] [place] [address] PCP - General Internal Medicine 08/16/22 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 Specialty Start Date End Date Chuck Sanchez MD [address] [facility] [place] [address] PCP - General Internal Medicine 08/16/22 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 Specialty Start Date End Date Chuck Sanchez MD [address] [facility] [place] [address] PCP - General Internal Medicine 08/16/22 Team Status: Inactive Member Role Status Dates Chuck Sanchez DO Primary Care Provide r, Attending Provider Active Start: January 28, 2024 End: January 28, 2024 Team Status: Inactive Member Role Status Dates Chuck Sanchez DO Primary Care Provide r, Attending Provider Active Start: March 08, 2024 End: March 08, 2024 Team Status: Inactive Member Role Status Dates Chuck Sanchez DO Primary Care Provide r, Attending Provider Active Start: March 25, 2024 End: March 25, 2024 Goals (unrecognized section and content) Goals may be documented in a n alternate sectionGoals may be documented in an alternate sectionGoals may be documented in an alternate sectionNo InformationNo InformationNo InformationGoals may be documented in an alternate sectionNo InformationNo InformationNo InformationNo InformationNo InformationGoals may be documented in an alternate sectionNo InformationNo InformationNo InformationNo InformationNo InformationNo InformationNo Information No data available for this sectionNo InformationNo InformationGoals may be documented in an alternate sectionGoals may be documented in an alternate sectionGoals may be documented in an alternate sectionGoals may be documented in an alternate sectionGoals may be documented in an alternate sectionGoals may be documented in an alternate sectionGoals may be documented in an alternate sectionGoals may be documented in an alternate sectionGoals may be documented in an alternate sectionGoals may be documented in an alternate sectionGoals may be documented in an alternate section REASON FOR VISIT (unrecogniz ed section and content) Reason Comments Foot/ankle Post-op WK 1 post op - RT martell llux Reason Comments Foot Callouses B/L callus Reason Comments Foot Callouses B/L calluses Reason Comments Foot Callouses LT foot callus, disc uss surgery for LT foot FOR RECORDS PERTAINING TO PATIENTS WHO ARE OR HAVE BEEN ENROLLED IN A CHEMICAL DEPENDENCY/SUBSTANCEABUSE PROGRAM, SOME INFORMATION MAY BE OMITTED. This clinical summary was aggregated from multiple sources. Caution should be exercised in using it in the provision of clinical care. This summary normalizes information from multiple sources, and as a consequence, information in this document may materially change the coding, format and clinical context of patient data. In addition, data may be omitted in some cases. CLINICAL DECISIONS SHOULD BE BASED ON THE PRIMARY CLINICAL RECORDS. [facility] [employer] [facility]. provides no warranty or guarantee of the accuracy or completeness of information in this document.
[2024-04-07 14:34] LABS: Basophils Percent Auto 0.5 % (0.2-2.0); Eosinophils Absolute Auto 0.2 10^3/uL (0.0-0.7); Eosinophils Percent Auto 2.6 % (0.9-7.0); Hematocrit 42.6 % (42.0-54.0); Hemoglobin 14.1 g/dL (14.0-18.0); Immature Granulocytes Abs Auto 0.04 10^3/uL (0.00-0.03); Immature Granulocytes Pct Auto 0.5 % (0.0-0.5); Lymphocytes Absolute Auto 1.6 10^3/uL (1.2-3.8); Lymphocytes Percent Auto 20.7 % (20.5-60.0); Mean Corpuscular HGB Conc 33.1 g/dL (29.9-35.2); Mean Corpuscular Hemoglobin 31.3 pg (25.9-34.0); Mean Corpuscular Volume 94.5 fL (80.0-94.0); Mean Platelet Volume 9.5 fL (9.5-13.5); Monocytes Percent Auto 12.3 % (1.7-12.0); Neutrophils Percent Auto 63.4 % (43.0-75.0); Platelet Count 189 10^3/uL (150-450); Red Blood Count 4.51 10^6/uL (4.70-6.10); Red Cell Distribution Width 12.4 % (11.0-15.0); White Blood Count 7.8 10^3/uL (4.0-11.0)
[2024-04-07 14:58] LABS: Anion Gap 8.5; BUN Creatinine Ratio 20.2; Calcium 8.9 mg/dL (8.5-10.1); Carbon Dioxide 30.8 mmol/L (21.0-32.0); Chloride 105 mmol/L (98-107); Estimated GFR (African America >60 (>=60 mL/min/1.73m^2); Estimated GFR (Non-African Ame >60 (>=60 mL/min/1.73m^2); Glucose 106 mg/dL (74-106); Potassium 4.3 mmol/L (3.5-5.1); Sodium 140 mmol/L (136-145)
== END 2024-04-07 14:11 | disposition home or self-care (01) ==
LOC: LAB 14:11
PROVIDERS: PCP Internal Medicine; Visit Provider Podiatrist Foot & Ankle Surgery
DX: Z01.812 Encounter for preprocedural laboratory examination (principal); Z01.818 Encounter for other preprocedural examination
CPT/HCPCS: 36415; 80048; 85025

== ENCOUNTER 2024-07-30 11:01 | Emergency (ER) | payer MEDICARE, OTHER, SELFPAY ==
--- OUTSIDE RECORDS SUMMARY | 2024-07-21 11:10 | XMS_ITS | Encounter Summary ---
Author Organization [facility] Address [address] [place] [address] Care Team Providers Care Child And Family Therapist Name Role Phone Chuck Sanchez DO Primary Care Provider [phone] Reason for Visit * Reason Comments Foot/ankle Post-op WK 10 post op Encounter Details Date Type Department Care Team (Late st Contact Info) Description 07/21/2024 11:10 AM EDT Office Visit [facility] [address] [place] [phone] Liban Santos, DPM FACFAS [address] [facility] [place] [address] Acquired hallux valgus, left (Primary Dx); Metatarsal deformity, left Social History Tobacco Use Types Packs/Day Years Used Date Smoking Tobacco: Never Smokeless Tobacco: Never Tobacco Cessation:Counseling Given: Yes Alcohol Use Standard Drinks/Week Comments Never 0 (1 standard drink = 0.6 oz pur e alcohol) Sex and Gender Information Value Date Recorded Sex Assigned at Not on file Legal Sex Male 7:14 PM EDT Gender Identity Not on file Sexual Orientation Not on file documented as of this encounter Last Filed Vital Signs Vital Sign Reading Time Taken Comments Blood Pressure 132/75 07/21/2024 11:15 AM EDT Pulse 72 07/21/2024 11:15 AM EDT Temperature - - Respiratory Rate - - Oxygen Saturation - - Inhaled Oxygen Concentration - - Weight 79.4 kg (175 lb) 07/21/2024 11:15 AM EDT Height 172.7 cm (5' 8 ) 07/21/2024 11:15 AM EDT Body Mass Index 26.61 07/21/2024 11:15 AM EDT documented in this encounter Progress Notes * HILARY Kirkland - 07/21/2024 11:10 AM EDT Patient: Joo Luciano : 1950 PCP: Chuck Sanchez DO SUBJECTIVE This is a 74 y.o. male that presents today 10 weeks left s/p Pathak bunionectomy with kwire and [place] metatarsal head resection. Pt denies n/f/v/c and has minimal pain to post op site. Pt states that they have been keeping dressing dry and intact and have been weightbearing in a normal shoe. Allergies: No Known Allergies Past Medical History: Past Medical History: Diagnosis Date Abscess of foot 11/27/2022 Anemia pernicious Arthritis Deformity of metatarsal 11/27/2022 Rheumatoid arthritis ([facility]) Medications: Current Outpatient Medications: methotrexate 2.5 MG tablet, TAKE 7 TABLETS BY MOUTH ONCE A WEEK, Disp: , Rfl: ROS: General: denies fever, chills, fatigue, malaise OBJECTIVE LE EXAM: Derm: Sutures intact to left foot with negative erythema, negative drainage, positiveedema with negative clinical signs of infection.Vascular: Palpable pedal pulses to left foot excellent position and alignment Neuro: Gross sensation intact to left foot. Musculoskeletal: Negative pain on palpation toleft calf. Ortho: Ankle range of motion less than 10 degrees of dorsiflexion at left ankle joint. Rectus left hallux. ASSESSMENT 1. Acquired hallux valgus, left 2. Metatarsal deformity, left PLAN Patient was progressing very well continue with regular shoe gear follow up with me in 1 month he is progressing very well happy with the outcome of the surgery. HILARY Kirkland documented in this encounter Plan of Treatment Upcoming Encounters Date Type Department Care Team (Late st Contact Info) Description 08/18/2024 11:00 AM EDT Office Visit [facility] [address] [place] [address] Liban Santos DPM FACFAS [address] [place] [address] documented as of this encounter Visit Diagnoses Diagnosis Acquired hallux valgus, left- Primary Metatarsal deformity, left documented in this encounter Care Teams Child And Family Therapist Relationship Specialty Start Date End Date Chuck Sanchez DO [address] [place] [address] PCP - General Internal Medicine 08/16/22 documented as of this encounter
--- OUTSIDE RECORDS SUMMARY | 2024-07-30 11:10 | XMS_ITS | Encounter Summary ---
Author Organization [facility] Address [address] [place] [address] Care Team Providers Care Word Processing Machine Operator Name Role Phone Chuck Sanchez DO Primary Care Provider [phone] Encounter Details Date Type Department Care Team (Late st Contact Info) Description 03/14/2023 Abstract [facility] [address] [place] [address] Sondra Sanchez MA Social History Tobacco Use Types Packs/Day Years Used Date Smoking Tobacco: Never Smokeless Tobacco: Never Alcohol Use Standard Drinks/Week Comments Never 0 (1 standard drink = 0.6 oz pur e alcohol) Sex and Gender Information Value Date Recorded Sex Assigned at Not on file Legal Sex Male 7:14 PM EDT Gender Identity Not on file Sexual Orientation Not on file documented as of this encounter Plan of Treatment Upcoming Encounters Date Type Department Care Team (Late Contact Info) Description 08/18/2024 11:00 AM EDT Office Visit [facility] [address] [place] [address] Liban Santos, DPM FACFAS [address] [facility] [place], [place] [phone] documented as of this encounter Visit Diagnoses Not on filedocumented in this encounter Care Teams Word Processing Machine Operator Relationship Specialty Start Date End Date Chuck Sanchez DO [address] [place] [phone] PCP - General Internal Medicine 08/16/22 documented as of this encounter
--- OUTSIDE RECORDS SUMMARY | 2024-07-30 11:10 | XMS_ITS | Encounter Summary ---
Author Organization [facility] Address [address] [place] [address] Care Team Providers Care Patrol Police Lieutenant Name Role Phone Chuck Sanchez DO Primary Care Provider [phone] Encounter Details Date Type Department Care Team ([facility] Contact Info) Description 05/13/2024 Abstract [facility] [address] [place] [address] Liban Santos, DPM FACFAS [address] [place] [address] Social History Tobacco Use Types Packs/Day Years [...] EDT Office Visit [facility] [address] [place] [address] Liban Santos, DPM FACFAS [address] [place] [address] documented as of this encounter Visit Diagnoses Not on filedocumented in this encounter Care Teams Patrol Police Lieutenant Relationship Specialty Start Date End Date Chuck Sanchez DO [address] [facility] [place] [address] PCP - General Internal Medicine 08/16/22 documented as of this encounter
--- OUTSIDE RECORDS SUMMARY | 2024-07-30 11:10 | XMS_ITS | Encounter Summary ---
Author Organization [facility] Address [address] [place] [address] Care Team Providers Care Twister In Name Role Phone Chuck Sanchez DO Primary Care Provider [phone] Encounter Details Date Type Department Care Team (Late st Contact Info) Description 03/13/2023 Abstract [facility] [address] [place] [phone] Sondra Sanchez MA Social History Tobacco Use [...] EDT Office Visit [facility] [address] [place] [phone] Liban Santos, DPM FACFAS [address] [facility] [place], [place] [phone] documented as of this encounter Visit Diagnoses Not on filedocumented in this encounter Care Teams Twister In Relationship Specialty Start Date End Date Chuck Sanchez DO [address] [place] [address] PCP - General Internal Medicine 08/16/22 documented as of this encounter
--- OUTSIDE RECORDS SUMMARY | 2024-07-30 11:10 | XMS_ITS | Encounter Summary ---
Author Organization [facility] Address [address] [place] [address] Care Team Providers Care Process Operator Name Role Phone Chuck Sanchez DO Primary Care Provider [phone] Encounter Details Date Type Department Care Team ([facility] Contact Info) Description 07/21/2024 Bamboo flowsheet [facility] [address] [place] [address] Liban Santos, DPM FACFAS [address] [place] [address] Social History Tobacco Use Types Packs/Day Years [...] EDT Office Visit [facility] [address] [place] [address] Liban Santos, DPM FACFAS [address] [place] [address] documented as of this encounter Visit Diagnoses Not on filedocumented in this encounter Care Teams Process Operator Relationship Specialty [place] [address] [place] [phone] PCP - General Internal Medicine 08/16/22 documented as of this encounter
--- OUTSIDE RECORDS SUMMARY | 2024-07-30 11:10 | XMS_ITS | Clinical Summary ---
Author Organization [facility] Address [address] [place] [address] Care Team Providers Care Seismic Prospecting Observer Name Role Phone Chuck Sanchez Primary Care Provider [phone] Allergies No known active allergies Medications methotrexate 2.5 mg tablet Take 15 mg by mouth every Friday. Active folic acid 1 mg tablet Take 1 mg by mouth once daily. Active Social History Tobacco Use Types Packs/Day Years Used Date Smoking Tobacco: Every Day Cigarettes Smokeless Tobacco: Never Alcohol Use Standard Drinks/Week Comments Not Asked 0 (1 standard drink = 0.6 oz pur e alcohol) Sex and Gender Information Value Date Recorded Sex Assigned at Not on file Legal Sex Male 9:32 AM EDT Gender Identity Not on file Sexual Orientation Not on file Last Filed Vital Signs Vital Sign Reading Time Taken Comments Blood Pressure 126/90 01/06/2015 1:54 PM EST Pulse 99 01/06/2015 1:54 PM EST Temperature 36.6 C (97.9 F) 01/06/2015 1:54 PM EST Respiratory Rate 18 01/06/2015 1:54 PM EST Oxygen Saturation - - Inhaled Oxygen Concentration - - Weight 75.6 kg (166 lb 9.6 oz) 01/06/2015 1:54 P M EST Height 174 cm (5' 8.5 ) 01/06/2015 1:54 PM EST Body Mass Index 24.96 01/06/2015 1:54 PM EST Plan of Treatment Health Maintenance Due Date Last Done Comments Abdominal Aortic Aneurysm Screening 1950 Anxiety Screening 1970 Depression Screening 1970 Hepatitis C Screening 1970 DTaP,Tdap,Td Vaccine (1 - Tdap) 05/03/1971 Lipid Screening 05/03/1987 CT Colonography 1997 Cologuard (FIT-DNA) 1997 Colonoscopy 1997 Colorectal Cancer Screening 1997 Diabetes Screening 1997 Fecal Occult Blood 1997 Sigmoidoscopy 1997 Shingrix Vaccine (2 of 2) 04/17/2018 02/20/2018 Pneumococcal Vaccine: 50+ (2 of 2 - PPSV23) 02/05/2019 02/05/2018 Covid-19 Vaccine ( season) 2023 Advance Directive Discussion 02/25/2024 Influenza Vaccine (Season Ended) 2024 12/12/2017, 11/27/2016, 12/01/2015 RSV Vaccine (1 - 1-dose 75+ series) 05/03/2027 Insurance MEDICARE [place] [id number] Care Teams Seismic Prospecting Observer Relationship Specialty Start Date End Date Chuck Sanchez DO PCP - General Internal Medicine 10/03/14
--- OUTSIDE RECORDS SUMMARY | 2024-07-30 11:10 | XMS_ITS | Clinical Summary ---
Author Organization [facility] Address [address] [place] [address] Care Team Providers Care Spiral Runner Name Role Phone Chuck Sanchez Primary Care Provider [phone] Allergies No known active allergies Medications methotrexate 2.5 MG tablet TAKE 7 TABLETS BY MOUTH ONCE A WEEK 07/16/2022 Active Active Problems Problem Noted Date Diagnosed Date Rheumatoid arthritis 01/08/2023 Resolved Problems Problem Noted Date Diagnosed Date Resolved Date Abscess of foot 11/27/2022 11/27/2022 Deformity of metatarsal 11/27/2022 100 05/2022 Encounters Date Type Department Care Team Description 07/21/2024 11:10 AM EDT Office Visit [facility] [address] [place] [address] Liban Santos, DPM FACFAS Acquired hallux valgus, left (Primary Dx); Metatarsal deformity, left 07/21/2024 Bamboo flowsheet [facility] [address] [place] [address] Liban Santos, DPM FACFAS 06/23/2024 10:40 AM EDT Office Visit [facility] [address] [place] [address] Liban Santos, DPM FACFAS Acquired hallux valgus, left (Primary Dx); Metatarsal deformity, left 06/23/2024 Bamboo flowsheet [facility] [address] [place] [address] Liban Santos, DPM FACFAS 06/09/2024 10:20 AM EDT Office Visit [facility] [address] [place] [address] Liban Santos, DPM FACFAS Acquired hallux valgus, left (Primary Dx); Left foot pain; Metatarsal deformity, left; 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 ([facility]) 06/09/2024 10:15 AM EDT Ancillary Procedure [facility] [address] [facility] [place] [address] 06/09/2024 Bamboo flowsheet [facility] [address] [place] [address] Liban Santos, DPM FACFAS 06/02/2024 10:50 AM EDT Office Visit [facility] [address] [facility] [place] [address] Liban Santos, DPM FACFAS Pain due to internal orthopedic prosthetic device, initial encounter ([facility]) (Primary Dx) 06/02/2024 Telephone [facility] [address] [place] [address] Mony Child Medication 06/02/2024 Bamboo flowsheet [facility] [address] [place] [address] Liban Santos, DPM FACFAS 05/26/2024 11:30 AM EDT Office Visit [facility] [address] [place] [address] Liban Santos, DPM FACFAS Acquired hallux valgus, left (Primary Dx); Metatarsal deformity, left; 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 ([facility]) 05/26/2024 Bamboo flowsheet [facility] [address] [place] [address] Liban Santos, DPM FACFAS 05/20/2024 4:10 PM EDT Office Visit [facility] [address] [phone] Bao Barrios, DPM Acquired hallux valgus, left (Primary Dx); Metatarsal deformity, left; 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 (CMS/HCC) ; Contracture of left ankle 05/20/2024 3:55 PM EDT Ancillary Procedure [facility] [address] [address] 05/20/2024 Bamboo flowsheet [facility] [address] [address] Bao Barrios, DPRayray 05/20/2024 Travel 05/13/2024 Abstract [facility] [address] [place] [address] Liban Santos, DPM FACFAS 05/12/2024 Telephone [facility] [address] [place] [address] Liban Santos, DPM FACFAS 05/10/2024 9:30 AM EDT Office Visit [facility] [address] [place] [address] Liban Santos, DPM FACFAS 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 (CMS/HCC) (Primary Dx); Metatarsal deformity, left; Acquired hallux valgus, left 05/10/2024 Bamboo flowsheet [facility] [address] [place] [address] Liban Santos, DPM FACFAS from Last 3 Months Family History Medical History Relation Name Comments myocardial infraction Father Relation Name Status Comments Father Social History Tobacco Use Types Packs/Day Years [...] AM EDT Temperature - - Respiratory Rate 18 05/20/2024 3:26 PM EDT Oxygen Saturation - - Inhaled Oxygen Concentration - - Weight 79.4 kg (175 lb) 07/21/2024 11:15 AM EDT Height 172.7 cm (5' 8 ) 07/21/2024 11:15 AM EDT Body Mass Index 26.61 07/21/2024 11:15 AM EDT Plan of Treatment Upcoming Encounters Date Type Department Care Team (Late st Contact Info) Description 08/18/2024 11:00 AM EDT Office Visit [facility] [address] [place] [address] Liban Santos, DPM FACFAS [address] [place] [address] Health Maintenance Due Date Last Done Comments CT Colonography 1950 Colonoscopy 1950 FIT 1950 FOBT 1950 Sigmoidoscopy 1950 Pneumococcal Vaccine: 65+ Ye ars (2 of 2 - PPSV23) 02/05/2019 02/05/2018 Colorectal Cancer Screening 08/30/2025 FIT-DNA 08/30/2025 08/30/2022, 06/22/2019 Influenza Vaccine Completed 01/28/2024, , 12/12/2017, Additional history exists Procedures Procedure Name Priority Date/Time Associated Diagnosis Comments XR FOOT 3+ VIEWS LEFT Routine 06/09/2024 10:14 AM EDT Left foot pain Metatarsal deformity, left Acquired hallux valgus, left XR FOOT 3+ VIEWS LEFT Routine 05/20/2024 3:52 PM EDT Metatarsal deformity, left from Last 3 Months Results * XR foot 3+ views left (06/09/2024 10:14 AM EDT) Only the most recent of2 resultswithin the time period is included. Anatomical Region Laterality Modality Lower Extremities, Foot Left Radiogra phic Imaging Narrative 06/09/2024 11:03 PM EDT Imaging Result: Three views were taken today AP/MO/LAT foot: No fractures or dislocations seen excellent position alignment of the great toe joint as well surgery metatarsal resection Liban Santos DPM FACFAS IMG XR PROCEDURES Final Result from Last 3 Months Insurance MEDICARE [facility] [employer] Care Teams Spiral Runner Relationship Specialty Start Date End Date Chuck Sanchez DO [address] [facility] [place] [address] PCP - General Internal Medicine 08/16/22
--- OUTSIDE RECORDS SUMMARY | 2024-07-30 11:10 | XMS_ITS | Encounter Summary ---
Author Organization [facility] Address [address] [place] [address] Care Team Providers Care Medical Registrar Name Role Phone Chuck Sanchez DO Primary Care Provider [phone] Encounter Details Date Type Department Care Team ([facility] Contact Info) Description 11/24/2022 Abstract [facility] [address] [place] [address] Liban Santos, DPM FACFAS [address] [place] [address] Social History Tobacco Use Types Packs/Day Years Used Date Smoking Tobacco: Never Smokeless Tobacco: Never Tobacco Cessation:Counseling Given: Not Answered Alcohol Use Standard Drinks/Week Comments Never 0 (1 standard drink = 0.6 oz pur e alcohol) Sex and Gender Information Value Date Recorded Sex Assigned at Not on file Legal Sex Male 7:14 PM EDT Gender Identity Not on file Sexual Orientation Not on file documented as of this encounter Plan of Treatment Upcoming Encounters Date Type Department Care Team ([facility] Contact Info) Description 08/18/2024 11:00 AM EDT Office Visit [facility] [address] [place] [address] Liban Santos, DPM FACFAS [address] [place] [address] documented as of this encounter Visit Diagnoses Not on filedocumented in this encounter Care Teams Medical Registrar Relationship Specialty Start Date End Date Chuck Sanchez DO [address] [place] [address] PCP - General Internal Medicine 08/16/22 documented as of this encounter
[2024-07-30 11:20] VITALS: BP 158/94; PULSE 85; TEMP 36.4; O2SAT 100; BMI 24.8
[2024-07-30 12:02] LABS: Bilirubin Urine NEGATIVE (NEGATIVE); Blood Urine TRACE-I (NEGATIVE); Clarity Urine CLEAR (CLEAR); Color Urine LT. YELLOW (YELLOW); Glucose Urine UA NEGATIVE (NEGATIVE); Ketones Urine NEGATIVE (NEGATIVE); Leukocyte Esterase Urine NEGATIVE (NEGATIVE); Nitrite Urine NEGATIVE (NEGATIVE); Protein Urine TRACE mg/dL (NEG/TRACE); Specific Gravity Urine 1.015 (1.005-1.025); Urobilinogen Urine 0.2 EU/dL (0.2-1.0); pH Urine 6.5 (5.0-9.0)
[2024-07-30 12:16] LABS: Basophils Percent Auto 0.2 % (0.2-2.0); Eosinophils Percent Auto 0.2 % (0.9-7.0); Hematocrit 44.7 % (42.0-54.0); Hemoglobin 15.5 g/dL (14.0-18.0); Immature Granulocytes Abs Auto 0.05 10^3/uL (0.00-0.03); Immature Granulocytes Pct Auto 0.4 % (0.0-0.5); Lymphocytes Absolute Auto 1.2 10^3/uL (1.2-3.8); Lymphocytes Percent Auto 9.3 % (20.5-60.0); Mean Corpuscular HGB Conc 34.7 g/dL (29.9-35.2); Mean Corpuscular Hemoglobin 31.6 pg (25.9-34.0); Monocytes Absolute Auto 0.8 10^3/uL (0.3-0.8); Monocytes Percent Auto 6.7 % (1.7-12.0); Neutrophils Absolute Auto 10.2 10^3/uL (1.4-6.5); Neutrophils Percent Auto 83.2 % (43.0-75.0); Platelet Count 252 10^3/uL (150-450); Red Blood Count 4.91 10^6/uL (4.70-6.10); Red Cell Distribution Width 11.9 % (11.0-15.0); White Blood Count 12.3 10^3/uL (4.0-11.0)
[2024-07-30 12:21] LABS: Bacteria Urine MODERATE #/HPF (NONE SEEN); Mucus Urine LARGE (NONE SEEN); RBC Urine 0-2 #/HPF (0-2); WBC Urine 0-2 #/HPF (NONE SEEN)
[2024-07-30 12:22] LABS: Cast Seen? NONE SEEN #/LPF (NONE SEEN); Crystals Seen? None Seen #/HPF (None Seen); Squamous Epithelial Cell Urine FEW #/LPF (NONE/RARE); Urine Culture Indicated YES-FRMC
--- NOTE | 2024-07-30 12:23 | XR_ITS ---
The [address] [address] Patient Name: CORINE LAWTON MRN: [id number] date: 1950 Sex: M Assigned Patient Location: ER Current Patient Location: ER Accession/Order Number: [id number] Exam Date: 07/30/2024 12:51 Report Date: 07/30/2024 12:54 At the request of: SANDY ESCAMILLA NP Procedure: XR hip RT 2V w/ pelvis CLINICAL DATA: Pain at the left hip for the past day and low back intermittently for 4 months. No injury. LUMBAR SPINE - 3 views COMPARISON: None AP as well as lateral lumbar and lumbosacral views were obtained. There is osteopenia. Thoracolumbar dextroscoliotic curvature is noted. There are no suspected acute compression fractures. Minor retrolisthesis of L2 on L3 and L3 on L4 is seen. There is multilevel disc space narrowing with endplate sclerosis and spurring. There is lower lumbar facet hypertrophy. The SI joints are intact. No paraspinal soft tissue abnormalities are present. XR/XR lumbar spine 2-3V IMPRESSION: OSTEOPENIA, SCOLIOSIS AND MULTILEVEL DEGENERATIVE CHANGES. RIGHT HIP WITH AP PELVIS - 3 views COMPARISON: None available AP view of the pelvis as well as AP and frog-lateral views of the right hip were obtained. No fracture or dislocation is identified. The hip joint spaces are maintained. There is no significant arthritic disease. A tiny herniation pit is seen at the head neck junction on the right femur. No soft tissue abnormalities are present. IMPRESSION: NO ACUTE BONY FINDINGS. Impression dictated by: Jolene Montiel M.D. 07/30/2024 12:54 PM Dictation Location: [place] [address] Electronically authenticated by: [id number] Y Date: 07/30/2024 12:54
--- NOTE | 2024-07-30 12:23 | XR_ITS ---
The [address] [address] Patient Name: CORINE LAWTON MRN: [id number] date: 1950 Sex: M Assigned Patient Location: ER Current Patient Location: Accession/Order Number: [id number] Exam Date: 07/30/2024 12:51 Report Date: 07/30/2024 12:54 At the request of: SANDY ESCAMILLA NP Procedure: XR hip RT 2V w/ pelvis CLINICAL DATA: Pain at the left hip for the past day and low back intermittently for 4 months. No injury. LUMBAR SPINE - 3 views COMPARISON: None AP as well as lateral lumbar and lumbosacral views were obtained. There is osteopenia. Thoracolumbar dextroscoliotic curvature is noted. There are no suspected acute compression fractures. Minor retrolisthesis of L2 on L3 and L3 on L4 is seen. There is multilevel disc space narrowing with endplate sclerosis and spurring. There is lower lumbar facet hypertrophy. The SI joints are intact. No paraspinal soft tissue abnormalities are present. XR/XR hip RT 2V w/ pelvis IMPRESSION: OSTEOPENIA, SCOLIOSIS AND MULTILEVEL DEGENERATIVE CHANGES. RIGHT HIP WITH AP PELVIS - 3 views COMPARISON: None available AP view of the pelvis as well as AP and frog-lateral views of the right hip were obtained. No fracture or dislocation is identified. The hip joint spaces are maintained. There is no significant arthritic disease. A tiny herniation pit is seen at the head neck junction on the right femur. No soft tissue abnormalities are present. IMPRESSION: NO ACUTE BONY FINDINGS. Impression dictated by: Jolene Montiel M.D. 07/30/2024 12:54 PM Dictation Location: [place] [address] Electronically authenticated by: [id number] Y Date: 07/30/2024 12:54
[2024-07-30 12:35] LABS: Alanine Aminotransferase 18 U/L (16-63); Albumin Globulin Ratio 0.8; Albumin Level 3.5 g/dL (3.4-5.0); Alkaline Phosphatase 86 U/L (46-116); Anion Gap 11.5; Aspartate Amino Transferase 17 U/L (15-37); BUN Creatinine Ratio 17.9; Bilirubin Total 0.5 mg/dL (0.2-1.0); Calcium 9.5 mg/dL (8.5-10.1); Carbon Dioxide 28.4 mmol/L (21.0-32.0); Chloride 97 mmol/L (98-107); Estimated GFR (African America >60 (>=60 mL/min/1.73m^2); Estimated GFR (Non-African Ame >60 (>=60 mL/min/1.73m^2); Globulin 4.5 g/dL; Glucose 138 mg/dL (74-106); Potassium 3.9 mmol/L (3.5-5.1); Sodium 133 mmol/L (136-145)
[2024-07-30] MEDS: HYDROCODONE/ACET 5-325 MG TABLET 1 TAB PO (12:46)
--- NOTE | 2024-07-30 12:51 | ED_ITS ---
Documented by User: Andrew Coel NP 07/30/24 13:23 HPI HPI - General Adult General Chief complaint: Abdominal Pain Stated complaint: PAIN IN SIDE Time Seen by Provider: 07/30/24 12:13 Source: patient Mode of arrival: walk-in History of Present Illness HPI narrative: Patient is a 74-year-old male who presents to the emergency department today for evaluation concerns for lower back pain with radiation to his hip. He endorses this pain began yesterday and states it is worse with movement including laying down. Denies any radiation of pain down his right leg. He denies any injuries or prior surgeries to his back. No saddle anesthesia or concerns with bowel/bladder function. Denies any paresthesias, weakness, loss of movement to his lower extremities. Historically no fevers or malignancy. He does endorse a history of rheumatoid arthritis and was previously on methotrexate and did see a grain thresher out of [place]. He states he stopped the methotrexate a month ago when he had surgery on his right foot. He reports he did take some Aleve last night which did minimally improve some of the pain in his back. No abdominal pain or nausea/vomiting. Related Data Home Medications ?Medication ?Instructions ?Recorded ?Confirmed dorzolamide 22.3 mg-timolol 6.8 1 drp ophthalmic (eye) BID 07/30/24 07/30/24 mg/mL eye drops latanoprost 0.005 % eye drops 1 drp ophthalmic (eye) Q AM 07/30/24 07/30/24 Previous Rx's ?Medication ?Instructions ?Recorded cyclobenzaprine 10 mg tablet 10 mg PO TID PRN muscle s pasm #10 07/30/24 tabs hydrocodone 5 mg-acetaminophen 325 1 tab PO Q6H PRN pa in #7 tabs 07/30/24 mg tablet methylprednisolone 4 mg tablets in 4 mg PO DAILY #21 e a 07/30/24 a dose pack (Medrol (Miguelito)) Allergies Allergy/AdvReac Type Severity Reaction Status Date / Time No Known Drug Allergies Allergy Verified 07/30/24 11:43 Review of Systems ROS Status of ROS 10 or more systems reviewed and unremark able except as noted in history and below PFSH PFSH Social History Little interest or pleasure in doing things: not at all Feeling down, depressed, or hopeless: not at all Exam Narrative Exam Narrative: Constituational: Awake/ alert, no apparent distress, well hydrated HENMT: normocephalic, external ears normal, moist oral mucous membranes and oropharynx normal Eyes: EOMI and conjunctivae normal Neck: ROM intact Chest: inspection of chest normal Respiratory: Normal respiratory effort, clear to auscultation bilaterally Cardio: regular rate and regular rhythm GI: soft to palpation and non-tender Back: + Mild discomfort over R lower lumbar/SI region with radiation of pain laterally over anterior R hip/groin, no vertebral tenderness, no CVA tenderness, otherwise normal inspection of back MSK: ROM intact, normal inspection of B/L LE, +NVI Skin: no rashes or petechiae Neuro: no focal deficits Psych: mental status grossly normal Constitutional Vital Signs, click to edit/add: Last Vital Signs Temp 97.6 F 07/30/24 11:20 Pulse 85 07/30/24 11:20 Resp 20 07/30/24 11:20 BP 158/94 H 07/30/24 11:20 Pulse Ox 100 07/30/24 11:20 O2 Del Method Room Air 07/30/24 11:20 Course Vital Signs Vital signs: Vital Signs Temperature 97.6 F 07/30/24 11:20 Pulse Rate 85 07/30/24 11:20 Respiratory Rate 07/30/24 11:20 Blood Pressure 158/94 H 07/30/24 11:20 Pulse Oximetry 100 07/30/24 11:20 Oxygen Delivery Method Room Air 07/30/24 11:20 Temperature 97.6 F 07/30/24 11:20 Pulse Rate 85 07/30/24 11:20 Respiratory Rate 07/30/24 11:20 Blood Pressure 158/94 H 07/30/24 11:20 Pulse Oximetry 100 07/30/24 11:20 Oxygen Delivery Method Room Air 07/30/24 11:20 Medical Decision Making [facility] Narrative Medical decision making narrative: The patient is a well-appearing 74-year-old male who presented to the emergency department today for evaluation concerns for back pain with radiation to his right hip. Emanation without any concerning neurovascular motor findings on exam. Patient additionally had expressed concerns for back pain to be kidney pain . Patient with noted pain directly over right SI region that lateralizes her to the right hip. Directly pain is not colicky and there were no associated abdominal symptoms of nausea or vomiting or urinary symptoms. Low clinical suspicion for kidney stone despite urinalysis showing trace occult blood. There is presence of bacteria in the urine however this may be contamination of urine sample. Will hold off on any antibiotics for now and wait for urine culture. Patient was seen during ED surge volume and protocol labs were ordered by nursing including a CBC and CMP. Overall these labs are stable. Her examination and history the pain does appear more musculoskeletal and x-ray imaging of the lumbar spine and right hip and pelvis were obtained that had no critical findings otherwise did show degenerative changes. Patient did receive supportive measures of Dugger and on reevaluation he reported some improvement in pain. Clinical impression back pain. Discussed these findings with the patient including recommendations for supportive care. Will discharge home with Medrol Dosepak in addition to cyclobenzaprine and Dugger. Follow-up with patient's primary care provider for reevaluation. Additionally encouraged reestablishing care with his grain thresher due to history of RA previously taking methotrexate. Discussed signs and symptoms of any worsening condition and when to consider reevaluation by the emergency department. Patient verbalized an understanding of this and is agreeable with the plan to be discharged home. Medical Records Medical records reviewed: Yes I reviewed the patient's medical records Lab Data Lab results reviewed: Yes I reviewed the patient's lab results Labs: Lab Results 07/30/24 07/30/24 Range/Units 11:27 11:55 WBC 12.3 H (4.0-11.0) 10^3/uL RBC 4.91 (4.70-6.10) 10^6/uL Hgb 15.5 (14.0-18.0) g/dL Hct 44.7 (42.0-54.0) % MCV 91.0 (80.0-94.0) fL MCH 31.6 (25.9-34.0) pg MCHC 34.7 (29.9-35.2) g/dL RDW 11.9 (11.0-15.0) % Plt Count 252 (150-450) 10^3/uL MPV 10.0 (9.5-13.5) fL Neut % (Auto) 83.2 H (43.0-75.0) % Lymph % (Auto) 9.3 L (20.5-60.0) % [place] % (Auto) 6.7 (1.7-12.0) % Eos % (Auto) 0.2 L (0.9-7.0) % Baso % (Auto) 0.2 (0.2-2.0) % Neut # (Auto) 10.2 H (1.4-6.5) 10^3/uL Lymph # (Auto) 1.2 (1.2-3.8) 10^3/uL [place] # (Auto) 0.8 (0.3-0.8) 10^3/uL Eos # (Auto) 0.0 (0.0-0.7) 10^3/uL Baso # (Auto) 0.0 (0.0-0.1) 10^3/uL Abs Immat Gran (auto) 0.05 H (0.00-0.03) 10^3/uL Imm/Tot Granulo (auto) 0.4 (0.0-0.5) % Sodium 133 L (136-145) mmol/L Potassium 3.9 (3.5-5.1) mmol/L Chloride 97 L (98-107) mmol/L Carbon Dioxide 28.4 (21.0-32.0) mmol/L Anion Gap 11.5 BUN 14.0 (7.0-18.0) mg/dL Creatinine 0.78 (0.70-1.30) mg/dL Est GFR ( Amer) >60 (>=60 mL/min/1.73m^2) Est GFR (Non-Af Amer) >60 (>=60 mL/min/1.73m^2) BUN/Creatinine Ratio 17.9 Glucose 138 H (74-106) mg/dL Calcium 9.5 (8.5-10.1) mg/dL Total Bilirubin 0.5 (0.2-1.0) mg/dL AST 17 (15-37) U/L ALT 18 (16-63) U/L Alkaline Phosphatase 86 (46-116) U/L Total Protein 8.0 (6.4-8.2) g/dL Albumin 3.5 (3.4-5.0) g/dL Globulin 4.5 g/dL Albumin/Globulin Ratio 0.8 Urine Color Lt. yellow (YELLOW) Urine Clarity Clear (CLEAR) Urine pH 6.5 (5.0-9.0) Ur Specific [place] 1.015 (1.005-1.025) Urine Protein Trace (NEG/TRACE) mg/dL Urine Glucose (UA) Negative (NEGATIVE) mg/dL Urine Ketones Negative (NEGATIVE) mg/dL Urine Occult Blood Trace-i (NEGATIVE) Urine Nitrite Negative (NEGATIVE) Urine Bilirubin Negative (NEGATIVE) Urine Urobilinogen 0.2 (0.2-1.0) EU/dL Ur Leukocyte Esterase Negative (NEGATIVE) Urine RBC 0-2 (0-2) #/HPF Urine WBC 0-2 A (NONE SEEN) #/HPF Ur Squamous Epith Cells Few A (NONE/RARE) #/LPF Urine Crystals None seen (None Seen) #/HPF Urine Bacteria Moderate A (NONE SEEN) #/HPF Urine Casts None seen (NONE SEEN) #/LPF Urine Mucus Large A (NONE SEEN) Ur [place] [place] XR lumbar spine: Attestation: I have reviewed the pertinent imaging results. Radiologist's impression: ITS Impressions Hip/Pelvis X-Ray 07/30/24 12:23 IMPRESSION: OSTEOPENIA, SCOLIOSIS AND MULTILEVEL DEGENERATIVE CHANGES. RIGHT HIP WITH AP PELVIS - 3 views COMPARISON: None available AP view of the pelvis as well as AP and frog-lateral views of the right hip were obtained. No fracture or dislocation is identified. The hip joint spaces are maintained. There is no significant arthritic disease. A tiny herniation pit is seen at the head neck junction on the right femur. No soft tissue abnormalities are present. IMPRESSION: NO ACUTE BONY FINDINGS. Impression dictated by: Jolene Montiel M.D. 07/30/2024 12:54 PM Dictation Location: [place] [address] Electronically authenticated by: [id number] Y Date: 07/30/2024 12:54 Lumbar Spine X-Ray 07/30/24 12:23 IMPRESSION: OSTEOPENIA, SCOLIOSIS AND MULTILEVEL DEGENERATIVE CHANGES. RIGHT HIP WITH AP PELVIS - 3 views COMPARISON: None available AP view of the pelvis as well as AP and frog-lateral views of the right hip were obtained. No fracture or dislocation is identified. The hip joint spaces are maintained. There is no significant arthritic disease. A tiny herniation pit is seen at the head neck junction on the right femur. No soft tissue abnormalities are present. IMPRESSION: NO ACUTE BONY FINDINGS. Impression dictated by: Jolene Montiel M.D. 07/30/2024 12:54 PM Dictation Location: [facility] Electronically authenticated by: [id number] Y Date: 07/30/2024 12:54 XR Right hip/ pelvis: Attestation: I have reviewed the pertinent imaging results. Radiologist's impression: ITS Impressions Hip/Pelvis X-Ray 07/30/24 12:23 IMPRESSION: OSTEOPENIA, SCOLIOSIS AND MULTILEVEL DEGENERATIVE CHANGES. RIGHT HIP WITH AP PELVIS - 3 views COMPARISON: None available AP view of the pelvis as well as AP and frog-lateral views of the right hip were obtained. No fracture or dislocation is identified. The hip joint spaces are maintained. There is no significant arthritic disease. A tiny herniation pit is seen at the head neck junction on the right femur. No soft tissue abnormalities are present. IMPRESSION: NO ACUTE BONY FINDINGS. Impression dictated by: Jolene Montiel M.D. 07/30/2024 12:54 PM Dictation Location: [facility] Electronically authenticated by: [id number] Y Date: 07/30/2024 12:54 Lumbar Spine X-Ray 07/30/24 12:23 IMPRESSION: OSTEOPENIA, SCOLIOSIS AND MULTILEVEL DEGENERATIVE CHANGES. RIGHT HIP WITH AP PELVIS - 3 views COMPARISON: None available AP view of the pelvis as well as AP and frog-lateral views of the right hip were obtained. No fracture or dislocation is identified. The hip joint spaces are maintained. There is no significant arthritic disease. A tiny herniation pit is seen at the head neck junction on the right femur. No soft tissue abnormalities are present. IMPRESSION: NO ACUTE BONY FINDINGS. Impression dictated by: Jolene Montiel M.D. 07/30/2024 12:54 PM Dictation Location: [facility] Electronically authenticated by: [id number] Y Date: 07/30/2024 12:54 Discharge Plan Discharge Chief Complaint: Abdominal Pain Clinical Impression: Back pain Patient Disposition: Home, Self-Care Prescriptions / Home Meds: New methylprednisolone [Medrol (Miguelito)] 4 mg tablets,dose pack 4 mg PO DAILY Qty: 21 0RF Rx Instructions: Per instructions on package cyclobenzaprine 10 mg tablet 10 mg PO TID PRN (Reason: muscle spasm) Qty: 10 0RF hydrocodone-acetaminophen 5-325 mg tablet 1 tab PO Q6H PRN (Reason: pain) Qty: 7 0RF No Action dorzolamide-timolol 22.3-6.8 mg/mL drops 1 drp OPHTHALMIC (EYE) BID latanoprost 0.005 % drops 1 drp OPHTHALMIC (EYE) QAM Print Language: Norwegian Instructions: Acute Low Back Pain (ED) Additional Instructions: Tylenol and ibuprofen as needed for any pain. Take Medrol Dosepak as prescribed. May take Flexeril as needed for any muscle spasms. May take Dugger as needed for severe pain. Rest, ice any sore areas. Please up with your primary care provider for reevaluation. Consider reestablishing care with your grain thresher. Referrals: Chuck Sanchez DO [Primary Care Provider, Internal Medicine] - 1 week Discharge Date/Time: 07/30/24 13:34 Documented by User: Jonah Marcial MD 07/30/24 20:01 HPI HPI - General Adult General Chief complaint: Abdominal Pain Stated complaint: PAIN IN SIDE Time Seen by Provider: 07/30/24 12:13 Related Data Home Medications ?Medication ?Instructions ?Recorded ?Confirmed dorzolamide 22.3 mg-timolol 6.8 1 drp ophthalmic (eye) BID 07/30/24 07/30/24 mg/mL eye drops latanoprost 0.005 % eye drops 1 drp ophthalmic (eye) Q AM 07/30/24 07/30/24 Previous Rx's ?Medication ?Instructions ?Recorded cyclobenzaprine 10 mg tablet 10 mg PO TID PRN muscle s pasm #10 07/30/24 tabs hydrocodone 5 mg-acetaminophen 325 1 tab PO Q6H PRN pa in #7 tabs 07/30/24 mg tablet methylprednisolone 4 mg tablets in 4 mg PO DAILY #21 e a 07/30/24 a dose pack (Medrol (Miguelito)) Allergies Allergy/AdvReac Type Severity Reaction Status Date / Time No Known Drug Allergies Allergy Verified 07/30/24 11:43 PFSH PFSH Social History Little interest or pleasure in doing things: not at all Feeling down, depressed, or hopeless: not at all Exam Constitutional Vital Signs, click to edit/add: Last Vital Signs Temp 97.6 F 07/30/24 11:20 Pulse 85 07/30/24 11:20 Resp 20 07/30/24 11:20 BP 158/94 H 07/30/24 11:20 Pulse Ox 100 07/30/24 11:20 O2 Del Method Room Air 07/30/24 11:20 Course Vital Signs Vital signs: Vital Signs Temperature 97.6 F 07/30/24 11:20 Pulse Rate 85 07/30/24 11:20 Respiratory Rate 20 07/30/24 11:20 Blood Pressure 158/94 H 07/30/24 11:20 Pulse Oximetry 100 07/30/24 11:20 Oxygen Delivery Method Room Air 07/30/24 11:20 Temperature 97.6 F 07/30/24 11:20 Pulse Rate 85 07/30/24 11:20 Respiratory Rate 20 07/30/24 11:20 Blood Pressure 158/94 H 07/30/24 11:20 Pulse Oximetry 100 07/30/24 11:20 Oxygen Delivery Method Room Air 07/30/24 11:20 Medical Decision Making [facility] Narrative Medical decision making narrative: The patient is a well-appearing 74-year-old male who presented to the emergency department today for evaluation concerns for back pain with radiation to his right hip. Emanation without any concerning neurovascular motor findings on exam. Patient additionally had expressed concerns for back pain to be kidney pain . Patient with noted pain directly over right SI region that lateralizes her to the right hip. Directly pain is not colicky and there were no associated abdominal symptoms of nausea or vomiting or urinary symptoms. Low clinical suspicion for kidney stone despite urinalysis showing trace occult blood. There is presence of bacteria in the urine however this may be contamination of urine sample. Will hold off on any antibiotics for now and wait for urine culture. Patient was seen during ED surge volume and protocol labs were ordered by nursing including a CBC and CMP. Overall these labs are stable. Her examination and history the pain does appear more musculoskeletal and x-ray imaging of the lumbar spine and right hip and pelvis were obtained that had no critical findings otherwise did show degenerative changes. Patient did receive supportive measures of Dugger and on reevaluation he reported some improvement in pain. Clinical impression back pain. Discussed these findings with the patient including recommendations for supportive care. Will discharge home with Medrol Dosepak in addition to cyclobenzaprine and Dugger. Follow-up with patient's primary care provider for reevaluation. Additionally encouraged reestablishing care with his grain thresher due to history of RA previously taking methotrexate. Discussed signs and symptoms of any worsening condition and when to consider reevaluation by the emergency department. Patient verbalized an understanding of this and is agreeable with the plan to be discharged home. I, Dr Marcial, have reviewed the above progress note and course of action in the ER; agree with the above. I have personally gone over history and physical, and discussed disposition and treatment plan with the PA. Lab Data Labs: Lab Results 07/30/24 07/30/24 Range/Units 11:27 11:55 WBC 12.3 H (4.0-11.0) 10^3/uL RBC 4.91 (4.70-6.10) 10^6/uL Hgb 15.5 (14.0-18.0) g/dL Hct 44.7 (42.0-54.0) % MCV 91.0 (80.0-94.0) fL MCH 31.6 (25.9-34.0) pg MCHC 34.7 (29.9-35.2) g/dL RDW 11.9 (11.0-15.0) % Plt Count 252 (150-450) 10^3/uL MPV 10.0 (9.5-13.5) fL Neut % (Auto) 83.2 H (43.0-75.0) % Lymph % (Auto) 9.3 L (20.5-60.0) % [place] % (Auto) 6.7 (1.7-12.0) % Eos % (Auto) 0.2 L (0.9-7.0) % Baso % (Auto) 0.2 (0.2-2.0) % Neut # (Auto) 10.2 H (1.4-6.5) 10^3/uL Lymph # (Auto) 1.2 (1.2-3.8) 10^3/uL [place] # (Auto) 0.8 (0.3-0.8) 10^3/uL Eos # (Auto) 0.0 (0.0-0.7) 10^3/uL Baso # (Auto) 0.0 (0.0-0.1) 10^3/uL Abs Immat Gran (auto) 0.05 H (0.00-0.03) 10^3/uL Imm/Tot Granulo (auto) 0.4 (0.0-0.5) % Sodium 133 L (136-145) mmol/L Potassium 3.9 (3.5-5.1) mmol/L Chloride 97 L (98-107) mmol/L Carbon Dioxide 28.4 (21.0-32.0) mmol/L Anion Gap 11.5 BUN 14.0 (7.0-18.0) mg/dL Creatinine 0.78 (0.70-1.30) mg/dL Est GFR ( Amer) >60 (>=60 mL/min/1.73m^2) Est GFR (Non-Af Amer) >60 (>=60 mL/min/1.73m^2) BUN/Creatinine Ratio 17.9 Glucose 138 H (74-106) mg/dL Calcium 9.5 (8.5-10.1) mg/dL Total Bilirubin 0.5 (0.2-1.0) mg/dL AST 17 (15-37) U/L ALT 18 (16-63) U/L Alkaline Phosphatase 86 (46-116) U/L Total Protein 8.0 (6.4-8.2) g/dL Albumin 3.5 (3.4-5.0) g/dL Globulin 4.5 g/dL Albumin/Globulin Ratio 0.8 Urine Color Lt. yellow (YELLOW) Urine Clarity Clear (CLEAR) Urine pH 6.5 (5.0-9.0) Ur Specific [place] 1.015 (1.005-1.025) Urine Protein Trace (NEG/TRACE) mg/dL Urine Glucose (UA) Negative (NEGATIVE) mg/dL Urine Ketones Negative (NEGATIVE) mg/dL Urine Occult Blood Trace-i (NEGATIVE) Urine Nitrite Negative (NEGATIVE) Urine Bilirubin Negative (NEGATIVE) Urine Urobilinogen 0.2 (0.2-1.0) EU/dL Ur Leukocyte Esterase Negative (NEGATIVE) Urine RBC 0-2 (0-2) #/HPF Urine WBC 0-2 A (NONE SEEN) #/HPF Ur Squamous Epith Cells Few A (NONE/RARE) #/LPF Urine Crystals None seen (None Seen) #/HPF Urine Bacteria Moderate A (NONE SEEN) #/HPF Urine Casts None seen (NONE SEEN) #/LPF Urine Mucus Large A (NONE SEEN) Ur Culture Indicated? [place] [place] XR lumbar spine: Radiologist's impression: ITS Impressions Hip/Pelvis X-Ray 07/30/24 12:23 IMPRESSION: OSTEOPENIA, SCOLIOSIS AND MULTILEVEL DEGENERATIVE CHANGES. RIGHT HIP WITH AP PELVIS - 3 views COMPARISON: None available AP view of the pelvis as well as AP and frog-lateral views of the right hip were obtained. No fracture or dislocation is identified. The hip joint spaces are maintained. There is no significant arthritic disease. A tiny herniation pit is seen at the head neck junction on the right femur. No soft tissue abnormalities are present. IMPRESSION: NO ACUTE BONY FINDINGS. Impression dictated by: Jolene Montiel M.D. 07/30/2024 12:54 PM Dictation Location: [facility] Electronically authenticated by: [id number] Y Date: 07/30/2024 12:54 Lumbar Spine X-Ray 07/30/24 12:23 IMPRESSION: OSTEOPENIA, SCOLIOSIS AND MULTILEVEL DEGENERATIVE CHANGES. RIGHT HIP WITH AP PELVIS - 3 views COMPARISON: None available AP view of the pelvis as well as AP and frog-lateral views of the right hip were obtained. No fracture or dislocation is identified. The hip joint spaces are maintained. There is no significant arthritic disease. A tiny herniation pit is seen at the head neck junction on the right femur. No soft tissue abnormalities are present. IMPRESSION: NO ACUTE BONY FINDINGS. Impression dictated by: Jolene Montiel M.D. 07/30/2024 12:54 PM Dictation Location: [facility] Electronically authenticated by: [id number] Y Date: 07/30/2024 12:54 XR Right hip/ pelvis: Radiologist's impression: ITS Impressions Hip/Pelvis X-Ray 07/30/24 12:23 IMPRESSION: OSTEOPENIA, SCOLIOSIS AND MULTILEVEL DEGENERATIVE CHANGES. RIGHT HIP WITH AP PELVIS - 3 views COMPARISON: None available AP view of the pelvis as well as AP and frog-lateral views of the right hip were obtained. No fracture or dislocation is identified. The hip joint spaces are maintained. There is no significant arthritic disease. A tiny herniation pit is seen at the head neck junction on the right femur. No soft tissue abnormalities are present. IMPRESSION: NO ACUTE BONY FINDINGS. Impression dictated by: Jolene Montiel M.D. 07/30/2024 12:54 PM Dictation Location: [facility] Electronically authenticated by: [id number] Y Date: 07/30/2024 12:54 Lumbar Spine X-Ray 07/30/24 12:23 IMPRESSION: OSTEOPENIA, SCOLIOSIS AND MULTILEVEL DEGENERATIVE CHANGES. RIGHT HIP WITH AP PELVIS - 3 views COMPARISON: None available AP view of the pelvis as well as AP and frog-lateral views of the right hip were obtained. No fracture or dislocation is identified. The hip joint spaces are maintained. There is no significant arthritic disease. A tiny herniation pit is seen at the head neck junction on the right femur. No soft tissue abnormalities are present. IMPRESSION: NO ACUTE BONY FINDINGS. Impression dictated by: Jolene Montiel M.D. 07/30/2024 12:54 PM Dictation Location: [facility] Electronically authenticated by: [id number] Y Date: 07/30/2024 12:54 Discharge Plan Discharge Chief Complaint: Abdominal Pain Clinical Impression: Back pain Patient Disposition: Home, Self-Care Prescriptions / Home Meds: New methylprednisolone [Medrol (Miguelito)] 4 mg tablets,dose pack 4 mg PO DAILY Qty: 21 0RF Rx Instructions: Per instructions on package cyclobenzaprine 10 mg tablet 10 mg PO TID PRN (Reason: muscle spasm) Qty: 10 0RF hydrocodone-acetaminophen 5-325 mg tablet 1 tab PO Q6H PRN (Reason: pain) Qty: 7 0RF No Action dorzolamide-timolol 22.3-6.8 mg/mL drops 1 drp OPHTHALMIC (EYE) BID latanoprost 0.005 % drops 1 drp OPHTHALMIC (EYE) QAM Print Language: Norwegian Instructions: Acute Low Back Pain (ED) Additional Instructions: Tylenol and ibuprofen as needed for any pain. Take Medrol Dosepak as prescribed. May take Flexeril as needed for any muscle spasms. May take Dugger as needed for severe pain. Rest, ice any sore areas. Please up with your primary care provider for reevaluation. Consider reestablishing care with your grain thresher. Referrals: Chuck Sanchez DO [Primary Care Provider, Internal Medicine] - 1 week Discharge Date/Time: 07/30/24 13:34
== END 2024-07-30 13:34 | disposition home or self-care (01) ==
PROVIDERS: Emergency Provider Emergency Medicine; PCP Internal Medicine
DX: M54.50 Low back pain, unspecified (principal); M06.9 Rheumatoid arthritis, unspecified; M85.88 Other specified disorders of bone density and structure, other site; M25.551 Pain in right hip; R82.998 Other abnormal findings in urine
CPT/HCPCS: 36415; 72100; 73502; 80053; 80076; 81001; 83605; 83690; 84484; 85025; 87086; 99284

== ENCOUNTER 2024-08-25 12:47 | Outpatient (OUT) | payer MEDICARE, OTHER, SELFPAY ==
--- OUTSIDE RECORDS SUMMARY | 2024-08-18 11:00 | XMS_ITS | Encounter Summary ---
Author Organization [facility] Address [address] [place] [address] Care Team Providers Care Seo Consultant Name Role Phone Chuck Sanchez DO Primary Care Provider Reason for Visit * Reason Comments Follow-up F/U B/L foot check Encounter Details Date Type Department Care Team (Late st Contact Info) Description 08/18/2024 11:00 AM EDT Office Visit [facility] [address] [place] [address] Liban Santos, DPM FACFAS [address] [facility] [place] [address] Neoplasm of uncertain behavior of skin (Primary Dx); Verruca plantaris; Left foot pain Social History Tobacco Use Types Packs/Day Years [...] Sign Reading Time Taken Comments Blood Pressure 130/72 08/18/2024 11:23 AM EDT Pulse 71 08/18/2024 11:23 AM EDT Temperature - - Respiratory Rate - - Oxygen Saturation - - Inhaled Oxygen Concentration - - Weight 79.4 kg (175 lb) 08/18/2024 11:23 AM EDT Height 172.7 cm (5' 8 ) 08/18/2024 11:23 AM EDT Body Mass Index 26.61 08/18/2024 11:23 AM EDT documented in this encounter Progress Notes * Liban Santos DPM FACFAS - 08/18/2024 11:00 AM EDT Images from the original note were not included. Patient: Joo Luciano : 1950 PCP: Chuck Sanchez, DO SUBJECTIVE This is a 74 y.o. male that presents today with a chief complaint of a painful lesion plantar aspect of the foot. They state the lesion has been slow growing and has multipled. The area is painful and causes marked limitation in ambulation secondary to the pain. They have attempted pybz-xqv-qzmdbkvpten- inflammatory medications as well as rpoy-bws-wwdpucq wart treatment to no avail. Allergies: No Known Allergies Past Medical History: Active Ambulatory Problems Diagnosis Date Noted Rheumatoid arthritis (HCC) 01/08/2023 Resolved Ambulatory Problems Diagnosis Date Noted Abscess of foot 11/27/2022 Deformity of metatarsal 11/27/2022 Past Medical History: Diagnosis Date Anemia Arthritis Medications: Current Outpatient Medications: methotrexate 2.5 MG [...] lesion. The lesions are multiple and sporadic. VASC: DP /PT were palpable bilateral. Capillary refill time < 3 seconds Digits 1-5 bilateral NEURO: [place] Gab 5.07 monofilament was intact B/L. Vibratory sensation was intact B/L Musculoskeletal: Muscle strength was +5 over 5 all intrinsic and extrinsic muscles tested. ASSESSMENT No diagnosis found. PLAN Patient was educated on the etiology of the plantar neoplasm. We discussed surgical versus conservative options. From a surgical standpoint we discussed excision with pathological examination versus Chemo -lytic treatment. Today I debrided the lesions to the level of pinpoint bleeding. I applied anapplication of 60 percent salicylic acid to the lesions. Covered with an occlusive dressing. Liban Santos DPM FACPAT documented in this encounter Plan of Treatment Upcoming Encounters Date Type Department Care Team (Late st Contact Info) Description 09/17/2024 11:00 AM EDT Office Visit [facility] [address] [place] [address] Liban Santos DPM FACFAS [address] [place] [address] documented as of this encounter Visit Diagnoses Diagnosis Neoplasm of uncertain behavior of skin- Primary Verruca plantaris Plantar wart Left foot pain Pain in soft tissues of limb documented in this encounter Care Teams Seo Consultant Relationship Specialty Start Date End Date Chuck Sanchez DO [address] [place] [phone] PCP - General Internal Medicine 08/16/22 documented as of this encounter
--- OUTSIDE RECORDS SUMMARY | 2024-08-19 06:36 | XMS_ITS | Continuity of Care Document ---
Author Organization [facility] Address [address] [place] [address] Phone Care Team Providers Care Product Safety And Standards Engineer Name Role Phone Chuck Sanchez DO Primary Care Provider [phone] Christen Gunter APRN Attending Provider Chuck Sanchez DO Attending Provider [phone] Jonah Marcial DO Attending Provider Dalia Jenkins MD Attending Provider Care Teams Patient Care Team Team Status: Active Member Role Status Dates Chuck Sanchez DO Primary Care Provider Active Visit Care Team Team Status: Inactive Member Role Status Dates Chuck Sanchez DO Primary Care Provider Active Start: May 31, 2024 End: May 31, 2024 Christen Gunter APRN VENUE ATTENDANT-C Attending Provider Act liban Start: May 31, 2024 End: May 31, 2024 Visit Care Team Team Status: Inactive Member Role Status Dates Chuck Sanchez DO Primary Care Provider Active Start: July 05, 2024 End: July 05, 2024 Chuck Sanchez DO Attending Provider Active Sta rt: July 05, 2024 End: July 05, 2024 Visit Care Team Team Status: Active Member Role Status Dates Chuck Sanchez DO Primary Care Provider Active Start: July 30, 2024 Jonah Marcial DO Attending Provider Active Start : July 30, 2024 Visit Care Team Team Status: Inactive Member Role Status Dates Chuck Sanchez DO Primary Care Provider Active Start: August 12, 2024 End: August 12, 2024 Dalia Jenkins MD Attending Provider Active St art: August 12, 2024 End: August 12, 2024 Patient Care Team Team Status: Inactive Member Role Status Dates Chuck Sanchez DO Primary Care Provider Active Start: August 19, 2024 End: August 19, 2024 Chuck Sanchez DO Attending Provider Active Sta rt: August 19, 2024 End: August 19, 2024 Chief Complaint and Reason for Visit Chief Complaint Admit Date B12 shot May 31, 2024 2:52 pm B12 shot July 05, 2024 2:52p m b12 shot August 12, 2024 3:29 pm Wellness August 19, 2024 10:0 0am Reason for Visit Admit Date Pernicious anemia May 31, 2024 2:52 pm Pernicious anemia August 12, 2024 3:29 pm IFG (impaired fasting glucose) July 10:00am 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) August 19, 2024 10:00am Lumbar spondylosis August 19, 2024 10:0 0am Lung nodule August 19, 2024 10:0 0am Nicotine addiction August 19, 2024 10:0 0am Rheumatoid arthritis in remission July 262024 10:00am MGUS (monoclonal gammopathy of unknown s ignificance) August 19, 2024 10:00am Medicare annual wellness visit, subseque nt August 19, 2024 10:00am Screening PSA (prostate specific antigen ) August 19, 2024 10:00am Allergies, Adverse Reactions, Alerts Allergen Type Severity Reaction Last Updated Verified Status No Known Allergies Allergy Unknown August 19, 2024 10:01 am Yes Active Social History Smoking Status Status Start Date End Date Date of Observa tion Smokes tobacco daily (finding) August 19, 2024 10:07am Observation Status Observation Response Date of Response Legal Sex Male (finding) Sex Assigned At Male 1950 Family History Relationship Condition Age at Onset Recorded Date/T tammy brother Unknown daughter Malignant neoplasm Unknown Unknown father Heart disease Unknown Unknown mother Diabetes mellitus Unknown Problems Active Problems Medical Problem Onset Date Status Comments Rheumatoid arthritis in remission Unknown Active Nicotine addiction Unknown Active IgM monoclonal gammopathy of undetermined significance (MGUS) Unknown Active IgM 329 , [place] 34.3, K/L 1.67 (M spike unclear) - 07/2023 Screening PSA (prostate spec ific antigen) Unknown Active Pernicious anemia Unknown Active Hypercholesterolemia Unknown Active IFG (impaired fasting glucose) Unknown Active Lung nodule Unknown Active LDCT w/o suspic ious nodules - 07/2021, 07/2022, 07/2023 Elevated BP without diagnosi s of hypertension Unknown Active Lumbar spondylosis Unknown Active Medications Medication Status Dose Units Route Directions Qty Days St art Date Stop Date End Date Instructions Adherence Cyanocobala min (Vitamin B-12) 1,000 mcg/15 mL liquid Active 1000 MCG PO every month July 29, 2023 12:00a m Complies with drug therapy Folic Acid 1 mg tablet Discont inued 1 TAB PO Daily July 29, 2023 12:00a m July 29, 2023 1:55p m FreeTextSi tablet Orally Once a day; Note: Source Status: Continue; Provider: Daniel Woods ( ) Tramadol 50 mg tablet Discont inued 1 TAB PO Every 6 hours July 29, 2023 12:00a m July 29, 2023 1:55p m FreeTextSi tablet as needed Orally every 6 hrs; Note: Source Status: Taking; Provider: Daniel Woods ( ) Methotrexat e Sodium 2.5 mg tablet Discont inued 2.5 MG PO every week July 29, 2023 12:00a m Feb 2024 12:49 pm Folic Acid 1 mg tablet Discont inued 1 MG PO Daily July 29, 2023 1:54pm Feb 2024 12:49 pm Tramadol 50 mg tablet Discont inued 50 MG PO Every 6 hours July 29, 2023 1:55pm [facility] 2024 12:50 pm Immunizations Immunization Event Date Not Given Reason Dose Number Charrer Lot Number Vaccine Information Statement (VIS) Detail Administration Location COVID-19 mRNA, Comirnaty (AirXP) April 24, 2020 COVID-19 mRNA, Comirnaty (AirXP) May 16, 2020 COVID-19 mRNA, Comirnaty (AirXP) December 26, 2020 Fluzone TIV High-Dose [id number] January 28, 2024 [id number] [facility] influenza, unspecified formulation December 12, 2017 influenza, unspecified formulation December 14, 2018 influenza, unspecified formulation December 07, 2019 influenza, unspecified formulation December 11, 2020 influenza, unspecified formulation December 03, 2021 influenza, unspecified formulation December 23, 2022 Pneumococcal Conjugate Vaccine, 13 valent February 05, 2018 Pneumococcal Polysacc. Vaccine, 23 valent June 09, 2019 Zoster Vaccine Recombinant, Adjuvanted February 20, 2018 Zoster Vaccine Recombinant, Adjuvanted April 24, 2018 Tetanus, Diphtheria adult, 5 Lf pres free abs December 13, 2013 Tetanus, Diphtheria adult, 5 Lf pres free abs December 01, 2015 Tetanus, Diphtheria adult, 5 Lf pres free abs November 27, 2016 Relevant Diagnostic Tests and/or Laboratory Data Laboratory Results Test Collection Date/Time Result Date/Time Result Interpretation Reference Range Result Comment Performing Site Urine Culture Reflexed July 30, 2024 11:27am [facility] Anion Gap July 30, 2024 11:55am July 30, 2024 11:55am 11.5 Basophils # (Auto) July 30, 2024 11:55am July 30, 2024 11:55am 0.0 10 3/uL 0.0-0.1 Urine Other Casts July 30, 2024 11:27am NONE SEEN #/LPF NONE SEEN Albumin/Radha bulin Ratio July 30, 2024 11:55am July 30, 2024 11:55am 0.8 Basophils (%) (Auto) July 30, 2024 11:55am July 30, 2024 11:55am 0.2 % 0.2-2.0 Urine Other Crystals July 30, 2024 11:27am None Seen #/HPF None Seen Albumin July 30, 2024 11:55am July 30, 2024 11:55am 3.5 g/dL 3.4-5.0 Eosinophils # (Auto) July 30, 2024 11:55am July 30, 2024 11:55am 0.0 10 3/uL 0.0-0.7 Urine Bacteria July 30, 2024 11:27am MODERATE #/HPF Abnormal (applies to non-numeric results) NONE SEEN Alkaline Phosphatase July 30, 2024 11:55am July 30, 2024 11:55am 86 U/L 46-116 Eosinophils (%) (Auto) July 30, 2024 11:55am July 30, 2024 11:55am 0.2 % Below low normal 0.9-7.0 Urine Bilirubin July 30, 2024 11:27am NEGATIVE NEGATIVE Alanine Aminotransf erase (ALT/SGPT) July 30, 2024 11:55am July 30, 2024 11:55am 18 U/L 16-63 Hematocrit July 30, 2024 11:55am July 30, 2024 11:55am 44.7 % 42.0-54.0 Urine Occult Blood July 30, 2024 11:27am TRACE-I NEGATIVE Aspartate Amino Transf (AST/SGOT) July 30, 2024 11:55am July 30, 2024 11:55am 17 U/L 15-37 Hemoglobin July 30, 2024 11:55am July 30, 2024 11:55am 15.5 g/dL 14.0-18.0 Urine Appearance July 30, 2024 11:27am CLEAR CLEAR BUN/Creatin ine Ratio July 30, 2024 11:55am July 30, 2024 11:55am 17.9 Immature Granulocyte # (Auto) July 30, 2024 11:55am July 30, 2024 11:55am 0.05 10 3/uL Above high normal 0.00-0.03 Urine Color July 30, 2024 11:27am LT. YELLOW YELLOW Blood Urea Nitrogen July 30, 2024 11:55am July 30, 2024 11:55am 14.0 mg/dL 7.0-18.0 Immature Granulocyte % (Auto) July 30, 2024 11:55am July 30, 2024 11:55am 0.4 % 0.0-0.5 Urine Glucose (UA) July 30, 2024 11:27am NEGATIVE mg/dL NEGATIVE Calcium Level July 30, 2024 11:55am July 30, 2024 11:55am 9.5 mg/dL 8.5-10.1 Lymphocytes # (Auto) July 30, 2024 11:55am July 30, 2024 11:55am 1.2 10 3/uL 1.2-3.8 Urine Ketones July 30, 2024 11:27am NEGATIVE mg/dL NEGATIVE Chloride Level July 30, 2024 11:55am July 30, 2024 11:55am 97 mmol/L Below low normal 98-107 Lymphocytes (%) (Auto) July 30, 2024 11:55am July 30, 2024 11:55am 9.3 % Below low normal 20.5-60.0 Urine Leukocyte Esterase July 30, 2024 11:27am NEGATIVE NEGATIVE Carbon Dioxide Level July 30, 2024 11:55am July 30, 2024 11:55am 28.4 mmol/L 21.0-32.0 Mean Corpuscular Hemoglobin July 30, 2024 11:55am July 30, 2024 11:55am 31.6 pg 25.9-34.0 Urine Mucus July 30, 2024 11:27am LARGE Abnormal (applies to non-numeric results) NONE SEEN Creatinine July 30, 2024 11:55am July 30, 2024 11:55am 0.78 mg/dL 0.70-1.30 Mean Corpuscular Hemoglobin Concent July 30, 2024 11:55am July 30, 2024 11:55am 34.7 g/dL 29.9-35.2 Urine Nitrite July 30, 2024 11:27am NEGATIVE NEGATIVE Estimated GFR () July 30, 2024 11:55am July 30, 2024 11:55am >60 >=60 mL/min/1.7 3m 2 Mean Corpuscular Volume July 30, 2024 11:55am July 30, 2024 11:55am 91.0 fL 80.0-94.0 Urine pH July 30, 2024 11:27am 6.5 5.0-9.0 Estimated GFR (Non-Faith n Mongolian July 30, 2024 11:55am July 30, 2024 11:55am >60 >=60 mL/min/1.7 3m 2 Monocytes # (Auto) July 30, 2024 11:55am July 30, 2024 11:55am 0.8 10 3/uL 0.3-0.8 Urine Protein July 30, 2024 11:27am TRACE mg/dL NEG/TRACE Globulin July 30, 2024 11:55am July 30, 2024 11:55am 4.5 g/dL Monocytes (%) (Auto) July 30, 2024 11:55am July 30, 2024 11:55am 6.7 % 1.7-12.0 Urine RBC July 30, 2024 11:27am 0-2 #/HPF 0-2 Glucose Level July 30, 2024 11:55am July 30, 2024 11:55am 138 mg/dL Above high normal 74-106 Mean Platelet Volume July 30, 2024 11:55am July 30, 2024 11:55am 10.0 fL 9.5-13.5 Urine Specific [place] July 30, 2024 11:27am 1.015 1.005-1.02 5 Potassium Level July 30, 2024 11:55am July 30, 2024 11:55am 3.9 mmol/L 3.5-5.1 Neutrophils # (Auto) July 30, 2024 11:55am July 30, 2024 11:55am 10.2 10 3/uL Above high normal 1.4-6.5 Urine Squamous Epithelial Cells July 30, 2024 11:27am FEW #/LPF Abnormal (applies to non-numeric results) NONE/RARE Sodium Level July 30, 2024 11:55am July 30, 2024 11:55am 133 mmol/L Below low normal 136-145 Neutrophils (%) (Auto) July 30, 2024 11:55am July 30, 2024 11:55am 83.2 % Above high normal 43.0-75.0 Urine Urobilinoge n July 30, 2024 11:27am 0.2 EU/dL 0.2-1.0 Total Bilirubin July 30, 2024 11:55am July 30, 2024 11:55am 0.5 mg/dL 0.2-1.0 Platelet Count July 30, 2024 11:55am July 30, 2024 11:55am 252 10 3/uL 150-450 Urine WBC July 30, 2024 11:27am 0-2 #/HPF Abnormal (applies to non-numeric results) NONE SEEN Total Protein July 30, 2024 11:55am July 30, 2024 11:55am 8.0 g/dL 6.4-8.2 Red Blood Count July 30, 2024 11:55am July 30, 2024 11:55am 4.91 10 6/uL 4.70-6.10 Red Cell Distributio n Width July 30, 2024 11:55am July 30, 2024 11:55am 11.9 % 11.0-15.0 Corrected White Blood Count July 30, 2024 11:55am July 30, 2024 11:55am 12.3 10 3/uL Above high normal 4.0-11.0 Vital Signs Vital Reading Result Reference Range Collection Date/Time Height 69 [in_i] August 19, 2024 10:06am Weight 71.44 kg August 19, 2024 10:06am Heart Rate 98 /min 60-100 August 19, 2024 10:06am Respiratory rate 12 /min 12-24 August 19, 2024 10:06am BP Systolic 162 mm[Hg] 100-140 August 19, 2024 10:06am BP Diastolic 113 mm[Hg] 60-100 August 19, 2024 10:06am BMI (Body Mass Index) 23.2 kg/m2 July 262024 10:06am Advance Directives Advance Directive Response Recorded Date/ Time Advance Directives No January 28, 2024 3:31pm Insurance Providers Guarantor Kait Gan Address [address] [facility] [address] Contact Info. Home Phone: Payer Policy Id Subscriber's Name Subscriber Id Kyme ctive Date Expiration Date Bernard PARK/NICK [id number] Jolene Luciano [id number] Medicare [id number] Kait Balderas [id number] Regular Insurance [id number] Kait Gan [id number] Encounters Encounter Location(s) Arrival/Admit Date Discharge/Depart Date Provider(s) Departed Physician/Prov ider Office Visit -[facility] May 31, 2024 2:52pm May 31, 2024 2:59pm Christen Gunter APRN CNP Departed Physician/Prov ider Office Visit -[facility] July 05, 2024 2:52pm July 05, 2024 3:06pm Chuck Sanchez DO Non-patient / Non-visit -[facility] July 30, 2024 11:27am Jonah Marcial DO Departed Physician/Prov ider Office Visit -[facility] August 12, 2024 3:29pm August 12, 2024 3:48pm Dalia Jenkins MD Departed Physician/Prov ider Office Visit -[facility] August 19, 2024 10:00am August 19, 2024 10:35am Chuck Sanchez DO Recent Diagnosis Onset Date Admit Date Pernicious anemia Unknown May 31 2:52pm Pernicious anemia Unknown August 12 3:29pm IFG (impaired fasting glucose) Unknown J 2024 10:00am IgM monoclonal gammopathy of undetermined significance (MGUS) Unknown August 19, 2024 10:00am Lumbar spondylosis Unknown August 19 10:00am Lung nodule Unknown August 19, 2024 10:00am Nicotine addiction Unknown August 19 10:00am Rheumatoid arthritis in remission Unknown August 19, 2024 10:00am MGUS (monoclonal gammopathy of unknown significance) Unknown August 19, 2024 10:00am Medicare annual wellness visit, subsequent Unkno wn August 19, 2024 10:00am Screening PSA (prostate specific antigen) Unknow n August 19, 2024 10:00am Assessments Diagnosis Onset Date Resolution Status Admit Date Pernicious anemia acute May 312024 2:52pm Pernicious anemia acute August 122024 3:29pm IFG (impaired fasting glucose) acute August 19, 2024 10:00am IgM monoclonal gammopathy of undetermined significance (MGUS) acute August 19, 2024 10:00am Lumbar spondylosis acute July 262024 10:00am Lung nodule acute August 19 10:00am Nicotine addiction acute July 262024 10:00am Rheumatoid arthritis in remission acute August 19, 2024 10:00am MGUS (monoclonal gammopathy of unknown significance) deleted August 19, 2024 10:00am Medicare annual wellness visit, subsequent noneactive August 19 10:00am Screening PSA (prostate specific antigen) noneactive August 19 10:00am Plan of Treatment Author Chuck Sanchez [facility] Authored August 16, 2024 7:39 am I have instructed this patie nt on a healthy diet and exercise program. I have also reviewed age-appropriate preventive testing recommended. His A1C is between 5.7-6.5%. Instructed on low carb, high fiber diet. Instructed on routine exercise program for 30-60min three times weekly. Instructed on correlation between obesity and insulin resistance and encouraged to lose weight. Monitor A1C every 6 months. Monitor for worsening anemia, hypercalcemia and azotemia. Monitor SPEP This patient has been encouraged to quit tobacco use immediately. They are aware of the hazards associated with tobacco use, including but not limited to respiratory infections, vascular disease and cancers. Scheduled for yearly LDCT chest for lung cancer screening is recommended. LDCT w/o suspicious nodules: 07/2023 Continue yearly surveillance. He denies CP, dyspnea or hemoptysis LDCT w/o suspicious nodules: 07/2023 I have instructed this patient to avoid bending, twisting or lifting. I have also instructed on use of intermittent heat and ice as needed. They may schedule a massage or gentle manipulation. I instructed them on the safe use of Tylenol, Lidocaine and stretching exercises. I informed them of alternative modes of treatment for severe pain, which may include referral to physical therapy or pain management. Continue medical therapy w/o interruption. f/u Rheumatology I have recommended yearly PSA testing. I have informed him that the PSA can be elevated w/ cancer, infection and enlarged prostates. I have explained to the patient, that If his PSA is elevated, while there are many causes, referral will be recommended to r/o cancer. He would be referred to Urology, who may recommend an MRI, TRUS/bx or possibly continued monitoring. He is agreeable to this plan of action PSA: 0.29 - 07/2023 Future Tests Future scheduled test information is unavailable Pending Tests Test Name Ordered Date Scheduled Date Comprehensive Metabolic Panel August 19, 2024 10 :26am Future Visits Future appointment information is unavailable Referrals to Other Providers Referral information is unavailable Future Procedures Procedure Name Ordered Date Scheduled Date A1C with Estimated Average Glu August 19, 2024 1 0:30am Complete Blood Count Auto Diff August 19, 2024 1 0:26am Immunofixation,Serum August 19, 2024 10:31am Free K+L LT Chains, Qn, S August 19, 2024 10:31a m Lipid Panel August 19, 2024 10:26am PSA Screen (Yearly Only) August 19, 2024 10:26am Protein Electrophoresis, Serum August 19, 2024 1 0:31am Future Medications Future medication information is unavailable Patient Instructions Patient instructions are unavailable
--- OUTSIDE RECORDS SUMMARY | 2024-08-25 12:49 | XMS_ITS | Clinical Summary ---
Author Organization [facility] Address [address] [place] [address] Care Team Providers Care Geodetic Computator Name Role Phone Chuck Sanchez Primary Care Provider [phone] Allergies No known active allergies Medications methotrexate 2.5 MG tablet TAKE 7 TABLETS BY MOUTH ONCE A WEEK 07/16/2022 Active Active Problems Problem Noted Date Diagnosed Date Rheumatoid arthritis 01/08/2023 Resolved Problems Problem Noted Date Diagnosed Date Resolved Date Abscess of foot 11/27/2022 11/27/2022 Deformity of metatarsal 11/27/2022 100 05/2022 Encounters Date Type Department Care Team Description 08/18/2024 11:00 AM EDT Office Visit [facility] [address] [place] [phone] Liban Santos, DPM FACFAS Neoplasm of uncertain behavior of skin (Primary Dx); Verruca plantaris; Left foot pain 08/18/2024 Bamboo flowsheet [facility] [address] [place] [address] Liban Santos, DPM FACFAS 07/21/2024 11:10 AM EDT Office Visit [facility] [address] [place] [address] Liban Santos, DPM FACFAS Acquired hallux valgus, left (Primary Dx); Metatarsal deformity, left 07/21/2024 Bamboo flowsheet [facility] [address] [place] [address] Liban Santos, DPM FACFAS 06/23/2024 10:40 AM EDT Office Visit [facility] [address] [place] [address] Liban Santos, DPM FACFAS Acquired hallux valgus, left (Primary Dx); Metatarsal deformity, left 06/23/2024 Bamboo flowsheet [facility] [address] [place] [address] Liban Santos, DPM FACFAS 06/09/2024 10:20 AM EDT Office Visit [facility] [address] [place] [address] Liban Santos, DPM FACFAS Acquired hallux valgus, left (Primary Dx); Left foot pain; Metatarsal deformity, left; 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) 06/09/2024 10:15 AM EDT Ancillary Procedure [facility] [address] [place] [address] 06/09/2024 Bamboo flowsheet [facility] [address] [place] [address] Liban Santos, DPM FACFAS 06/02/2024 10:50 AM EDT Office Visit [facility] [address] [place] [address] Liban Santos, DPM FACFAS Pain due to internal orthopedic prosthetic device, initial encounter (Primary Dx) 06/02/2024 Telephone [facility] [address] [place] [address] Mony Child Medication 06/02/2024 Bamboo flowsheet [facility] [address] [place] [address] Liban Santos, DPM FACFAS 05/26/2024 11:30 AM EDT Office Visit [facility] [address] [place] [address] Liban Santos, DPM FACFAS Acquired hallux valgus, left (Primary Dx); Metatarsal deformity, left; 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) 05/26/2024 Bamboo flowsheet [facility] [address] [place] [address] Liban Santos, DPM FACFAS from Last 3 [...] Mass Index 26.61 08/18/2024 11:23 AM EDT Plan of Treatment Upcoming Encounters Date Type Department Care Team (Late st Contact Info) Description 09/17/2024 11:00 AM EDT Office Visit [facility] [address] [place] [address] Liban Santos, DPM FACFAS [address] [place] [address] Health Maintenance Due Date Last Done Comments [...] Metatarsal deformity, left Acquired hallux valgus, left from Last 3 Months Results * XR foot 3+ views left (06/09/2024 10:14 AM EDT) Anatomical Region Laterality Modality Lower Extremities, Foot Left [facility] Imaging Narrative 06/09/2024 11:03 PM EDT Imaging Result: Three views were taken today AP/MO/LAT foot: No fractures or dislocations seen excellent position alignment of the great toe joint as well surgery metatarsal resection Liban Santos DPM FACFAS IMG XR PROCEDURES Final Result from Last 3 Months Insurance MEDICARE [facility] Care Teams Geodetic Computator Relationship Specialty Start Date End Date Chuck Sanchez DO [address] [place] [id number] PCP - General Internal Medicine 08/16/22
--- OUTSIDE RECORDS SUMMARY | 2024-08-25 12:49 | XMS_ITS | Encounter Summary ---
Author Organization [facility] Address [address] [place] [address] Care Team Providers Care Cad Engineer Name Role Phone Chuck Sanchez DO Primary Care Provider [phone] Encounter Details Date Type Department Care Team ([facility] Contact Info) Description 05/13/2024 Abstract [facility] [address] [place] [address] Liban Santos, DPM FACFAS [address] [place] [address] Social History Tobacco Use Types [...] Department Care Team (Late Contact Info) Description 09/17/2024 11:00 AM EDT Office Visit [facility] [address] [place] [address] Liban Santos, DPM FACFAS [address] [place] [address] documented as of this encounter Visit Diagnoses Not on filedocumented in this encounter Care Teams Cad Engineer Relationship Specialty Start Date End Date Chuck Sanchez DO [address] [facility] [place] [address] PCP - General Internal Medicine 08/16/22 documented as of this encounter
--- OUTSIDE RECORDS SUMMARY | 2024-08-25 12:49 | XMS_ITS | Encounter Summary ---
Author Organization [facility] Address [address] [place] [address] Care Team Providers Care Library Associate Name Role Phone Chuck Sanchez DO Primary Care Provider [phone] Encounter Details Date Type Department Care Team (Late st Contact Info) Description 03/13/2023 Abstract [facility] [address] [place] [address] Sondra Sanchez MA Social History Tobacco Use [...] EDT Office Visit [facility] [address] [place] [address] Liban Santos, DPM FACFAS [address] [facility] [place], [place] [id number] documented as of this encounter Visit Diagnoses Not on filedocumented in this encounter Care Teams Library Associate Relationship Specialty Start Date End Date Chuck Sanchez DO [address] [place] [phone] PCP - General Internal Medicine 08/16/22 documented as of this encounter
--- OUTSIDE RECORDS SUMMARY | 2024-08-25 12:49 | XMS_ITS | Encounter Summary ---
Author Organization [facility] Address [address] [place] [address] Care Team Providers Care Plastic Manager Name Role Phone Chuck Sanchez DO Primary Care Provider [phone] Encounter Details Date Type Department Care Team (Late st Contact Info) Description 03/14/2023 Abstract [facility] [address] [place] [address] Sondra Sanchez MA Social History Tobacco Use [...] EDT Office Visit [facility] [address] [place] [address] Liban Santos, DPM FACFAS [address] [facility] [place], [place] [id number] documented as of this encounter Visit Diagnoses Not on filedocumented in this encounter Care Teams Plastic Manager Relationship Specialty Start Date End Date Chuck Sanchez DO [address] [place] [phone] PCP - General Internal Medicine 08/16/22 documented as of this encounter
--- OUTSIDE RECORDS SUMMARY | 2024-08-25 12:49 | XMS_ITS | Encounter Summary ---
Author Organization [facility] Address [address] [place] [address] Care Team Providers Care Property And Equipment Clerk Name Role Phone Chuck Sanchez DO Primary Care Provider [phone] Encounter Details Date Type Department Care Team (Late st Contact Info) Description 03/19/2023 Abstract [facility] [address] [place] [phone] Sondra Sanchez MA Social History Tobacco Use [...] EDT Office Visit [facility] [address] [place] [phone] Liban Santos, DPM FACFAS [address] [facility] [place], [place] [id number] documented as of this encounter Visit Diagnoses Not on filedocumented in this encounter Care Teams Property And Equipment Clerk Relationship Specialty Start Date End Date Chuck Sanchez DO [address] [place] [phone] PCP - General Internal Medicine 08/16/22 documented as of this encounter
--- OUTSIDE RECORDS SUMMARY | 2024-08-25 12:49 | XMS_ITS | Encounter Summary ---
Author Organization [facility] Address [address] [place] [address] Care Team Providers Care Bill Clerk Name Role Phone Chuck Sanchez DO Primary Care Provider [phone] Encounter Details Date Type Department Care Team ([facility] Contact Info) Description 08/18/2024 Bamboo flowsheet [facility] [address] [place] [address] Liban Santos, DPM FACFAS [address] [place] [address] Social History Tobacco Use Types Packs/Day Years [...] EDT Office Visit [facility] [address] [place] [address] Liban Santos, DPM FACFAS [address] [place] [address] documented as of this encounter Visit Diagnoses Not on filedocumented in this encounter Care Teams Bill Clerk Relationship Specialty [place] [address] [place] [phone] PCP - General Internal Medicine 08/16/22 documented as of this encounter
--- NOTE | 2024-08-25 12:50 | CT_ITS ---
The [address] [address] Patient Name: CORINE LAWTON MRN: [id number] date: 1950 Sex: M Assigned Patient Location: CT Current Patient Location: CT Accession/Order Number: [id number] Exam Date: 08/25/2024 13:43 Report Date: 08/25/2024 13:45 At the request of: ALEX GORE DO Procedure: CT lung screening low-dose CT CHEST WITHOUT CONTRAST, LOW DOSE SCREENING: CLINICAL DATA: A 74-year old current smoker COMPARISON: Lung screening CT 08/12/2023 TECHNIQUE: Noncontrast axial CT scan images of the chest were obtained under the low dose screening CT protocol. Coronal and sagittal reconstructed images were also submitted. FINDINGS: Mediastinum : Suboptimal evaluation due to low-dose technique. Thoracic aorta appears normal in caliber. Pulmonary trunk appears nondilated. No pericardial effusion. No lymphadenopathy. The esophagus is grossly unremarkable. Lungs: No focal consolidation, pneumothorax or pleural effusion. Trachea and distal airways appear patent. Diffuse bronchial wall thickening. Mild lung scarring. Calcified granuloma right lung apex. No suspicious noncalcified pulmonary nodule or mass. Upper abdomen: No acute findings. Bony thorax and chest wall: Soft tissues surrounding the chest wall demonstrate no acute findings. Osseous structures demonstrate degenerative change. CT/CT lung screening low-dose IMPRESSION: NO SUSPICIOUS PULMONARY NODULE OR MASS. LUNG - RADS Version 1.0 Assessment: Category 1, Negative (No nodules and definitely benign nodules). Management: Continue annual lung screening with LDCT in 12 months. Impression dictated by: Marty Pringle Jr., D.O. 08/25/2024 1:45 PM Dictation [facility] Electronically authenticated by: [id number] Y Date: 08/25/2024 13:45
--- OUTSIDE RECORDS SUMMARY | 2024-08-25 12:50 | XMS_ITS | Encounter Summary ---
Author Organization [facility] Address [address] [place] [address] Care Team Providers Care Tafe Lecturer Name Role Phone Chuck Sanchez DO Primary Care Provider [phone] Encounter Details Date Type Department Care Team ([facility] Contact Info) Description 11/24/2022 Abstract [facility] [address] [place] [address] Liban Santos, DPM FACFAS [address] [place] [address] Social History Tobacco Use Types [...] Upcoming Encounters Date Type Department Care Team ([facility] Contact Info) Description 09/17/2024 11:00 AM EDT Office Visit [facility] [address] [place] [address] Liban Santos, DPM FACFAS [address] [place] [address] documented as of this encounter Visit Diagnoses Not on filedocumented in this encounter Care Teams Tafe Lecturer Relationship Specialty Start Date End Date Chuck Sanchez DO [address] [place] [address] PCP - General Internal Medicine 08/16/22 documented as of this encounter
--- OUTSIDE RECORDS SUMMARY | 2024-08-25 12:50 | XMS_ITS | Clinical Summary ---
Author Organization [facility] Address [address] [place] [address] Care Team Providers Care Radio Intelligence Operator Name Role Phone Chuck Sanchez Primary Care Provider [phone] Allergies No known active allergies Medications methotrexate [...] 75+ series) 05/03/2027 Insurance MEDICARE [place]ACA [id number] Care Teams Radio Intelligence Operator Relationship Specialty Start Date End Date Chuck Sanchez DO PCP - General Internal Medicine 10/03/14
== END 2024-08-25 12:48 | disposition home or self-care (01) ==
LOC: CT 12:48
PROVIDERS: PCP Internal Medicine; Visit Provider Internal Medicine
DX: F17.210 Nicotine dependence, cigarettes, uncomplicated (principal)
CPT/HCPCS: 71271

== ENCOUNTER 2024-08-30 10:49 | Outpatient (OUT) | payer MEDICARE, OTHER, SELFPAY ==
--- OUTSIDE RECORDS SUMMARY | 2024-08-18 10:51 | XMS_ITS ---
Author Name Auto Generated Organization OHIP Care Team Providers Care Yard Hostler Name Role Phone SHARI BALDERAS Attending Unavailable INES LIANG Attending Unavailable INES LIANG Referring Unavailable DOLSHARI POWER Attending Unavailable DOLSHARI POWER Attending Unavailable DOLSHARI POWER Attending Unavailable DOLSHARI POWER Attending Unavailable DOLSHARI POWER Attending Unavailable DOLSHARI POWER Attending Unavailable DOLSHARI POWER Attending Unavailable DOLSHARI POWER Referring Unavailable DOLSHARI POWER Attending Unavailable DOLSHARI POWER Attending Unavailable DOLSHARI POWER Attending Unavailable SHARI BALDERAS Referring Unavailable Chuck Sanchez Primary Care Unavailable Jonah Marcial Attending Unavailable Jonah Marcial Admitting Unavailable PROBLEMS No Problem Records Found PROCEDURES No Procedure Records Found RESULTS URINE CULTURE Observed: 07/30/2024 11:27 AM Status: F Source: [facility] 30,000 colonies/ml mixed bacterial skin contaminants 2 Days PERFORMED BY: [place] [address] PATHOLOGIST [employer] PROFESSIONAL MARIAH MANUEL M.D. Performed By: #### [facility] #### [address] ALLERGIES DATE TYPE / CODE NAME / CODE REACTION SEVERITY SOURCE 03/25/2024 Drug Allergy/[id number] (SNOMED CT) No Known Allergies/[id number] 88(RXNORM) Unknown [facility] ENCOUNTERS ADMIT/DISCHARGE ACCOUNT NUMBER ADMITTING ENCOUNTER CLASS LOCATION SOURCE 08/18/2024/08/19/19 [id number] Ambulatory Building:[facility] 07/30/2024/07/31/19 25 [id number] [facility] 07/21/2024/07/22/19 [id number] Ambulatory Building:[facility] 06/23/2024/06/24/19 25 [id number] Ambulatory Building:[facility] 06/09/2024/06/10/19 25 [id number] Ambulatory Building:[facility] 06/09/2024/06/10/19 25 [id number] Ambulatory Building:[facility] 06/02/2024/06/03/19 25 [id number] Ambulatory Building:[facility] 05/26/2024/05/27/19 25 [id number] Ambulatory Building:[facility] 05/20/2024/05/21/19 25 [id number] Ambulatory Building:[facility] 05/20/2024/05/21/19 25 [id number] Ambulatory Building:[facility] 05/10/2024/05/11/19 25 [id number] Ambulatory Building:[facility] 03/03/2024/03/03/19 25 [id number] Ambulatory Building:[facility] 03/03/2024/03/03/19 25 [id number] Ambulatory Building:[facility] 01/07/2024/01/07/20 24 [id number] Ambulatory Building:[facility] 11/26/2023/11/26/19 24 [id number] Ambulatory Building:[facility] 09/15/2023/09/15/19 24 [id number] Ambulatory Building:[facility] PAYERS ENCOUNTER GUARANTOR PAYER SUBSCRIBER SOURCE 08/18/2024 CORINE PHELPSBRETB: [address] [phone]: (HP) Primary Insurance:MEDICARE Policy Number: [id number] ve Date:2971-09-95Dto n Name:Medicare CORINE LAWTONJAMES: [id number], [place] [address] [facility] 08/18/2024 Secondary Insurance:[employer] LIFE INS COPolicy Number: [id number] Date:2017-08-24 CORINE LAWTONB: [id number], [place] [address] [facility] 07/30/2024 Corine Carballo N[address]rl[address] [address]Swh: (HP) Primary Insurance:Self PayPolicy Number: Effective Date:2024-07-30 [facility] 07/21/2024 CORINE LAWTONB: [id number] [address], [place] [address]Nwq: (HP) Primary Insurance:MEDICARE Policy Number: [id number] Date:0123-50-83Dea n Name:Medicare CORINE BHATIAB: [id number] [phone] [facility] 07/21/2024 Secondary Insurance:[employer] INS COPolicy Number: [id number] Date:2017-08-24 CORINE BHATIAB: [id number], [place] [address] [facility] 06/23/2024 CORINE BHATIAB: [id number] [address] [place], [place] [phone]: (HP) Primary Insurance:MEDICARE Policy Number: [id number] Date:3400-48-74Pdx n Name:Medicare CORINE BHATIAB: [id number] [place] [address] [facility] 06/23/2024 Secondary Insurance:[employer] INS COPolicy Number: [id number] Date:2017-08-24 CORINE BHATIAB: [id number] [place] [address] [facility] 06/09/2024 CORINE BHATIAB: [id number] [address], [place] [address]Tel: (HP) Primary Insurance:MEDICARE Policy Number: [id number] Date:4442-35-03Lxm n Name:Medicare CORINE BHATIAB: [id number], [place] [address] [facility] 06/09/2024 Secondary Insurance:[employer] INS COPolicy Number: [id number] Date:2017-08-24 CORINE LAWTONDOB: [id number] [address] [place], [place] [address] [facility] 06/09/2024 CORINE LAWTONDOB: [id number] [address] [phone]: (HP) Primary Insurance:MEDICARE Policy Number: [id number] Date:7461-77-10Vln n Name:Medicare CORINE LAWTONDOB: [id number], [place] [address] [facility] 06/09/2024 Secondary Insurance:[employer] INS COPolicy Number: [id number] Date:2017-08-24 CORINE LAWTONDOB: [id number] [phone] [facility] 06/02/2024 CORINE LAWTONDOB: [id number] [address], [place] [address]Tel: (HP) Primary Insurance:MEDICARE Policy Number: [id number] Date:3193-58-95Wpj n Name:Medicare CORINE LAWTONDOB: [id number] [address] [address] [facility] 06/02/2024 Secondary Insurance:[employer] INS COPolicy Number: [id number] Date:2017-08-24 CORINE LAWTONDOB: [id number] [address] [phone] [facility] 05/26/2024 CORINE LAWTONDOB: [id number] [address] [phone]: (HP) Primary Insurance:MEDICARE Policy Number: [id number] Date:4193-06-74Cfu n Name:Medicare CORINE LAWTONDOB: [id number] [facility] 05/26/2024 Secondary Insurance:[employer] INS COPolicy Number: [id number] Date:2017-08-24 CORINE LAWTONDOB: [id number] [place] [phone] [facility] 05/20/2024 CORINE LAWTONDOB: [id number] [address], [place] [address]Tel: (HP) Primary Insurance:MEDICARE Policy Number: [id number] Date:5420-73-04Ole n Name:Medicare CORINE LAWTONDOB: [id number], [place] [address] [facility] 05/20/2024 Secondary Insurance:[facility] INS COPolicy Number: [id number] Date:2017-08-24 CORINE LAWTONDOB: [id number] [address], [place] [address] [facility] 05/20/2024 CORINE LAWTONDOB: [id number] [address], [place] [address]Tel: (HP) Primary Insurance:MEDICARE Policy Number: [id number] Date:4479-21-69Tki n Name:Medicare CORINE LAWTONDOB: [id number] [address] [place] [phone] [facility] 05/20/2024 Secondary Insurance:[facility] LIFE INS COPolicy Number: [id number] Date:2017-08-24 CORINE LAWTONDOB: [id number] [address] [facility] 05/10/2024 CORINE LAWTONDOB: [id number] [address] [place] [address]Cbl: (HP) Primary Insurance:MEDICARE Policy Number: [id number] Date:7082-84-67Ojn n Name:Medicare CORINE LAWTONDOB: [id number] [address] [facility] 05/10/2024 Secondary Insurance:[employer] INS COPolicy Number: [id number] Date:2022-02-24 CORINE LAWTONDOB: [id number] [facility] 03/03/2024 CORINE LAWTONDOB: [id number] [address] [place] [address]Iiu: (HP) Primary Insurance:MEDICARE Policy Number: [id number] Date:2272-66-60Mhn n Name:Medicare CORINE LAWTONDOB: [id number] [facility] 03/03/2024 Secondary Insurance:[employer] INS COPolicy Number: [id number] Date:2022-02-24 CORINE LAWTONDOB: [id number] [facility] 03/03/2024 CORINE LAWTONDOB: [id number] [address] [place] [address]Wiy: (HP) Primary Insurance:MEDICARE Policy Number: [id number] Date:5917-47-77Fsc n Name:Medicare CORINE LAWTONDOB: [id number], [place] [address] [facility] 03/03/2024 Secondary Insurance:[employer] INS COPolicy Number: [id number] Date:2022-02-24 CORINE LAWTONDOB: [id number] [address], [place] [address] [facility] 01/07/2024 CORINE LAWTONDOB: [id number] [address], [place] [address]Kzw: () Primary Insurance:MEDICARE Policy Number: [id number] Date:9332-21-56Xwt n Name:Medicare CORINE BHATIAB: [id number] [phone] [facility] 01/07/2024 Secondary Insurance:[employer] COPolicy Number: [id number] Date:2022-02-24 CORINE LAWTONDOB: [id number], [place] [address] [facility] 11/26/2023 CORINE LAWTONDOB: [id number] [address]Tel: () Primary Insurance:MEDICARE Policy Number: [id number] Date:4541-60-16Wtp n Name:Medicare CORINE BHATIAB: [id number], [place] [address] [facility] 11/26/2023 Secondary Insurance:[employer] INS COPolicy Number: [id number] Date:2022-02-24 CORINE LAWTONDOB: [id number] [phone] [facility] 09/15/2023 CORINE LAWTONDOB: [id number] [address] [phone]: () Primary Insurance:MEDICARE Policy Number: [id number] Date:7370-61-84Usq n Name:Medicare CORINE LAWTONDOB: [id number] [phone] [facility] 09/15/2023 Secondary Insurance:[employer] INS COPolicy Number: [id number] Date:2022-02-24 CORINE MENDOSA: [id number] [address] [place] [address] [facility] EPIC
--- OUTSIDE RECORDS SUMMARY | 2024-08-18 11:00 | XMS_ITS | Encounter Summary ---
Author Organization [facility] Address [address] [place] [address] Care Team Providers Care Gas Reverser Name Role Phone Chuck Sanchez DO Primary Care Provider [phone] Reason for Visit * Reason Comments Follow-up F/U B/L foot check Encounter Details Date Type Department Care Team (Late st Contact Info) Description 08/18/2024 11:00 AM EDT Office Visit [facility] [address] [place] [address] Liban Santos, DPM FACFAS [address] [facility] [place] [address] Neoplasm of uncertain behavior of skin (Primary [...] secondary to the pain. They have attempted qmvk-jad-qzgsieirrzx- inflammatory medications as well as njix-fsz-hfmaoup wart treatment to no avail. Allergies: No [...] < 3 seconds Digits 1-5 bilateral NEURO: [place] Gab 5.07 monofilament was intact B/L. Vibratory [...] EDT Office Visit [facility] [address] [place] [address] Liban Santos DPM FACFAS [address] [place] [address] documented as of this encounter Visit Diagnoses Diagnosis Neoplasm of uncertain behavior of skin- Primary Verruca plantaris Plantar wart Left foot pain Pain in soft tissues of limb documented in this encounter Care Teams Gas Reverser Relationship Specialty Start Date End Date Chuck Sanchez DO [address] [place] [phone] PCP - General Internal Medicine 08/16/22 documented as of this encounter
--- OUTSIDE RECORDS SUMMARY | 2024-08-30 10:54 | XMS_ITS | Encounter Summary ---
Author Organization [facility] Address [address] [place] [address] Care Team Providers Care It Solutions Sales Consultant Name Role Phone Chuck Sanchez DO Primary Care Provider [phone] Encounter Details Date Type Department Care Team ([facility] Contact Info) Description 05/13/2024 Abstract [facility] [address] [place] [address] Liban Santos, DPM FACFAS [address] [place] [address] Social History Tobacco Use Types [...] EDT Office Visit [facility] [address] [place] [address] Liban Santos, DPM FACFAS [address] [place] [address] documented as of this encounter Visit Diagnoses Not on filedocumented in this encounter Care Teams It Solutions Sales Consultant Relationship Specialty Start Date End Date Chuck Sanchez DO [address] [facility] [place] [address] PCP - General Internal Medicine 08/16/22 documented as of this encounter
--- OUTSIDE RECORDS SUMMARY | 2024-08-30 10:55 | XMS_ITS | Encounter Summary ---
Author Organization [facility] Address [address] [place] [address] Care Team Providers Care Epic Cupid Analyst Name Role Phone Chuck Sanchez DO Primary Care Provider [phone] Encounter Details Date Type Department Care Team (Late st Contact Info) Description 03/14/2023 Abstract [facility] [address] [place] [phone] Sondra Sanchez MA Social History Tobacco Use [...] EDT Office Visit [facility] [address] [place] [address] Liban Santos, DPM FACFAS [address] [facility] [place] [place], [place] [phone] documented as of this encounter Visit Diagnoses Not on filedocumented in this encounter Care Teams Epic Cupid Analyst Relationship Specialty Start Date End Date Chuck Sanchez DO [address] [place] [phone] PCP - General Internal Medicine 08/16/22 documented as of this encounter
--- OUTSIDE RECORDS SUMMARY | 2024-08-30 10:55 | XMS_ITS | Encounter Summary ---
Author Organization [facility] Address [address] [place] [address] Care Team Providers Care Nascar Driver Name Role Phone Chuck Sanchez DO Primary Care Provider [phone] Encounter Details Date Type Department Care Team ([facility] Contact Info) Description 11/24/2022 Abstract [facility] [address] [place] [address] Liban Santos, DPM FACFAS [address] [place] [address] Social History Tobacco Use Types [...] Upcoming Encounters Date Type Department Care Team ([facility] Contact Info) Description 09/17/2024 11:00 AM EDT Office Visit [facility] [address] [place] [address] Liban Santos, DPM FACFAS [address] [place] [address] documented as of this encounter Visit Diagnoses Not on filedocumented in this encounter Care Teams Nascar Driver Relationship Specialty Start Date End Date Chuck Sanchez DO [address] [place] [address] PCP - General Internal Medicine 08/16/22 documented as of this encounter
--- OUTSIDE RECORDS SUMMARY | 2024-08-30 10:55 | XMS_ITS | Clinical Summary ---
Author Organization [facility] Address [address] [place] [address] Care Team Providers Care Grocery Packer Name Role Phone Chuck Sanchez Primary Care Provider [phone] Allergies No known active allergies Medications methotrexate [...] EDT Office Visit [facility] [address] [place] [address] Liban Santos, DPM FACFAS Neoplasm of uncertain behavior of skin (Primary Dx); Verruca plantaris; Left foot pain 08/18/2024 Bamboo flowsheet [facility] [address] [place] [address] Liban Santos, DPM FACFAS 07/21/2024 11:10 AM EDT Office Visit [facility] [address] [place] [address] Liban Santos, DPM FACFAS Acquired hallux valgus, left (Primary Dx); Metatarsal deformity, left 07/21/2024 Bamboo flowsheet [facility] [address] [place] [address] Liban Santos, DPM FACFAS 06/23/2024 10:40 AM EDT Office Visit [facility] [address] [place] [address] Liban Santos, DPM FACFAS Acquired hallux valgus, left (Primary Dx); Metatarsal deformity, left 06/23/2024 Bamboo flowsheet [facility] [address] [place] [address] Liban Santos, DPM FACFAS 06/09/2024 10:20 AM EDT Office Visit [facility] [address] [place] [address] Liban Santos, DPM FACFAS Acquired hallux valgus, left (Primary Dx); Left foot pain; Metatarsal deformity, left; 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) 06/09/2024 10:15 AM EDT Ancillary Procedure [facility] [address] [place] [address] 06/09/2024 Bamboo flowsheet [facility] [address] [place] [address] Liban Santos, DPM FACFAS 06/02/2024 10:50 AM EDT Office Visit [facility] [address] [place] [address] Liban Santos, DPM FACFAS Pain due to internal orthopedic prosthetic device, initial encounter (Primary Dx) 06/02/2024 Telephone [facility] [address] [place] [address] Mony Child Medication 06/02/2024 Bamboo flowsheet [facility] [address] [place] [address] Liban Santos, DPM FACFAS from [...] EDT Office Visit [facility] [address] [place] [address] Liban Santos, DPM FACFAS [address] [facility] [place] [address] Health Maintenance Due Date Last Done Comments CT Colonography 1950 Colonoscopy 1950 FIT 1950 FOBT 1950 Sigmoidoscopy 1950 Pneumococcal Vaccine: 65+ Ye ars (2 of 2 - PPSV23) 02/05/2019 02/05/2018 Influenza Vaccine (#1) 2024 , 12/11/2020, 12/12/2017, Additional history exists Colorectal Cancer Screening 08/30/2025 FIT-DNA 08/30/2025 08/30/2022, 06/22/2019 Procedures Procedure Name Priority Date/Time Associated Diagnosis [...] Result from Last 3 Months Insurance MEDICARE [facility] Care Teams Grocery Packer Relationship Specialty Start Date End Date Chuck Sanchez DO [address] [facility] [place] [address] PCP - General Internal Medicine 08/16/22
--- OUTSIDE RECORDS SUMMARY | 2024-08-30 10:55 | XMS_ITS | Encounter Summary ---
Author Organization [facility] Address [address] [place] [address] Care Team Providers Care Seam Rubbing Machine Operator Name Role Phone Chuck Sanchez DO Primary Care Provider [phone] Encounter Details Date Type Department Care Team (Late st Contact Info) Description 03/19/2023 Abstract [facility] [address] [place] [address] Sondra Sanchez MA Social History Tobacco Use [...] EDT Office Visit [facility] [address] [place] [address] Liban Santos, DPM FACFAS [address] [facility] [place], [place] [phone] documented as of this encounter Visit Diagnoses Not on filedocumented in this encounter Care Teams Seam Rubbing Machine Operator Relationship Specialty Start Date End Date Chuck Sanchez DO [address] [place] [address] PCP - General Internal Medicine 08/16/22 documented as of this encounter
--- OUTSIDE RECORDS SUMMARY | 2024-08-30 10:55 | XMS_ITS | Clinical Summary ---
Author Organization [facility] Address [address] [place] [address] Care Team Providers Care Business Rules Analyst Name Role Phone Chuck Sanchez Primary Care Provider [phone] Allergies No known active allergies Medications methotrexate [...] 2023 Advance Directive Discussion 02/25/2024 Influenza Vaccine (#1) 2024 8, 11/27/2016, 12/01/2015 RSV Vaccine (1 - 1-dose 75+ series) 05/03/2027 Insurance MEDICARE [place] [id number] Care Teams Business Rules Analyst Relationship Specialty Start Date End Date Chuck Sanchez DO PCP - General Internal Medicine 10/03/14
--- OUTSIDE RECORDS SUMMARY | 2024-08-30 10:55 | XMS_ITS | Encounter Summary ---
Author Organization [facility] Address [address] [place] [address] Care Team Providers Care Technician Automatic Name Role Phone Chuck Sanchez DO Primary Care Provider [phone] Encounter Details Date Type Department Care Team ([facility] Contact Info) Description 08/18/2024 Bamboo flowsheet [facility] [address] [place] [address] Liban Santos, DPM FACFAS [address] [place] [address] Social History Tobacco Use Types Packs/Day Years [...] EDT Office Visit [facility] [address] [place] [address] Liban Santos, DPM FACFAS [address] [place] [address] documented as of this encounter Visit Diagnoses Not on filedocumented in this encounter Care Teams Technician Automatic Relationship Specialty [place] [address] [place] [phone] PCP - General Internal Medicine 08/16/22 documented as of this encounter
--- OUTSIDE RECORDS SUMMARY | 2024-08-30 10:55 | XMS_ITS | Encounter Summary ---
Author Organization [facility] Address [address] [place] [address] Care Team Providers Care Fund Development Manager Name Role Phone Chuck Sanchez DO Primary Care Provider [phone] Encounter Details Date Type Department Care Team (Late st Contact Info) Description 03/13/2023 Abstract [facility] [address] [place] [address] Sondra Sanchez MA Social History Tobacco Use [...] EDT Office Visit [facility] [address] [place] [address] Liban Santos, DPM FACFAS [address] [facility] [place], [place] [phone] documented as of this encounter Visit Diagnoses Not on filedocumented in this encounter Care Teams Fund Development Manager Relationship Specialty Start Date End Date Chuck Sanchez DO [address] [place] [address] PCP - General Internal Medicine 08/16/22 documented as of this encounter
[2024-08-30 11:32] LABS: Hematocrit 41.2 % (42.0-54.0); Hemoglobin 13.8 g/dL (14.0-18.0); Immature Granulocytes Abs Auto 0.05 10^3/uL (0.00-0.03); Immature Granulocytes Pct Auto 0.8 % (0.0-0.5); Lymphocytes Absolute Auto 1.4 10^3/uL (1.2-3.8); Mean Corpuscular HGB Conc 33.5 g/dL (29.9-35.2); Mean Corpuscular Hemoglobin 31.4 pg (25.9-34.0); Mean Corpuscular Volume 93.8 fL (80.0-94.0); Platelet Count 214 10^3/uL (150-450); Red Blood Count 4.39 10^6/uL (4.70-6.10); White Blood Count 6.5 10^3/uL (4.0-11.0)
[2024-08-30 11:57] LABS: Alanine Aminotransferase 21 U/L (16-63); Albumin Globulin Ratio 0.9; Albumin Level 3.3 g/dL (3.4-5.0); Alkaline Phosphatase 75 U/L (46-116); Anion Gap 11.9; Aspartate Amino Transferase 16 U/L (15-37); Blood Urea Nitrogen 20.0 mg/dL (7.0-18.0); Calcium 8.7 mg/dL (8.5-10.1); Carbon Dioxide 29.5 mmol/L (21.0-32.0); Chloride 106 mmol/L (98-107); Cholesterol 144 mg/dL (<=200); Estimated GFR (African America >60 (>=60 mL/min/1.73m^2); Estimated GFR (Non-African Ame >60 (>=60 mL/min/1.73m^2); Globulin 3.7 g/dL; Glucose 122 mg/dL (74-106); HDL Cholesterol 55 mg/dL (40-60); Potassium 4.4 mmol/L (3.5-5.1); Sodium 143 mmol/L (136-145); Total Protein 7.0 g/dL (6.4-8.2); Triglycerides 40 mg/dL (<=150); VLDL CHOLESTEROL 8.0 mg/dL
[2024-09-01 11:09] LABS: Albumin 3.4 g/dL (2.9-4.4); Alpha-1-Globulin 0.2 g/dL (0.0-0.4); Alpha-2-Globulin 0.7 g/dL (0.4-1.0); Free Kappa Lt Chains,S 33.8 mg/L (3.3-19.4); Free Lambda Lt Chains,S 19.8 mg/L (5.7-26.3); Gamma Globulin 1.0 g/dL (0.4-1.8); Immunofixation Result, Serum Comment: (.); Immunoglobulin A, Qn, Serum 181 mg/dL (61-437); Kappa/Lambda Ratio,S 1.71 (0.26-1.65)
== END 2024-08-30 10:50 | disposition home or self-care (01) ==
LOC: LAB 10:51
PROVIDERS: PCP Internal Medicine; Visit Provider Internal Medicine
DX: R73.01 Impaired fasting glucose (principal); D47.2 Monoclonal gammopathy; R03.0 Elevated blood-pressure reading, without diagnosis of hypertension; D51.0 Vitamin B12 deficiency anemia due to intrinsic factor deficiency; Z12.5 Encounter for screening for malignant neoplasm of prostate; E78.00 Pure hypercholesterolemia, unspecified
CPT/HCPCS: 36415; 80053; 80061; 82784; 83036; 83521; 84155; 84165; 85025; 86334; G0103